=== PATIENT | male | born 1935 | race Caucasian/White ===

== ENCOUNTER → 2016-12-23 | Outpatient (CLI) | payer MEDICARE ==
[2016-12-23 16:07] LABS: Basophils % (A) 0 %; CH 31.7; CHCM 32.6; Eosinophils # (A) 0.1 k/uL (0-0.7); Eosinophils % (A) 2 %; HCT 44.3 % (39.0-53.0); HDW 2.35; HGB 14.1 gm/dL (13.0-17.5); Luc # (Auto) 0.12; Luc % (Auto) 2; Lymphocytes # (A) 1.2 k/uL (1.0-4.8); Lymphocytes % (A) 21 %; MCH 31.1 pg (25.0-35.0); MCHC 31.8 g/dL (31.0-37.0); MCV 97.6 fL (80.0-100.0); Monocytes # (A) 0.4 k/uL (0-1.0); Monocytes % (A) 6 %; Neutrophils # (A) 3.9 k/uL (1.3-7.7); Neutrophils % (A) 69 %; RBC 4.54 m/uL (4.30-5.90); RDW 12.5 % (11.5-15.5); WBC 5.6 k/uL (3.8-10.6); WBC (Perox) 5.45
[2016-12-23 16:17] LABS: INR 1.1 (<1.1); Partial Thromboplastin Time 22.4 sec (22.0-30.0); Prothrombin Time 10.7 sec (9.0-12.0)
[2016-12-23 16:22] LABS: ALT 41 U/L (21-72); AST 26 U/L (17-59); Alkaline Phosphatase 65 U/L (38-126); Anion Gap 9 mmol/L; Blood Urea Nitrogen 21 mg/dL (9-20); Calcium 8.9 mg/dL (8.4-10.2); Carbon Dioxide 27 mmol/L (22-30); Chloride 106 mmol/L (98-107); Glucose 86 mg/dL (74-99); Non-African American GFR(MDRD) >60 (>60 ml/min/1.73 sqM); Potassium 4.9 mmol/L (3.5-5.1); Sodium 142 mmol/L (137-145); Total Bilirubin 0.5 mg/dL (0.2-1.3); Total Protein 6.8 g/dL (6.3-8.2)
[2016-12-23 17:20] LABS: Hemoglobin A1C 5.7 % (4.2-6.1)
[2016-12-23 18:16] LABS: Erythrocyte Sedimentation Rate 2 mm/hr (0-15)
[2016-12-23 18:22] LABS: Vitamin B12 991 pg/mL
[2016-12-23 20:23] LABS: Treponemal Ab Non-Reactive (Non-Reactive)
[2016-12-23 20:39] LABS: ANA w/Reflex to Titer NEGATIVE (NEGATIVE)
[2016-12-24 05:44] LABS: Cardiolipin Ab IgG <9.0 GPL (<15); Cardiolipin Ab IgM 13.8 MPL (<12.5)
== END | disposition home or self-care (01) ==
LOC: LABWHC1 15:15
PROVIDERS: ATTEND Psychiatry & Neurology Neurology
DX: G20 Parkinson's disease (principal); R41.3 Other amnesia; G31.84 Mild cognitive impairment of uncertain or unknown etiology; R25.1 Tremor, unspecified; R90.82 White matter disease, unspecified
CPT/HCPCS: 36415; 80053; 82306; 82607; 82747; 83036; 83090; 84439; 84443; 85025; 85610; 85652; 85730; 86038; 86147; 86618; 86780

== ENCOUNTER 2019-06-22 22:35 | Inpatient (IN) | payer MEDICARE ==
--- NOTE | 2019-06-22 23:26 | ED ---
Altered Mental Status HPI - General Chief Complaint: Altered Mental Status Stated Complaint: sudden immobility Time Seen by Provider: 06/22/19 22:52 Source: patient, EMS Mode of arrival: EMS Limitations: altered mental status, physical limitation - History of Present Illness Initial Comments: This patient is an 83-year-old man with history of Parkinson's disease who comes by ambulance to be evaluated for a change in his mental status. The patient has been less active today and somewhat resistant to getting up and moving. He did have recent change in his Parkinson's disease regimen, which was made by Dr. Shea last week. She had been doing relatively well through Friday, being at a family gathering and interacting with people. Over the course of proximally past 24-30 hours, he has been less active around the home. Family states that when they try to get him up and help him walk he is resisting them. Patient is denying any pain or dyspnea. He denies complaints. MD Complaint: altered mental status Onset/Timin -: days(s) Severity: moderate Consistency of Symptoms: getting worse Context: change in medication Associated Symptoms: difficulty walking - Related Data Allergies Allergy/AdvReac Type Severity Reaction Status Date / Time No Known Allergies Allergy Verified 06/23/19 01:25 Review of Systems ROS Statement: Those systems with pertinent positive or pertinent negative responses have been documented in the HPI. ROS Other: All systems not noted in ROS Statement are negative. Constitutional: Reports: weakness. Denies: fever, chills Respiratory: Denies: cough, dyspnea Cardiovascular: Denies: chest pain, edema, syncope Gastrointestinal: Reports: diarrhea. Denies: abdominal pain, vomiting Genitourinary: Denies: dysuria, hematuria Musculoskeletal: Denies: back pain Neurological: Reports: weakness. Denies: headache, numbness General Exam Limitations: altered mental status, physical limitation General appearance: alert, in no apparent distress Head exam: Present: atraumatic, normocephalic Eye exam: Present: normal appearance. Absent: scleral icterus, conjunctival injection ENT exam: Present: normal oropharynx Neck exam: Present: normal inspection, full ROM Respiratory exam: Present: normal lung sounds bilaterally. Absent: respiratory distress, wheezes, rales, rhonchi, stridor Cardiovascular Exam: Present: regular rate, normal rhythm, normal heart sounds GI/Abdominal exam: Present: soft. Absent: distended, tenderness, guarding, rebound Extremities exam: Present: normal inspection, normal capillary refill. Absent: calf tenderness Neurological exam: Present: alert. Absent: oriented X3 (Patient is oriented to person and place but could not state the date.), motor sensory deficit Skin exam: Present: warm, dry, intact, normal color. Absent: rash Course Vital Signs 06/22/19 06/23/19 22:41 01:05 Temperature 98.6 F Pulse Rate 64 70 Respiratory 18 14 Rate Blood Pressure 136/94 146/96 O2 Sat by Pulse 96 98 Oximetry Medical Decision Making - Lab Data Result diagrams: 06/22/19 23:59 06/22/19 23:59 Lab Results 06/22/19 06/22/19 06/22/19 Range/Units 23:59 23:59 23:59 WBC 7.1 (3.8-10.6) k/uL RBC 4.43 (4.30-5.90) m/uL Hgb 14.0 (13.0-17.5) gm/dL Hct 42.1 (39.0-53.0) % MCV 95.2 (80.0-100.0) fL MCH 31.7 (25.0-35.0) pg MCHC 33.3 (31.0-37.0) g/dL RDW 14.0 (11.5-15.5) % Plt Count 179 (150-450) k/uL Neutrophils % 69 % Lymphocytes % 17 % Monocytes % 7 % Eosinophils % 4 % Basophils % 1 % Neutrophils # 4.9 (1.3-7.7) k/uL Lymphocytes # 1.2 (1.0-4.8) k/uL Monocytes # 0.5 (0-1.0) k/uL Eosinophils # 0.3 (0-0.7) k/uL Basophils # 0.0 (0-0.2) k/uL Sodium 140 (137-145) mmol/L Potassium 3.9 (3.5-5.1) mmol/L Chloride 105 (98-107) mmol/L Carbon Dioxide 26 (22-30) mmol/L Anion Gap 9 mmol/L BUN 24 H (9-20) mg/dL Creatinine 1.21 (0.66-1.25) mg/dL Est GFR (CKD-EPI)AfAm 64 (>60 ml/min/1.73 sqM) Est GFR (CKD-EPI)NonAf 55 (>60 ml/min/1.73 sqM) Glucose 98 (74-99) mg/dL POC Glucose (mg/dL) (75-99) mg/dL POC Glu Piccoloist ID Calcium 9.2 (8.4-10.2) mg/dL Total Bilirubin 0.3 (0.2-1.3) mg/dL AST 24 (17-59) U/L ALT 8 L (21-72) U/L Alkaline Phosphatase 79 (38-126) U/L Troponin I <0.012 (0.000-0.034) ng/mL Total Protein 7.2 (6.3-8.2) g/dL Albumin 4.2 (3.5-5.0) g/dL Urine Color Urine Appearance (Clear) Urine pH (5.0-8.0) Ur Specific Diller (1.001-1.035) Urine Protein (Negative) Urine Glucose (UA) (Negative) Urine Ketones (Negative) Urine Blood (Negative) Urine Nitrite (Negative) Urine Bilirubin (Negative) Urine Urobilinogen (<2.0) mg/dL Ur Leukocyte Esterase (Negative) Urine RBC (0-5) /hpf Urine WBC (0-5) /hpf Urine WBC Clumps (None) /hpf Ur Squamous Epith Cells (0-4) /hpf Urine Bacteria (None) /hpf Hyaline Casts (0-2) /lpf Urine Mucus (None) /hpf Urine Yeast (Budding) (None) /hpf 06/23/19 06/23/19 Range/Units 00:39 01:25 WBC (3.8-10.6) k/uL RBC (4.30-5.90) m/uL Hgb (13.0-17.5) gm/dL Hct (39.0-53.0) % MCV (80.0-100.0) fL MCH (25.0-35.0) pg MCHC (31.0-37.0) g/dL RDW (11.5-15.5) % Plt Count (150-450) k/uL Neutrophils % % Lymphocytes % % Monocytes % % Eosinophils % % Basophils % % Neutrophils # (1.3-7.7) k/uL Lymphocytes # (1.0-4.8) k/uL Monocytes # (0-1.0) k/uL Eosinophils # (0-0.7) k/uL Basophils # (0-0.2) k/uL Sodium (137-145) mmol/L Potassium (3.5-5.1) mmol/L Chloride (98-107) mmol/L Carbon Dioxide (22-30) mmol/L Anion Gap mmol/L BUN (9-20) mg/dL Creatinine (0.66-1.25) mg/dL Est GFR (CKD-EPI)AfAm (>60 ml/min/1.73 sqM) Est GFR (CKD-EPI)NonAf (>60 ml/min/1.73 sqM) Glucose (74-99) mg/dL POC Glucose (mg/dL) 91 (75-99) mg/dL POC Glu Piccoloist ID Marta Jorge Calcium (8.4-10.2) mg/dL Total Bilirubin (0.2-1.3) mg/dL AST (17-59) U/L ALT (21-72) U/L Alkaline Phosphatase (38-126) U/L Troponin I (0.000-0.034) ng/mL Total Protein (6.3-8.2) g/dL Albumin (3.5-5.0) g/dL Urine Color Yellow Urine Appearance Clear (Clear) Urine pH 5.5 (5.0-8.0) Ur Specific Diller 1.019 (1.001-1.035) Urine Protein Trace H (Negative) Urine Glucose (UA) Negative (Negative) Urine Ketones Negative (Negative) Urine Blood Negative (Negative) Urine Nitrite Negative (Negative) Urine Bilirubin Negative (Negative) Urine Urobilinogen <2.0 (<2.0) mg/dL Ur Leukocyte Esterase Moderate H (Negative) Urine RBC 2 (0-5) /hpf Urine WBC 32 H (0-5) /hpf Urine WBC Clumps Rare H (None) /hpf Ur Squamous Epith Cells <1 (0-4) /hpf Urine Bacteria Rare H (None) /hpf Hyaline Casts 9 H (0-2) /lpf Urine Mucus Occasional H (None) /hpf Urine Yeast (Budding) Occasional H (None) /hpf - EKG Data -: EKG Interpreted by Ne EKG shows normal: sinus rhythm, axis (Normal), intervals (Normal), QRS complexes (Normal), ST-T waves (Normal) Rate: normal (Rate 66 bpm) Interpretation: normal EKG Disposition Clinical Impression: Altered mental status, Dehydration, Urinary tract infection, Parkinsons disease Disposition: ADMITTED IP TO THIS HOSP Condition: Fair Is patient prescribed a controlled substance at d/c from ED?: No Referrals: Sohail Chavez DO [Primary Care Provider] - 1-2 days
[2019-06-23 00:42] LABS: Basophils % (A) 1 %; Eosinophils # (A) 0.3 k/uL (0-0.7); Eosinophils % (A) 4 %; HCT 42.1 % (39.0-53.0); Lymphocytes # (A) 1.2 k/uL (1.0-4.8); Lymphocytes % (A) 17 %; MCH 31.7 pg (25.0-35.0); MCHC 33.3 g/dL (31.0-37.0); MCV 95.2 fL (80.0-100.0); Mean Platelet Volume 7.6; Monocytes # (A) 0.5 k/uL (0-1.0); Monocytes % (A) 7 %; Neutrophils # (A) 4.9 k/uL (1.3-7.7); Neutrophils % (A) 69 %; Platelet Count 179 k/uL (150-450); RBC 4.43 m/uL (4.30-5.90); WBC 7.1 k/uL (3.8-10.6)
[2019-06-23 00:42] LABS: Glucose,Whole Blood 91 mg/dL (75-99)
[2019-06-23 00:56] LABS: Albumin 4.2 g/dL (3.5-5.0); Calcium 9.2 mg/dL (8.4-10.2); Total Bilirubin 0.3 mg/dL (0.2-1.3); Total Protein 7.2 g/dL (6.3-8.2)
--- NOTE | 2019-06-23 00:59 | XR ---
EXAM: XR Chest, 1 View CLINICAL HISTORY: ITS.REASON XR Reason: altered mental status TECHNIQUE: Frontal view of the chest. COMPARISON: No relevant prior studies available. FINDINGS: Lungs: Mild subsegmental atelectasis and/or scarring at the right base. Pleural space: Unremarkable. No pneumothorax. Heart: Unremarkable. No cardiomegaly. Mediastinum: Unremarkable. Bones/joints: Unremarkable. IMPRESSION: No acute cardiopulmonary disease.
[2019-06-23 01:10] LABS: Potassium 3.9 mmol/L (3.5-5.1)
[2019-06-23] MEDS ORDERED: SODIUM CHLORIDE 0.9% 1,000 ML IV ONE (01:39)
[2019-06-23 01:46] LABS: Appearance,Urine Clear (Clear); Bacteria,Urine Rare /hpf; Bilirubin,Urine Negative (Negative); Blood,Urine Negative (Negative); Budding Yeast,Urine Occasional /hpf; Color,Urine Yellow; Glucose,Urine (UA) Negative (Negative); Hyaline Casts,Urine 9 /lpf (0-2); Ketones,Urine Negative (Negative); Leukocyte Esterase,Urine Moderate (Negative); Mucus,Urine Occasional /hpf; Nitrite,Urine Negative (Negative); PH, Urine 5.5 (5.0-8.0); Protein,Urine Trace (Negative); RBC,Urine 2 /hpf (0-5); Specific Gravity,Urine 1.019 (1.001-1.035); Squamous Epithelial Cell,Urine <1 /hpf (0-4); Urobilinogen,Urine <2.0 mg/dL (<2.0)
[2019-06-23] MEDS ORDERED: LEVOFLOXACIN 750 MG TAB PO STA (02:12)
[2019-06-23] MEDS ORDERED: NALOXONE 0.4 MG/ML 1 ML VIAL IV PRN (02:57)
[2019-06-23] MEDS ORDERED: ACETAMINOPHEN TAB 325 MG TAB PO PRN (02:57)
[2019-06-23] MEDS ORDERED: ONDANSETRON 4 MG/2 ML VIAL IVP PRN (02:57)
[2019-06-23] MEDS ORDERED: SODIUM CHLORIDE 0.9% 1,000 ML IV SCH (03:00)
[2019-06-23] MEDS ORDERED: LORazepam 2 MG/ML INJ IM STA (11:21)
[2019-06-23] MEDS ORDERED: IPRATROPIUM-ALBUTEROL 3 ML NEB INHALATION PRN (11:23)
[2019-06-23] MEDS ORDERED: NITROGLYCERIN SL TABS 0.4 MG TAB SUBLINGUAL PRN (11:29)
[2019-06-23] MEDS ORDERED: AMMONIUM LACTATE 12% CREAM 140 GM TUBE TOPICAL PRN (11:29)
[2019-06-23] MEDS ORDERED: PRAMIPEXOLE 0.125 MG TAB PO SCH (11:30)
[2019-06-23] MEDS: IPRATROPIUM-ALBUTEROL 3 ML NEB INHALATION SCH ×3 (11:48→20:31)
[2019-06-23] MEDS ORDERED: IPRATROPIUM-ALBUTEROL 3 ML NEB INHALATION SCH (13:00)
--- NOTE | 2019-06-23 13:02 | P.CNNES ---
History of Present Illness Consult date: 06/23/19 Requesting physician: Ellie Mckeon Reason for Consult: Parkinson's disease Chief complaint: Confused and shaky History of Present Illness: This is an 83 yo male h/o Parkinson's disease who sees Dr. Shea in oupt. His PD med was just recently adjusted on 06/14/19. Since 06/21/19, he has been going downhill physically, moving less well and getting more confused. He is now floridly confused and agitated and pulled out his IV. No report of head trauma or seizure activity. While in the ER, he was found to be dehydrated and have a UTI. Nursing is working on getting access so IV treatment may resume. Patient cannot provide any meaningful history. My historical information was obtained by discussing the case with the family and reviewing available medical records in EMR. Review of Systems Unable to obtain due to AMS Medications and Allergies Home Medications Medication Instructions Recorded Confirmed Type Ammonium Lactate Cream [Lac-Hydrin 1 applic TOPICAL BID PRN 06/23/19 06/23/19 History 12% Cream] Aspirin 81 mg PO DAILY 06/23/19 06/23/19 History Carbidopa-Levodopa 25-100 mg 1 tab PO HS 06/23/19 06/23/19 History [Sinemet 25-100 mg] Carbidopa-Levodopa ER 50-200Mg 1 tab PO DAILY 06/23/19 06/23/19 History [Sinemet CR 50-200 mg] Furosemide [Lasix] 40 mg PO DAILY 06/23/19 06/23/19 History Garlic 1 tab PO DAILY 06/23/19 06/23/19 History Lansoprazole 30 mg PO DAILY 06/23/19 06/23/19 History Levothyroxine Sodium [Synthroid] 50 mcg PO DAILY 06/23/19 06/23/19 History Metoprolol Tartrate 12.5 mg PO DAILY 06/23/19 06/23/19 History Mometasone Furoate [Elocon 0.1% 1 applic TOPICAL DAILY 06/23/19 06/23/19 History Soln] Multivitamins, Thera [Multivitamin 1 tab PO DAILY 06/23/19 06/23/19 History (formulary)] Nitroglycerin 0.4 mg SL Q5M PRN 06/23/19 06/23/19 History Pramipexole [Mirapex] 0.125 mg PO BID 06/23/19 06/23/19 History Primidone [Mysoline] 50 mg PO DAILY 06/23/19 06/23/19 History Simvastatin 40 mg PO HS 06/23/19 06/23/19 History Spironolactone 12.5 mg PO DAILY 06/23/19 06/23/19 History Vitamin E (Dl,Tocopheryl Acet) 400 unit PO DAILY 06/23/19 06/23/19 History [Vitamin E] Allergies Allergy/AdvReac Type Severity Reaction Status Date / Time No Known Allergies Allergy Verified 06/23/19 09:32 Physical Examination - Vital Signs Vital Signs: Vital Signs Temp Pulse Pulse Resp BP BP Pulse Ox 06/23/19 12:02 120 H 06/23/19 11:48 116 H 06/23/19 06:48 97.5 F L 69 15 121/74 95 06/23/19 04:26 98.0 F 70 16 164/85 100 06/23/19 01:05 70 14 146/96 98 06/22/19 22:41 98.6 F 64 18 136/94 96 Intake and Output 06/22/19 06/23/19 06/23/19 22:59 06:59 14:59 Other: Weight 88.451 kg Gen Diffusely tremulous and confused HEENT NCAT Sclera without icterus O/P clear Neck Supple No carotid bruit Cor RRR no m/r/g Lungs CTAB Abd Soft NTND +BS Ext Warm to touch No edema Neuro MS Awake mumbles unintelligibly does not follow commands does not appear to communicate via other non-verbal means further detailed language function cannot be assessed CN PERRL blinks to threat bilaterally symmetric grimace +hypophonia +cough Motor Normal bulk Bilateral [place] Diffusely tremulous no asterixis, myoclonus or other adventitious movements DOWNS x4 but unable to cooperate for individual muscle group strength testing Sens Localizes to nailbed stim x4 Coord Cannot test due to AMS DTRs 2+/4 sym throughout Toes downgoing bilaterally No clonus at achilles Gait Deferred Results - Laboratory Findings CBC and BMP: 06/22/19 23:59 06/22/19 23:59 Abnormal Lab Findings: Abnormal Labs 06/22/19 06/23/19 23:59 01:25 BUN 24 H ALT 8 L Urine Protein Trace H Ur Leukocyte Esterase Moderate H Urine WBC 32 H Urine WBC Clumps Rare H Urine Bacteria Rare H Hyaline Casts 9 H Urine Mucus Occasional H Urine Yeast (Budding) Occasional H Assessment and Plan Assessment: Metabolic encephalopathy from dehydration and UTI Probable Parkinson's disease Plan: -We generally do not aggressively titrate levodopa in-house because it can easily worsen delirium, which he already has -Levodopa is best adjusted when patient is not acutely ill; family agree. I also do not believe his recent PD med titration led to his current neurological picture -IV access then IVF and antibiotics -Medical management per primary team -PT/OT when able -EEG if he does not improve mental status-noguera with medical treatment. Right now, it would be difficult to obtain a good recording due to his constant movements -Try to avoid benzodiazepine if possible as it can worsen his delirium when the effects of the sedative wear off -Will follow up -d/w patient/family at bedside in detail. All questions answered. Thank you for this consultation. Please call with ?. Time with Patient: Greater than 30 (Time spent in direct patient care, greater than 50% of which was spent in [id number] counseling and coordination of care: 70 minutes)
[2019-06-23] MEDS: PRIMIDONE 50 MG TAB PO SCH ×2 (13:20→21:01)
[2019-06-23] MEDS: METOPROLOL TARTRATE 12.5 MG TAB PO SCH ×3 (13:20→21:06)
[2019-06-23] MEDS: CARBIDOPA-LEVODOPA ER 50-200MG 1 EACH TABLET.ER PO SCH ×2 (13:20→17:28)
--- NOTE | 2019-06-23 13:49 | P.HPIM ---
History of Present Illness H&P Date: 06/23/19 Chief Complaint: Metabolic encephalopathy This is an 83-year-old male one of Dr. Chavez with a previous medical history significant for Parkinson disease as an outpatient follows with Dr. Shea, history of CAD post-PCI and stent placement under the care of card iology and regular basis, hypertension and hypertensive cardiovascular disease, hypothyroidism, patient was recently seen by Dr. Shea as an outpatient his Parkinson medications were adjusted and these adjustment were done on 06/14/2019 and by 06/21/2019 patient developed to have a significant confusion and he became more physically disabled not able to move extremities trying to fall backward and the patient has been having more confusion and mental status changes so he was brought to the ER at [facility] yesterday for evaluation he was found to have a mild UTI without evidence of sepsis, patient was started on IV antibiotic in the form of Levaquin and subsequently was switched to IV Rocephin however the patient did pull his IV because of his confusion and delirium he was seen in consultation by neurology was thought that the patient has metabolic encephalopathy due to UTI with possible sepsis and probable Parkinson disease without any evidence of any seizure activity at this time, he was recommended for the patient to be treated medically and hold off any benzodiazepine at this point in time since it may increased risk of confusion and delirium. Review of Systems ROS unobtainable: due to mental status (Could not be obtained as the patient has significant mental status changes.) Past Medical History Past Medical History: Coronary Artery Disease (CAD) (Parkinson disease.), COPD, Hyperlipidemia, Hypertension, Neurologic Disorder, Osteoarthritis (OA), Thyroid Disorder Smoking Status: Former smoker (Patient smoked about half pack currently is full for about 15 years and quit about 30 years ago.) - Past Family History Mother Family Medical History: Congestive Heart Failure (CHF) (Mother at age of 89 from congestive heart failure.) Father Family Medical History: Cancer (Father at age of 86 from urethral cancer.) Brother(s) Family Medical History: No Reported History (Patient has one brother no major medical problems.) Sister(s) Family Medical History: Cancer (Patient has 3 sisters one of them with lupus one with breast cancer and the third one with cancer of unknown origin) Son(s) Family Medical History: No Reported History (Patient has 2 sons no major medical problems.) Daughter(s) Family Medical History: Cancer (2 daughters one of them with papillary carcinoma of the thyroid with hyperlipidemia the other one with breast cancer status post bilateral mastectomy.) Medications and Allergies Home Medications Medication Instructions Recorded Confirmed Type Ammonium Lactate Cream [Lac-Hydrin 1 applic TOPICAL BID PRN 06/23/19 06/23/19 History 12% Cream] Aspirin 81 mg PO DAILY 06/23/19 06/23/19 History Carbidopa-Levodopa 25-100 mg 1 tab PO HS 06/23/19 06/23/19 History [Sinemet 25-100 mg] Carbidopa-Levodopa ER 50-200Mg 1 tab PO DAILY 06/23/19 06/23/19 History [Sinemet CR 50-200 mg] Furosemide [Lasix] 40 mg PO DAILY 06/23/19 06/23/19 History Garlic 1 tab PO DAILY 06/23/19 06/23/19 History Lansoprazole 30 mg PO DAILY 06/23/19 06/23/19 History Levothyroxine Sodium [Synthroid] 50 mcg PO DAILY 06/23/19 06/23/19 History Metoprolol Tartrate 12.5 mg PO DAILY 06/23/19 06/23/19 History Mometasone Furoate [Elocon 0.1% 1 applic TOPICAL DAILY 06/23/19 06/23/19 History Soln] Multivitamins, Thera [Multivitamin 1 tab PO DAILY 06/23/19 06/23/19 History (formulary)] Nitroglycerin 0.4 mg SL Q5M PRN 06/23/19 06/23/19 History Pramipexole [Mirapex] 0.125 mg PO BID 06/23/19 06/23/19 History Primidone [Mysoline] 50 mg PO DAILY 06/23/19 06/23/19 History Simvastatin 40 mg PO HS 06/23/19 06/23/19 History Spironolactone 12.5 mg PO DAILY 06/23/19 06/23/19 History Vitamin E (Dl,Tocopheryl Acet) 400 unit PO DAILY 06/23/19 06/23/19 History [Vitamin E] Allergies Allergy/AdvReac Type Severity Reaction Status Date / Time No Known Allergies Allergy Verified 06/23/19 09:32 Physical Exam Vitals: Vital Signs Temp Pulse Pulse Resp BP BP Pulse Ox 06/23/19 12:02 120 H 06/23/19 11:48 116 H 06/23/19 06:48 97.5 F L 69 15 121/74 95 06/23/19 04:26 98.0 F 70 16 164/85 100 06/23/19 01:05 70 14 146/96 98 06/22/19 22:41 98.6 F 64 18 136/94 96 Intake and Output 06/22/19 06/23/19 06/23/19 22:59 06:59 14:59 Other: Weight 88.451 kg - Constitutional General appearance: average body habitus, no acute distress - EENT Eyes: anicteric sclerae, EOMI, PERRLA, no scleral icterus, normal appearance ENT: hearing grossly normal, NA/AT, normal oropharynx, no thrush Ears: bilateral: normal - Neck Neck: no lymphadenopathy, normal ROM, rigidity, no stridor, no thyromegaly Carotids: bilateral: upstroke normal Thyroid: bilateral: normal size - Respiratory Respiratory: bilateral: diminished, wheezing, prolonged expiration, negative: dullness, rales, rhonchi - Cardiovascular Rhythm: regular Heart sounds: normal: S1, S2 Abnormal Heart Sounds: systolic murmur, no S3 Gallop, no S4 Gallop - Gastrointestinal General gastrointestinal: normal bowel sounds, soft, no splenomegaly, no tenderness, no umbilical hernia, ventral hernia - Integumentary Integumentary: normal, normal turgor - Neurologic Neurologic: CNII-XII intact - Musculoskeletal Musculoskeletal: strength equal bilaterally - Psychiatric Psychiatric: no A&O x's 3, no appropriate affect, no intact judgment & insight Results CBC & Chem 7: 06/22/19 23:59 06/22/19 23:59 Labs: Abnormal Lab Results - Last 24 Hours (Table) 06/22/19 06/23/19 Range/Units 23:59 01:25 BUN 24 H (9-20) mg/dL ALT 8 L (21-72) U/L Urine Protein Trace H (Negative) Ur Leukocyte Esterase Moderate H (Negative) Urine WBC 32 H (0-5) /hpf Urine WBC Clumps Rare H (None) /hpf Urine Bacteria Rare H (None) /hpf Hyaline Casts 9 H (0-2) /lpf Urine Mucus Occasional H (None) /hpf Urine Yeast (Budding) Occasional H (None) /hpf Microbiology - Last 24 Hours (Table) 06/23/19 01:25 Urine Culture - Preliminary Urine,Voided Thrombosis Risk Factor Assmnt - DVT/VTE Prophylaxis DVT/VTE Prophylaxis: Pharmacologic Prophylaxis ordered, Mechanical Prophylaxis ordered Assessment and Plan Assessment: Assessment and plan: 1. Metabolic encephalopathy due to possible UTI and sepsis along with Parkinson disease . Start the patient on IV fluid in the form of normal saline 75 mL an hour, start the patient on Rocephin 1 g IV piggyback every 24 hours, discontinue Levaquin for now, urine culture and blood culture, monitor the patient very closely, neurology consultation for further evaluation and recommendation. 2. Parkinson disease. Continue patient on Sinemet 25/100 milligrams at bedtime along with the Sinemet CR 50/200 one tablet in the morning, continue pramipexole 0.125 mg orally twice every day, neurology consultation for further recommendations. 3. CAD post-PCI. Continue metoprolol 12.5 mg once every day, aspirin 81 mg once every day, Lipitor 20 mg orally once every day, nitro glycerin as needed, continue with Lasix and spironolactone. 4. Hypertension and hypertensive cardiovascular disease. Continue metoprolol 12.5 mg orally once every day. 5. Hyperlipidemia. Continue Lipitor 20 mg orally once every day. 6. Hypothyroidism. Continue patient on Synthroid 50 g orally once every day. 7. DVT prophylaxis. Heparin 5000 units subcutaneously every 8 hours. 8. GI prophylaxis. Protonix 40 mg orally once every day. 9. UTI with sepsis. Continue patient on Rocephin 1 g piggyback every 24 hours. Check urine culture and blood cultures. 10. Patient is full code. 11. Admitted to inpatient. Estimate a length of stay 2 midnights.
[2019-06-23] MEDS ORDERED: ACETAMINOPHEN IV (For NPO) 1,000 MG in EMPTY BAG 1 BAG IVPB STA (14:57)
[2019-06-23] MEDS: PANTOPRAZOLE 40 MG TABLET PO SCH (17:28)
[2019-06-23] MEDS: SPIRONOLACTONE 25 MG TAB PO SCH (17:29)
[2019-06-23] MEDS: CARBIDOPA-LEVODOPA 25-100 MG 1 EACH TAB PO SCH ×2 (17:30→21:06)
[2019-06-23] MEDS: PRAMIPEXOLE 0.25 MG TAB PO SCH (17:30)
[2019-06-23] MEDS: SODIUM CHLORIDE 0.9% 1,000 ML IV SCH (19:20)
[2019-06-23] MEDS ORDERED: CARBIDOPA-LEVODOPA 25-100 MG 1 EACH TAB PO SCH (21:00)
[2019-06-23] MEDS: ATORVASTATIN 20 MG TAB PO SCH (21:07)
--- NOTE | 2019-06-23 23:54 | P.CONS ---
History of Present Illness - Reason for Consult Consult date: 06/23/19 Urinary tract infection Requesting physician: Charis Manuel - Chief Complaint Weakness and confusion x 1 day - History of Present Illness Patient is 83-year-old male with a past medical history significant for Parkinson disease for the patient follows with , patient did have a recent adjustment of his Parkinson medication, and apparently the patient seemed to have some symptoms of weakness that has been blamed on his adjustment in his medication, [place] and apparently was doing okay except being weak no clear history of any mosquito bites on the way back they did stayed at one of his daughter and per he did joke around with his grandkids however that evening the patient started getting more weak and un able to walk around and falling with the symptoms the patient was brought into [facility] ER the patient was afebrile initially chest x-ray was negative for any pneumonia patient UA was positive the patient was started on Levaquin and subsequently switched to Rocephin the patient did spike a fever of 102F this afternoon that prompted this infection this consultation apparently the patient was slightly agitated and worked out for the patient has received a dose of Ativan and the patient seemed to be more lethargic at the time of my evaluation making cc slightly limited and most information has been obtained from the and the nursing staff Review of Systems Positive points has been mentioned in HPI complete review could not be obtained because of the patient mental status Past Medical History Past Medical History: Coronary Artery Disease (CAD) (Parkinson disease.), COPD, Hyperlipidemia, Hypertension, Neurologic Disorder, Osteoarthritis (OA), Thyroid Disorder Smoking Status: Former smoker (Patient smoked about half pack currently is full for about 15 years and quit about 30 years ago.) - Past Family History Mother Family Medical History: Congestive Heart Failure (CHF) (Mother at age of 89 from congestive heart failure.) Father Family Medical History: Cancer (Father at age of 86 from urethral cancer.) Brother(s) Family Medical History: No Reported History (Patient has one brother no major medical problems.) Sister(s) Family Medical History: Cancer (Patient has 3 sisters one of them with lupus one with breast cancer and the third one with cancer of unknown origin) Son(s) Family Medical History: No Reported History (Patient has 2 sons no major medical problems.) Daughter(s) Family Medical History: Cancer (2 daughters one of them with papillary carcinoma of the thyroid with hyperlipidemia the other one with breast cancer status post bilateral mastectomy.) Medications and Allergies Home Medications Medication Instructions Recorded Confirmed Type Ammonium Lactate Cream [Lac-Hydrin 1 applic TOPICAL BID PRN 06/23/19 06/23/19 History 12% Cream] Aspirin 81 mg PO DAILY 06/23/19 06/23/19 History Carbidopa-Levodopa 25-100 mg 1 tab PO BID 06/23/19 06/23/19 History [Sinemet 25-100 mg] Carbidopa-Levodopa ER 50-200Mg 1 tab PO DAILY 06/23/19 06/23/19 History [Sinemet CR 50-200 mg] Furosemide [Lasix] 40 mg PO DAILY 06/23/19 06/23/19 History Garlic 1 tab PO DAILY 06/23/19 06/23/19 History Lansoprazole 30 mg PO DAILY 06/23/19 06/23/19 History Levothyroxine Sodium [Synthroid] 50 mcg PO DAILY 06/23/19 06/23/19 History Metoprolol Tartrate 12.5 mg PO DAILY 06/23/19 06/23/19 History Mometasone Furoate [Elocon 0.1% 1 applic TOPICAL DAILY 06/23/19 06/23/19 History Soln] Multivitamins, Thera [Multivitamin 1 tab PO DAILY 06/23/19 06/23/19 History (formulary)] Nitroglycerin 0.4 mg SL Q5M PRN 06/23/19 06/23/19 History Pramipexole [Mirapex] 0.25 mg PO TID 06/23/19 06/23/19 History Simvastatin 40 mg PO HS 06/23/19 06/23/19 History Spironolactone 12.5 mg PO DAILY 06/23/19 06/23/19 History Vitamin E (Dl,Tocopheryl Acet) 400 unit PO DAILY 06/23/19 06/23/19 History [Vitamin E] Allergies Allergy/AdvReac Type Severity Reaction Status Date / Time No Known Allergies Allergy Verified 06/23/19 09:32 Physical Exam Vitals: Vital Signs Temp Pulse Pulse Resp BP BP Pulse Ox 06/23/19 14:37 102.9 F H 114 H 15 126/73 92 L 06/23/19 12:02 120 H 06/23/19 11:48 116 H 06/23/19 06:48 97.5 F L 69 15 121/74 95 06/23/19 04:26 98.0 F 70 16 164/85 100 06/23/19 01:05 70 14 146/96 98 06/22/19 22:41 98.6 F 64 18 136/94 96 Intake and Output 06/23/19 06/23/19 06/23/19 06:59 14:59 22:59 Intake Total 180 Balance 180 Intake: Oral 180 GENERAL DESCRIPTION: Elderly male lying in bed, no distress. No tachypnea or accessory muscle of respiration use. HEENT: Shows Pallor , no scleral icterus. Oral mucous membrane is dry. No pharyngeal erythema or thrush NECK: Trachea central, no thyromegaly. LUNGS: Unlabored breathing. Decreased basilar the base No wheeze or crackle. HEART: S1, S2, regular rate and rhythm. No loud murmur ABDOMEN: Soft, no tenderness , guarding or rigidity, no organomegaly EXTREMITIES: No edema of feet. SKIN: No rash, no masses palpable. NEUROLOGICAL: The patient is sleepy and lethargic and orientation could not be determined slight neck rigidity Results CBC & Chem 7: 06/22/19 23:59 06/22/19 23:59 Labs: Abnormal Lab Results - Last 24 Hours (Table) 06/22/19 06/23/19 Range/Units 23:59 01:25 BUN 24 H (9-20) mg/dL ALT 8 L (21-72) U/L Urine Protein Trace H (Negative) Ur Leukocyte Esterase Moderate H (Negative) Urine WBC 32 H (0-5) /hpf Urine WBC Clumps Rare H (None) /hpf Urine Bacteria Rare H (None) /hpf Hyaline Casts 9 H (0-2) /lpf Urine Mucus Occasional H (None) /hpf Urine Yeast (Budding) Occasional H (None) /hpf Microbiology - Last 24 Hours (Table) 06/23/19 01:25 Urine Culture - Preliminary Urine,Voided Assessment and Plan Assessment: 1-patient with fever and mental status changes-- in this patient who to have a positive UA underlying urinary source not entirely excluded likely from enteric gram-negative pathogen, as the patient currently with no other obvious focus of infection chest x-ray was negative abdomen is soft on clinical examination and no evidence of any cellulitis or joint swelling, underlying TRAFFIC ENUMERATOR infection need to be ruled out as well, however RN mention his mentation seemed to have gone down after he did receive a dose of Ativan, hence we will hold on lumbar puncture at this point hoping for the Ativan effect to be gone by tomorrow morning, if no improvement LP should be considered (1) Urinary tract infection Current Visit: Yes Status: Acute Code(s): N39.0 - URINARY TRACT INFECTION, SITE NOT SPECIFIED SNOMED Code(s): 72496571 Plan: 1-Rocephin 1 g IV piggyback daily 2-gentle IV fluid 3-if no improvement in mentation by tomorrow to consider LP we will follow on clinical condition and culture to further adjust medication if needed Thank you for this consultation will follow this patient along with you Time with Patient: Greater than 30
[2019-06-24] MEDS: SODIUM CHLORIDE 0.9% 1,000 ML IV SCH ×2 (02:23→12:47)
[2019-06-24] MEDS: LEVOTHYROXINE 50 MCG TAB PO SCH (05:36)
[2019-06-24 07:04] LABS: HCT 35.3 % (39.0-53.0); MCH 32.5 pg (25.0-35.0); MCHC 33.9 g/dL (31.0-37.0); MCV 95.9 fL (80.0-100.0); Mean Platelet Volume 7.3; Platelet Count 159 k/uL (150-450); RBC 3.68 m/uL (4.30-5.90); RDW 12.7 % (11.5-15.5); WBC 9.6 k/uL (3.8-10.6)
[2019-06-24 07:11] LABS: Albumin 3.1 g/dL (3.5-5.0); Calcium 8.8 mg/dL (8.4-10.2); Potassium 3.7 mmol/L (3.5-5.1); Total Bilirubin 0.6 mg/dL (0.2-1.3); Total Protein 5.5 g/dL (6.3-8.2)
[2019-06-24] MEDS: IPRATROPIUM-ALBUTEROL 3 ML NEB INHALATION SCH ×4 (08:26→20:15)
[2019-06-24] MEDS: CARBIDOPA-LEVODOPA ER 50-200MG 1 EACH TABLET.ER PO SCH (09:45)
[2019-06-24] MEDS: PRAMIPEXOLE 0.25 MG TAB PO SCH ×3 (09:45→16:58)
[2019-06-24] MEDS: FUROSEMIDE 40 MG TAB PO SCH (09:46)
[2019-06-24] MEDS: VITAMIN E (DL,TOCOPHERYL ACET) 400 UNIT CAP PO SCH (09:46)
[2019-06-24] MEDS: SPIRONOLACTONE 25 MG TAB PO SCH (09:46)
[2019-06-24] MEDS: TRIAMCINOLONE 0.1% CREAM 80 GM TUBE TOPICAL SCH (09:46)
[2019-06-24] MEDS: PANTOPRAZOLE 40 MG TABLET PO SCH (09:46)
[2019-06-24] MEDS: METOPROLOL TARTRATE 12.5 MG TAB PO SCH (09:46)
[2019-06-24] MEDS: ASPIRIN 81 MG PO SCH (09:46)
[2019-06-24] MEDS: CARBIDOPA-LEVODOPA 25-100 MG 1 EACH TAB PO SCH ×2 (09:46→16:58)
--- NOTE | 2019-06-24 10:11 | P.PN ---
Subjective Progress Note Date: 06/24/19 Principal diagnosis: AMS/metabolic encephalopathy More awake and alert. Conversive. c/o thirst. No new neuro c/o. Objective - Vital Signs Vital signs: Vital Signs Temp 97.4 F L 06/24/19 07:00 Pulse 67 06/24/19 07:00 Resp 16 06/24/19 07:00 BP 126/74 06/24/19 07:00 Pulse Ox 97 06/24/19 07:00 Intake & Output 06/23/19 06/24/19 06/24/19 18:59 06:59 18:59 Intake Total 180 500 Balance 180 500 Intake: Intake, IV Titration 500 Amount Sodium Chloride 0.9% 1, 500 000 ml @ 100 mls/hr IV . Q10H [facility] Rx#:[id number] Oral 180 Other: Voiding Method Diaper # Voids 1 - Exam Gen NAD Pleasant and cooperative MS A+Ox3 Knows 06/2019 in [place], [place] and [place] President Tells me about his great-grandchildren being born in this hospital Able to follow all commands CN II-XII grossly intact no nystagmus +hypophonia Motor Normal bulk Bilateral cogwheeling at wrist Bilateral resting tremor with bradykinesia DOWNS x4 Sens Intact to LT x4 Coord No dysmetria as he holds onto my hand with each of his DTRs 2+/4 sym throughout Gait Deferred - Labs CBC & Chem 7: 06/24/19 06:40 06/24/19 06:40 Labs: Abnormal Lab Results - Last 24 Hours (Table) 06/24/19 06/24/19 Range/Units 06:40 06:40 RBC 3.68 L (4.30-5.90) m/uL Hgb 12.0 L (13.0-17.5) gm/dL Hct 35.3 L (39.0-53.0) % Chloride 113 H (98-107) mmol/L AST 87 H (17-59) U/L ALT 17 L (21-72) U/L Total Protein 5.5 L (6.3-8.2) g/dL Albumin 3.1 L (3.5-5.0) g/dL Microbiology - Last 24 Hours (Table) 06/22/19 23:59 Blood Culture - Preliminary Blood No Growth after 24 hours 06/23/19 01:25 Urine Culture - Preliminary Urine,Voided Assessment and Plan Assessment: Metabolic encephalopathy from dehydration and UTI- much improved with rehydration and antibiotic treatment Probable Parkinson's disease- stable Plan: -We generally do not aggressively titrate levodopa or dopamine agonist in-house as they can easily precipitate or worsen delirium in an acutely ill patient -Continue his current outpatient PD meds. Follow up with outpatient neurology for med adjustment -IVF and antibiotics -DAIRY NUTRITION SPECIALIST infection less likely given significant improvement of his mental status with above treatment; ID following as well, appreciate input -Medical management per primary team -PT/OT -No need for EEG given resolution of his metabolic encephalopathy with medical treatment -Avoid benzodiazepines if possible -d/w patient at bedside in detail. All questions answered -No further inpatient neuro recs at this time. Will revisit patient prn. Please call with new ?. Thank you again for this consultation. Time with Patient: Less than 30 (Time spent in direct patient care, greater than 50% of which was spent in [id number] counseling and coordination of care: 25 minutes)
--- NOTE | 2019-06-24 13:41 | P.PN ---
Subjective Progress Note Date: 06/24/19 This is an 83-year-old male one of Dr. Chavez with a previous medical history significant for Parkinson disease as an outpatient follows with Dr. Shea, history of CAD post-PCI and stent placement under the care of cardiology and regular basis, hypertension and hypertensive cardiovascular di sease, hypothyroidism, patient was recently seen by Dr. Shea as an outpatient his Parkinson medications were adjusted and these adjustment were done on 06/14/2019 and by 06/21/2019 patient developed to have a significant confusion and he became more physically disabled not able to move extremities trying to fall backward and the patient has been having more confusion and mental status changes so he was brought to the ER at [facility] yesterday for evaluation he was found to have a mild UTI without evidence of sepsis, patient was started on IV antibiotic in the form of Levaquin and subsequently was switched to IV Rocephin however the patient did pull his IV because of his confusion and delirium he was seen in consultation by neurology was thought that the patient has metabolic encephalopathy due to UTI with possible sepsis and probable Parkinson disease without any evidence of any seizure activity at this time, he was recommended for the patient to be treated medically and hold off any benzodiazepine at this point in time since it may increased risk of confusion and delirium. 06/24: Patient has been seen by Dr. Abdullahi with recommendations continue Rocephin. Urine culture and blood culture are in progress. He has been afebrile overnight. WBC count remains normal. If no improvement in mentation and an LP was recommended. Patient has had significant improvement overnight. He was able to eat almost all of his breakfast. Tremors have resolved slowly after 1 dose of IM Ativan 0.5 mg. The patient has been seen by Dr. Gavin for metabolic encephalopathy secondary to dehydration and UTI. He has recommended continuing patient same outpatient medications for his Parkinson's disease. No need for EEG and avoid benzodiazepines. Heart rate this morning is 108, blood pressure 126/74, pulse ox 97% on room air. Objective - Vital Signs Vital signs: Vital Signs Temp 97.4 F L 06/24/19 07:00 Pulse 108 H 06/24/19 10:48 Resp 16 06/24/19 07:00 BP 126/74 06/24/19 07:00 Pulse Ox 97 06/24/19 07:00 Intake & Output 06/23/19 06/24/19 06/24/19 18:59 06:59 18:59 Intake Total 180 500 Balance 180 500 Intake: Intake, IV Titration 500 Amount Sodium Chloride 0.9% 1, 500 000 ml @ 100 mls/hr IV . Q10H [facility] Rx#:[id number] Oral 180 Other: Voiding Method Diaper # Voids 1 - Exam Review of Systems ROS unobtainable: due to mental status (Could not be obtained as the patient has significant mental status changes.) - Constitutional General appearance: average body habitus, no acute distress - EENT Eyes: anicteric sclerae, EOMI, PERRLA, no scleral icterus, normal appearance ENT: hearing grossly normal, NA/AT, normal oropharynx, no thrush Ears: bilateral: normal - Neck Neck: no lymphadenopathy, normal ROM, rigidity, no stridor, no thyromegaly Carotids: bilateral: upstroke normal Thyroid: bilateral: normal size - Respiratory Respiratory: bilateral: diminished, wheezing, prolonged expiration, negative: dullness, rales, rhonchi - Cardiovascular Rhythm: regular Heart sounds: normal: S1, S2 Abnormal Heart Sounds: systolic murmur, no S3 Gallop, no S4 Gallop - Gastrointestinal General gastrointestinal: normal bowel sounds, soft, no splenomegaly, no tend erness, no umbilical hernia, ventral hernia - Integumentary Integumentary: normal, normal turgor - Neurologic Neurologic: CNII-XII intact - Musculoskeletal Musculoskeletal: strength equal bilaterally - Psychiatric Psychiatric: A&O x's 3, appropriate affect, intact judgment & insight. Patient is able to answer questions and follow commands. - Labs CBC & Chem 7: 06/24/19 06:40 06/24/19 06:40 Labs: Abnormal Lab Results - Last 24 Hours (Table) 06/24/19 06/24/19 Range/Units 06:40 06:40 RBC 3.68 L (4.30-5.90) m/uL Hgb 12.0 L (13.0-17.5) gm/dL Hct 35.3 L (39.0-53.0) % Chloride 113 H (98-107) mmol/L AST 87 H (17-59) U/L ALT 17 L (21-72) U/L Total Protein 5.5 L (6.3-8.2) g/dL Albumin 3.1 L (3.5-5.0) g/dL Microbiology - Last 24 Hours (Table) 06/22/19 23:59 Blood Culture - Preliminary Blood No Growth after 24 hours 06/23/19 01:25 Urine Culture - Preliminary Urine,Voided Assessment and Plan Plan: 1. Metabolic encephalopathy due to possible UTI and sepsis along with Parkinson disease. Continue IV fluid in the form of normal saline 75 mL an hour, Rocephin 1 g IV piggyback every 24 hours, urine culture and blood culture are pending, consult with neurology and infectious disease appreciated. 2. Parkinson disease. Continue patient on Sinemet 25/100 milligrams at bedtime along with the Sinemet CR 50/200 one tablet in the morning, continue pramipexole 0.125 mg orally twice every day, neurology consultation for further recommendations. 3. CAD post-PCI. Continue metoprolol 12.5 mg once every day, aspirin 81 mg onc e every day, Lipitor 20 mg orally once every day, nitro glycerin as needed, continue with Lasix and spironolactone. 4. Hypertension and hypertensive cardiovascular disease. Continue metoprolol 12.5 mg orally once every day. 5. Hyperlipidemia. Continue Lipitor 20 mg orally once every day. 6. Hypothyroidism. Continue patient on Synthroid 50 g orally once every day. 7. DVT prophylaxis. Heparin 5000 units subcutaneously every 8 hours. 8. GI prophylaxis. Protonix 40 mg orally once every day. 9. UTI with sepsis. Continue patient on Rocephin 1 g piggyback every 24 hours. Check urine culture and blood cultures. CODE STATUS: NO code. Discharge plan: To be determined. PT and OT on consult. Impression and plan of care have been directed as dictated by the signing physician. Ellie Mckeon nurse practitioner acting as scribe for signing physician.
[2019-06-24] MEDS: FLUCONAZOLE 100 MG TAB PO SCH (18:54)
[2019-06-24] MEDS: ATORVASTATIN 20 MG TAB PO SCH (20:56)
[2019-06-24] MEDS ORDERED: LEVOFLOXACIN 750 MG TAB PO SCH (21:00)
--- NOTE | 2019-06-24 22:04 | PN ---
PROGRESS NOTE DATE OF SERVICE: 06/24/2019 REASON FOR FOLLOWUP: Fever, possible UTI. INTERVAL HISTORY: The patient's fever is currently resolved. The patient seems to be a little bit more awake and alert. The patient denied any headache to me. No nausea, no vomiting. No abdominal pain or any diarrhea. PHYSICAL EXAMINATION: Blood pressure 104/62 with a pulse of 66, temperature 98.4. He is 96% on room air. General description is an elderly male lying in bed in no distress. RESPIRATORY SYSTEM: Unlabored breathing. Clear to auscultation anteriorly. HEART: S1, S2. Regular rate and rhythm. ABDOMEN: Soft. No tenderness. LABS: Hemoglobin is 12, WBC 9.6, BUN of 17, creatinine 1.09. Urine culture showing Barby albicans. Blood culture so far negative. DIAGNOSTIC IMPRESSION AND PLAN: Patient admitted to hospital with a fever and mental status changes with a concern for a urinary tract infection. Now urine is showing Barby albicans. We will add Diflucan and monitor his clinical course closely. Continue supportive care. MMODL / IJN: [id number] /
[2019-06-25] MEDS: SODIUM CHLORIDE 0.9% 1,000 ML IV SCH (01:02)
[2019-06-25] MEDS: LEVOTHYROXINE 50 MCG TAB PO SCH (05:52)
[2019-06-25] MEDS: IPRATROPIUM-ALBUTEROL 3 ML NEB INHALATION SCH ×4 (07:46→20:11)
[2019-06-25] MEDS: PANTOPRAZOLE 40 MG TABLET PO SCH (08:19)
[2019-06-25] MEDS: CARBIDOPA-LEVODOPA ER 50-200MG 1 EACH TABLET.ER PO SCH (08:19)
[2019-06-25] MEDS: ASPIRIN 81 MG PO SCH (08:19)
[2019-06-25] MEDS: SPIRONOLACTONE 25 MG TAB PO SCH (08:19)
[2019-06-25] MEDS: METOPROLOL TARTRATE 12.5 MG TAB PO SCH (08:19)
[2019-06-25] MEDS: FUROSEMIDE 40 MG TAB PO SCH (08:19)
[2019-06-25] MEDS: VITAMIN E (DL,TOCOPHERYL ACET) 400 UNIT CAP PO SCH (08:19)
[2019-06-25] MEDS: FLUCONAZOLE 100 MG TAB PO SCH (08:19)
[2019-06-25] MEDS: PRAMIPEXOLE 0.25 MG TAB PO SCH ×3 (08:19→16:40)
[2019-06-25] MEDS: CARBIDOPA-LEVODOPA 25-100 MG 1 EACH TAB PO SCH ×2 (08:20→16:40)
[2019-06-25 09:43] LABS: Calcium 8.2 mg/dL (8.4-10.2); Potassium 3.9 mmol/L (3.5-5.1); Total Bilirubin 0.5 mg/dL (0.2-1.3); Total Protein 5.4 g/dL (6.3-8.2)
--- NOTE | 2019-06-25 14:03 | P.PN ---
Subjective Progress Note Date: 06/25/19 This is an 83-year-old male one of Dr. Chavez with a previous medical history significant for Parkinson disease as an outpatient follows with Dr. Shea, history of CAD post-PCI and stent placement under the care of cardiology and regular basis, hypertension and hypertensive cardiovascular di sease, hypothyroidism, patient was recently seen by Dr. Shea as an outpatient his Parkinson medications were adjusted and these adjustment were done on 06/14/2019 and by 06/21/2019 patient developed to have a significant confusion and he became more physically disabled not able to move extremities trying to fall backward and the patient has been having more confusion and mental status changes so he was brought to the ER at [facility] yesterday for evaluation he was found to have a mild UTI without evidence of sepsis, patient was started on IV antibiotic in the form of Levaquin and subsequently was switched to IV Rocephin however the patient did pull his IV because of his confusion and delirium he was seen in consultation by neurology was thought that the patient has metabolic encephalopathy due to UTI with possible sepsis and probable Parkinson disease without any evidence of any seizure activity at this time, he was recommended for the patient to be treated medically and hold off any benzodiazepine at this point in time since it may increased risk of confusion and delirium. 06/24: Patient has been seen by Dr. Abdullahi with recommendations continue Rocephin. Urine culture and blood culture are in progress. He has been afebrile overnight. WBC count remains normal. If no improvement in mentation and an LP was recommended. Patient has had significant improvement overnight. He was able to eat almost all of his breakfast. Tremors have resolved slowly after 1 dose of IM Ativan 0.5 mg. The patient has been seen by Dr. Gavin for metabolic encephalopathy secondary to dehydration and UTI. He has recommended continuing patient same outpatient medications for his Parkinson's disease. No need for EEG and avoid benzodiazepines. Heart rate this morning is 108, blood pressure 126/74, pulse ox 97% on room air. 06/25: Patient has been afebrile since the afternoon of June 23. Heart rate 67, blood pressure 136/82, pulse ox 96% on 2 L nasal cannula. Urine culture has been finalized with Barby. Dr. Abdullahi has added in Diflucan. Patient is continued on ceftriaxone. Initial blood culture no growth at 48 hours. Repeat blood cultures obtained on June 23 are showing no growth after 24 hours. Patient is awake and alert. He states he is feeling fine. He denies any new complaints. He is eating well. PT and OT to see the patient today. Discussed discharge plan with patient and his . He is agreeable to go to subacute rehab at [facility] as he does have a granddaughter that works there. Case management has been updated. Patient will require insurance authorization authorization for subacute rehab and we will plan for discharge on Friday. Objective - Vital Signs Vital signs: Vital Signs Temp 98.1 F 06/25/19 07:00 Pulse 67 06/25/19 07:00 Resp 16 06/25/19 07:00 BP 136/82 06/25/19 07:00 Pulse Ox 96 06/25/19 07:00 Intake & Output 06/24/19 06/25/19 06/25/19 18:59 06:59 18:59 Intake Total 780 Output Total 200 600 Balance 580 -600 Intake: Oral 780 Output: Urine 200 600 Other: Voiding Method Diaper Urinal Diaper # Voids 1 - Exam Review of Systems Constitutional: No fever, no chills, no night sweats. No weight change. Reports weakness EENT: No headache. No nasal drainage or congestion. No epistaxis. No sore throat. Lungs: No shortness of breath, cough, no sputum production. No wheezing. Cardiovascular: No chest pain, no lower extremity edema. No palpitations. No paroxysmal nocturnal dyspnea. No orthopnea. No lightheadedness or dizziness. No syncopal episodes. Abdominal: No abdominal pain. No nausea, vomiting. No diarrhea. No constipation. No bloody or tarry stools. No loss of appetite. Genitourinary: No dysuria, increased frequency, urgency. No urinary retention. Musculoskeletal: No myalgias. Reports muscle weakness, no gait dysfunction, reports frequent falls. No back pain. No neck pain. Integumentary: No wounds, no lesions. No rash or pruritus. No unusual bruising. No change in hair or nails. Neurologic: No aphasia. No facial droop. No change in mentation. No head injury. No headache. No paralysis. No paresthesia. Psychiatric: No depression. No anxiety. No mood swings. Endocrine: No abnormal blood sugars. No weight change. No excessive sweating or thirst. No cold intolerance. - Constitutional General appearance: average body habitus, no acute distress, patient resting comfortably in bed. - EENT Eyes: anicteric sclerae, EOMI, PERRLA, no scleral icterus, normal appearance ENT: hearing grossly normal, NA/AT, normal oropharynx, no thrush Ears: bilateral: normal - Neck Neck: no lymphadenopathy, normal ROM, rigidity, no stridor, no thyromegaly Carotids: bilateral: upstroke normal Thyroid: bilateral: normal size - Respiratory Respiratory: bilateral: diminished, wheezing, prolonged expiration, negative: dullness, rales, rhonchi - Cardiovascular Rhythm: regular Heart sounds: normal: S1, S2 Abnormal Heart Sounds: systolic murmur, no S3 Gallop, no S4 Gallop - Gastrointestinal General gastrointestinal: normal bowel sounds, soft, no splenomegaly, no tenderness, no umbilical hernia, ventral hernia - Integumentary Integumentary: normal, normal turgor - Neurologic Neurologic: CNII-XII intact - Musculoskeletal Musculoskeletal: strength equal bilaterally - Psychiatric Psychiatric: A&O x's 3, appropriate affect, intact judgment & insight. Patient is able to answer questions and follow commands. - Labs CBC & Chem 7: 06/24/19 06:40 06/25/19 08:33 Labs: Microbiology - Last 24 Hours (Table) 06/22/19 23:59 Blood Culture - Preliminary Blood No Growth after 48 hours 06/23/19 15:29 Blood Culture - Preliminary Blood No Growth after 24 hours 06/23/19 15:26 Blood Culture - Preliminary Blood No Growth after 24 hours 06/23/19 01:25 Urine Culture - Final Urine,Voided Barby albicans Assessment and Plan Plan: 1. Metabolic encephalopathy due to Barby UTI and sepsis along with Parkinson disease. Discontinue IV fluid in the form of normal saline 75 mL an hour, Rocephin 1 g IV piggyback every 24 hours, Diflucan and admitted by Dr. Abdullahi. Consult with neurology and infectious disease appreciated. 2. Parkinson disease. Continue patient on Sinemet 25/100 milligrams at bedtime along with the Sinemet CR 50/200 one tablet in the morning, continue pramipexole 0.125 mg orally twice every day, neurology consultation appreciated. Home medications to remain unchanged. 3. CAD post-PCI. Continue metoprolol 12.5 mg once every day, aspirin 81 mg once every day, Lipitor 20 mg orally once every day, nitro glycerin as needed, continue with Lasix and spironolactone. 4. Hypertension and hypertensive cardiovascular disease. Continue metoprolol 12.5 mg orally once every day. 5. Hyperlipidemia. Continue Lipitor 20 mg orally once every day. 6. Hypothyroidism. Continue patient on Synthroid 50 g orally once every day. 7. DVT prophylaxis. Heparin 5000 units subcutaneously every 8 hours. 8. GI prophylaxis. Protonix 40 mg orally once every day. 9. Barby UTI with sepsis. Continue patient on Rocephin 1 g piggyback every 24 hours and Diflucan. CODE STATUS: NO code. Discharge plan: [facility] on Friday once insurance authorization is obtained. Impression and plan of care have been directed as dictated by the signing physician. Ellie Mckeon nurse practitioner acting as scribe for signing physician.
[2019-06-25] MEDS: HEPARIN SODIUM,PORCINE 5,000 UNIT/ML 1 ML VIAL SQ SCH ×2 (16:40→23:30)
--- NOTE | 2019-06-25 17:09 | PN ---
PROGRESS NOTE DATE OF SERVICE: 06/25/2019 REASON FOR FOLLOWUP: Urinary tract infection. INTERVAL HISTORY: The patient is currently afebrile. The patient is more awake and alert. The patient is breathing comfortably. Denies having any chest pain or any cough. No nausea, no vomiting. No abdominal pain or any diarrhea. PHYSICAL EXAMINATION: Blood pressure 142/87 with a pulse of 87, temperature 98.1. He is 94% on room air. General description is an elderly male up in the bed in no distress. RESPIRATORY SYSTEM: Unlabored breathing. Clear to auscultation anteriorly. HEART: S1, S2. Regular rate and rhythm. ABDOMEN: Soft. No tenderness. LABS: BUN of 14, creatinine 1.06. Urine with Barby albicans. Blood culture has been negative. DIAGNOSTIC IMPRESSION AND PLAN: Patient with a fever and mental status changes, likely secondary to urinary tract infection. Urine has been predominantly Barby albicans. Patient is currently covered with oral Diflucan and IV Rocephin. The Rocephin can be discontinued on discharge. To continue with oral Diflucan for about a week to finish his course of therapy. at the bedside. Questions were answered. MMODL / IJN: [id number] /
[2019-06-25] MEDS: ATORVASTATIN 20 MG TAB PO SCH (21:24)
[2019-06-25] MEDS: TRIAMCINOLONE 0.1% CREAM 80 GM TUBE TOPICAL SCH (21:24)
[2019-06-26] MEDS: LEVOTHYROXINE 50 MCG TAB PO SCH (05:17)
[2019-06-26] MEDS: IPRATROPIUM-ALBUTEROL 3 ML NEB INHALATION SCH ×4 (08:49→20:10)
[2019-06-26] MEDS: PRAMIPEXOLE 0.25 MG TAB PO SCH ×3 (09:28→16:49)
[2019-06-26] MEDS: FLUCONAZOLE 100 MG TAB PO SCH (09:28)
[2019-06-26] MEDS: SPIRONOLACTONE 25 MG TAB PO SCH (09:28)
[2019-06-26] MEDS: METOPROLOL TARTRATE 12.5 MG TAB PO SCH (09:28)
[2019-06-26] MEDS: CARBIDOPA-LEVODOPA ER 50-200MG 1 EACH TABLET.ER PO SCH (09:28)
[2019-06-26] MEDS: VITAMIN E (DL,TOCOPHERYL ACET) 400 UNIT CAP PO SCH (09:29)
[2019-06-26] MEDS: ASPIRIN 81 MG PO SCH (09:29)
[2019-06-26] MEDS: CARBIDOPA-LEVODOPA 25-100 MG 1 EACH TAB PO SCH ×2 (09:29→16:49)
[2019-06-26] MEDS: HEPARIN SODIUM,PORCINE 5,000 UNIT/ML 1 ML VIAL SQ SCH ×4 (09:29→23:51)
[2019-06-26] MEDS: FUROSEMIDE 40 MG TAB PO SCH (09:29)
[2019-06-26] MEDS: PANTOPRAZOLE 40 MG TABLET PO SCH (09:29)
[2019-06-26] MEDS: TRIAMCINOLONE 0.1% CREAM 80 GM TUBE TOPICAL SCH (09:31)
[2019-06-26] MEDS: MELATONIN 3 MG TABLET PO SCH (21:21)
[2019-06-26] MEDS: ATORVASTATIN 20 MG TAB PO SCH (21:21)
--- NOTE | 2019-06-26 21:46 | P.PN ---
Subjective Progress Note Date: 06/26/19 This is an 83-year-old male one of Dr. Chavez with a previous medical history significant for Parkinson disease as an outpatient follows with Dr. Shea, history of CAD post-PCI and stent placement under the care of cardiology and regular basis, hypertension and hypertensive cardiovascular di sease, hypothyroidism, patient was recently seen by Dr. Shea as an outpatient his Parkinson medications were adjusted and these adjustment were done on 06/14/2019 and by 06/21/2019 patient developed to have a significant confusion and he became more physically disabled not able to move extremities trying to fall backward and the patient has been having more confusion and mental status changes so he was brought to the ER at [facility] yesterday for evaluation he was found to have a mild UTI without evidence of sepsis, patient was started on IV antibiotic in the form of Levaquin and subsequently was switched to IV Rocephin however the patient did pull his IV because of his confusion and delirium he was seen in consultation by neurology was thought that the patient has metabolic encephalopathy due to UTI with possible sepsis and probable Parkinson disease without any evidence of any seizure activity at this time, he was recommended for the patient to be treated medically and hold off any benzodiazepine at this point in time since it may increased risk of confusion and delirium. 06/24: Patient has been seen by Dr. Abdullahi with recommendations continue Rocephin. Urine culture and blood culture are in progress. He has been afebrile overnight. WBC count remains normal. If no improvement in mentation and an LP was recommended. Patient has had significant improvement overnight. He was able to eat almost all of his breakfast. Tremors have resolved slowly after 1 dose of IM Ativan 0.5 mg. The patient has been seen by Dr. Gavin for metabolic encephalopathy secondary to dehydration and UTI. He has recommended continuing patient same outpatient medications for his Parkinson's disease. No need for EEG and avoid benzodiazepines. Heart rate this morning is 108, blood pressure 126/74, pulse ox 97% on room air. 06/25: Patient has been afebrile since the afternoon of June 23. Heart rate 67, blood pressure 136/82, pulse ox 96% on 2 L nasal cannula. Urine culture has been finalized with Barby. Dr. Abdullahi has added in Diflucan. Patient is continued on ceftriaxone. Initial blood culture no growth at 48 hours. Repeat blood cultures obtained on June 23 are showing no growth after 24 hours. Patient is awake and alert. He states he is feeling fine. He denies any new complaints. He is eating well. PT and OT to see the patient today. Discussed discharge plan with patient and his . He is agreeable to go to subacute rehab at [facility] as he does have a granddaughter that works there. Case management has been updated. Patient will require insurance authorization authorization for subacute rehab and we will plan for discharge on Friday. 06/26: Patient has some daytime sleepiness, patient is not sleeping well at night, ID is following, recommendation is for Diflucan post discharge, and would discontinue IV antibiotics prior to discharge patient has no shortness of breath, no aspirate the events new today at 100.0 no diarrhea blood pressure 121/73 Objective - Vital Signs Vital signs: Vital Signs Temp 99.3 F 06/26/19 07:00 Pulse 90 06/26/19 12:14 Resp 17 06/26/19 07:00 BP 127/80 06/26/19 07:00 Pulse Ox 91 L 06/26/19 07:00 Intake & Output 06/25/19 06/26/19 06/26/19 18:59 06:59 18:59 Intake Total 230 240 Output Total 1050 150 Balance -820 90 Intake: Oral 230 240 Output: Urine 1050 150 Other: Voiding Method Urinal Diaper # Voids 3 3 - Constitutional General appearance: Present: cooperative, no acute distress - EENT Eyes: Present: anicteric sclerae, EOMI, PERRLA, dentition normal ENT: Present: hearing grossly normal, NA/AT, normal oropharynx - Neck Neck: Present: normal ROM - Respiratory Respiratory: bilateral: CTA, negative: diminished - Gastrointestinal General gastrointestinal: Present: decreased bowel sounds, normal bowel sounds - Integumentary Integumentary: Present: normal, normal turgor - Neurologic Neurologic: Present: CNII-XII intact - Musculoskeletal Musculoskeletal: Present: generalized weakness, strength equal bilaterally - Psychiatric Psychiatric: Present: A&O x's 3, appropriate affect - Labs CBC & Chem 7: 06/24/19 06:40 06/25/19 08:33 Labs: Microbiology - Last 24 Hours (Table) 06/22/19 23:59 Blood Culture - Preliminary Blood No Growth after 72 hours 06/23/19 15:29 Blood Culture - Preliminary Blood No Growth after 48 hours 06/23/19 15:26 Blood Culture - Preliminary Blood No Growth after 48 hours Assessment and Plan Plan: 1. Metabolic encephalopathy due to Barby UTI and sepsis along with Parkinson disease. Discontinue IV fluid in the form of normal saline 75 mL an hour, Rocephin 1 g IV piggyback every 24 hours, Diflucan and admitted by Dr. Abdullahi. Consult with neurology and infectious disease appreciated. Monitor for fevers, 2. Parkinson disease. Continue patient on Sinemet 25/100 milligrams at bedtime along with the Sinemet CR 50/200 one tablet in the morning, continue pramipexole 0.125 mg orally twice every day, neurology consultation appreciated. Home medications to remain unchanged. 3. CAD post-PCI. Continue metoprolol 12.5 mg once every day, aspirin 81 mg once every day, Lipitor 20 mg orally once every day, nitro glycerin as needed, continue with Lasix and spironolactone. 4. Hypertension and hypertensive cardiovascular disease. Continue metoprolol 12.5 mg orally once every day. 5. Hyperlipidemia. Continue Lipitor 20 mg orally once every day. 6. Hypothyroidism. Continue patient on Synthroid 50 g orally once every day. 7. DVT prophylaxis. Heparin 5000 units subcutaneously every 8 hours. 8. GI prophylaxis. Protonix 40 mg orally once every day. 9. Barby UTI with sepsis. Continue patient on Rocephin 1 g piggyback every 24 hours and Diflucan. 10. Insomnia, on trazodone 100 mg at bedtime, add melatonin 6 mg CODE STATUS: NO code. Discharge plan: [facility] on Friday once insurance authorization is obtained.
[2019-06-27] MEDS: LEVOTHYROXINE 50 MCG TAB PO SCH (05:12)
[2019-06-27 07:50] LABS: Basophils % (A) 0 %; Eosinophils # (A) 0.2 k/uL (0-0.7); Eosinophils % (A) 3 %; HCT 37.3 % (39.0-53.0); HGB 12.6 gm/dL (13.0-17.5); Lymphocytes # (A) 0.9 k/uL (1.0-4.8); Lymphocytes % (A) 13 %; MCH 31.9 pg (25.0-35.0); MCHC 33.6 g/dL (31.0-37.0); MCV 94.9 fL (80.0-100.0); Mean Platelet Volume 7.1; Monocytes # (A) 0.4 k/uL (0-1.0); Monocytes % (A) 6 %; Neutrophils # (A) 4.9 k/uL (1.3-7.7); Neutrophils % (A) 75 %; Platelet Count 178 k/uL (150-450); RBC 3.94 m/uL (4.30-5.90); RDW 12.6 % (11.5-15.5); WBC 6.6 k/uL (3.8-10.6)
[2019-06-27 08:20] LABS: Albumin 3.2 g/dL (3.5-5.0); Calcium 8.7 mg/dL (8.4-10.2); Potassium 3.8 mmol/L (3.5-5.1); Total Bilirubin 0.5 mg/dL (0.2-1.3); Total Protein 5.6 g/dL (6.3-8.2)
[2019-06-27] MEDS: IPRATROPIUM-ALBUTEROL 3 ML NEB INHALATION SCH ×4 (09:14→20:22)
[2019-06-27 10:06] LABS: T4, Free (Free Thyroxine) 1.04 ng/dL (0.78-2.19)
[2019-06-27] MEDS: SPIRONOLACTONE 25 MG TAB PO SCH (10:23)
[2019-06-27] MEDS: PRAMIPEXOLE 0.25 MG TAB PO SCH ×3 (10:24→17:18)
[2019-06-27] MEDS: FUROSEMIDE 40 MG TAB PO SCH (10:24)
[2019-06-27] MEDS: HEPARIN SODIUM,PORCINE 5,000 UNIT/ML 1 ML VIAL SQ SCH ×3 (10:24→23:10)
[2019-06-27] MEDS: CARBIDOPA-LEVODOPA ER 50-200MG 1 EACH TABLET.ER PO SCH (10:24)
[2019-06-27] MEDS: ASPIRIN 81 MG PO SCH (10:24)
[2019-06-27] MEDS: VITAMIN E (DL,TOCOPHERYL ACET) 400 UNIT CAP PO SCH (10:24)
[2019-06-27] MEDS: METOPROLOL TARTRATE 12.5 MG TAB PO SCH (10:24)
[2019-06-27] MEDS: CARBIDOPA-LEVODOPA 25-100 MG 1 EACH TAB PO SCH ×2 (10:24→17:18)
[2019-06-27] MEDS: FLUCONAZOLE 100 MG TAB PO SCH (10:24)
[2019-06-27] MEDS: PANTOPRAZOLE 40 MG TABLET PO SCH (10:24)
[2019-06-27 13:58] VITALS: BMI 29.6
[2019-06-27 14:13] LABS: Appearance,Urine Cloudy (Clear); Bacteria,Urine Rare /hpf; Bilirubin,Urine Negative (Negative); Blood,Urine Trace (Negative); Color,Urine Light Yellow; Glucose,Urine (UA) Negative (Negative); Ketones,Urine Negative (Negative); Leukocyte Esterase,Urine Large (Negative); Mucus,Urine Rare /hpf; Nitrite,Urine Negative (Negative); Protein,Urine Negative (Negative); RBC,Urine 9 /hpf (0-5); Urobilinogen,Urine <2.0 mg/dL (<2.0)
[2019-06-27] MEDS: TRIAMCINOLONE 0.1% CREAM 80 GM TUBE TOPICAL SCH (17:19)
[2019-06-27] MEDS: MELATONIN 3 MG TABLET PO SCH (21:00)
[2019-06-27] MEDS: ATORVASTATIN 20 MG TAB PO SCH (21:00)
--- NOTE | 2019-06-27 23:39 | P.PN ---
Subjective Progress Note Date: 06/27/19 This is an 83-year-old male one of Dr. Chavez with a previous medical history significant for Parkinson disease as an outpatient follows with Dr. Shea, history of CAD post-PCI and stent placement under the care of cardiology and regular basis, hypertension and hypertensive cardiovascular di sease, hypothyroidism, patient was recently seen by Dr. Shea as an outpatient his Parkinson medications were adjusted and these adjustment were done on 06/14/2019 and by 06/21/2019 patient developed to have a significant confusion and he became more physically disabled not able to move extremities trying to fall backward and the patient has been having more confusion and mental status changes so he was brought to the ER at [facility] yesterday for evaluation he was found to have a mild UTI without evidence of sepsis, patient was started on IV antibiotic in the form of Levaquin and subsequently was switched to IV Rocephin however the patient did pull his IV because of his confusion and delirium he was seen in consultation by neurology was thought that the patient has metabolic encephalopathy due to UTI with possible sepsis and probable Parkinson disease without any evidence of any seizure activity at this time, he was recommended for the patient to be treated medically and hold off any benzodiazepine at this point in time since it may increased risk of confusion and delirium. 06/24: Patient has been seen by Dr. Abdullahi with recommendations continue Rocephin. Urine culture and blood culture are in progress. He has been afebrile overnight. WBC count remains normal. If no improvement in mentation and an LP was recommended. Patient has had significant improvement overnight. He was able to eat almost all of his breakfast. Tremors have resolved slowly after 1 dose of IM Ativan 0.5 mg. The patient has been seen by Dr. Gavin for metabolic encephalopathy secondary to dehydration and UTI. He has recommended continuing patient same outpatient medications for his Parkinson's disease. No need for EEG and avoid benzodiazepines. Heart rate this morning is 108, blood pressure 126/74, pulse ox 97% on room air. 06/25: Patient has been afebrile since the afternoon of June 23. Heart rate 67, blood pressure 136/82, pulse ox 96% on 2 L nasal cannula. Urine culture has been finalized with Barby. Dr. Abdullahi has added in Diflucan. Patient is continued on ceftriaxone. Initial blood culture no growth at 48 hours. Repeat blood cultures obtained on June 23 are showing no growth after 24 hours. Patient is awake and alert. He states he is feeling fine. He denies any new complaints. He is eating well. PT and OT to see the patient today. Discussed discharge plan with patient and his . He is agreeable to go to subacute rehab at [facility] as he does have a granddaughter that works there. Case management has been updated. Patient will require insurance authorization authorization for subacute rehab and we will plan for discharge on Friday. 06/26: Patient has some daytime sleepiness, patient is not sleeping well at night, ID is following, recommendation is for Diflucan post discharge, and would discontinue IV antibiotics prior to discharge patient has no shortness of breath, no aspirate the events new today at 100.0 no diarrhea blood pressure 121/73 06/27: patient seemed to be more hypersomnolent today by family, unknown whether patient is sleeping well at night time, melatonin given last night at 8 pm, patient is not on any benzos or narcotics, he has urinary frequency more so today, has no appeteite for lunch today, urianlysis requested, pt on rocephine still and fluo=conazole for barby uti. no new cough, no fever. later in the evening today bp noted to be lower in 90's, lasix decreased to 20 mg daily Review of Systems Constitutional: No fever, no chills, no night sweats. No weight change. Repor ts weakness EENT: No headache. No nasal drainage or congestion. No epistaxis. No sore throat. Lungs: No shortness of breath, cough, no sputum production. No wheezing. Cardiovascular: No chest pain, no lower extremity edema. No palpitations. No paroxysmal nocturnal dyspnea. No orthopnea. No lightheadedness or dizziness. No syncopal episodes. Abdominal: No abdominal pain. No nausea, vomiting. No diarrhea. No constipation. No bloody or tarry stools. No loss of appetite. Genitourinary: No dysuria, increased frequency, urgency. No urinary retention. Musculoskeletal: No myalgias. Reports muscle weakness, no gait dysfunction, reports frequent falls. No back pain. No neck pain. Integumentary: No wounds, no lesions. No rash or pruritus. No unusual bruising. No change in hair or nails. Neurologic: No aphasia. No facial droop. No change in mentation. No head injury. No headache. No paralysis. No paresthesia. Psychiatric: No depression. No anxiety. No mood swings. Endocrine: No abnormal blood sugars. No weight change. No excessive sweating or thirst. No cold intolerance. Objective - Vital Signs Vital signs: Vital Signs Temp 97.5 F L 06/27/19 15:00 Pulse 71 06/27/19 15:00 Resp 15 06/27/19 15:00 BP 90/60 06/27/19 15:00 Pulse Ox 91 L 06/27/19 15:00 Intake & Output 06/26/19 06/27/19 06/27/19 18:59 06:59 18:59 Intake Total 440 236 Output Total 600 Balance -600 440 236 Weight 88.451 kg Intake: Oral 440 236 Output: Urine 600 Other: # Voids 2 3 - Constitutional General appearance: Present: cooperative, no acute distress - EENT Eyes: Present: anicteric sclerae, EOMI, PERRLA, dentition normal, normal appearance ENT: Present: NA/AT, normal oropharynx - Neck Neck: Present: normal ROM - Respiratory Respiratory: bilateral: CTA, negative: diminished, dullness, rales - Cardiovascular Rhythm: regular Heart sounds: normal: S1, S2 Abnormal Heart Sounds: Absent: systolic murmur, diastolic murmur, rub, S3 Gallop, S4 Gallop, click, other - Gastrointestinal General gastrointestinal: Present: normal bowel sounds, soft - Integumentary Integumentary: Present: decreased turgor, normal - Neurologic Neurologic: Present: CNII-XII intact - Musculoskeletal Musculoskeletal: Present: gait normal, strength equal bilaterally - Psychiatric Psychiatric: Present: A&O x's 3, appropriate affect, intact judgment & insight - Labs CBC & Chem 7: 06/27/19 07:19 06/27/19 07:19 Labs: Abnormal Lab Results - Last 24 Hours (Table) 06/27/19 06/27/19 06/27/19 Range/Units 07: 07:19 Unknown RBC 3.94 L (4.30-5.90) m/uL Hgb 12.6 L (13.0-17.5) gm/dL Hct 37.3 L (39.0-53.0) % Lymphocytes # 0.9 L (1.0-4.8) k/uL Glucose 111 H (74-99) mg/dL Total Protein 5.6 L (6.3-8.2) g/dL Albumin 3.2 L (3.5-5.0) g/dL TSH 5.980 H (0.465-4.680) mIU/L Urine Blood Trace H (Negative) Ur Leukocyte Esterase Large H (Negative) Urine RBC 9 H (0-5) /hpf Urine WBC >182 H (0-5) /hpf Urine WBC Clumps Occasional H (None) /hpf Urine Bacteria Rare H (None) /hpf Urine Mucus Rare H (None) /hpf Microbiology - Last 24 Hours (Table) 06/22/19 23:59 Blood Culture - Preliminary Blood No Growth after 96 hours 06/23/19 15:29 Blood Culture - Preliminary Blood No Growth after 72 hours 06/23/19 15:26 Blood Culture - Preliminary Blood No Growth after 72 hours Assessment and Plan Plan: 1. Metabolic encephalopathy due to Barby UTI and sepsis along with Parkinson disease. Discontinue IV fluid in the form of normal saline 75 mL an hour, Rocephin 1 g IV piggyback every 24 hours, Diflucan and admitted by Dr. Abdullahi. Consult with neurology and infectious disease appreciated. Monitor for fevers,, has increase in u frequency on 06/27, will check for pvr, rpt ua c/s 2. Parkinson disease. Continue patient on Sinemet 25/100 milligrams at bedtime along with the Sinemet CR 50/200 one tablet in the morning, continue pramipexole 0.125 mg orally twice every day, neurology consultation appreciated. Home medications to remain unchanged. 3. CAD post-PCI. Continue metoprolol 12.5 mg once every day, aspirin 81 mg once every day, Lipitor 20 mg orally once every day, nitro glycerin as needed, continue with Lasix and spironolactone. 4. Hypertension and hypertensive cardiovascular disease. Continue metoprolol 12.5 mg orally once every day. 5. Hyperlipidemia. Continue Lipitor 20 mg orally once every day. 6. Hypothyroidism. Continue patient on Synthroid 50 g orally once every day. 7. DVT prophylaxis. Heparin 5000 units subcutaneously every 8 hours. 8. GI prophylaxis. Protonix 40 mg orally once every day. 9. Barby UTI with sepsis. Continue patient on Rocephin 1 g piggyback every 24 hours and Diflucan. 10. Insomnia, off trazodone 100 mg at bedtime, add melatonin 6 mg CODE STATUS: NO code. Discharge plan: [facility] on Friday once insurance authorization is obtained.
[2019-06-28] MEDS: LEVOTHYROXINE 50 MCG TAB PO SCH (05:25)
[2019-06-28] MEDS: SPIRONOLACTONE 25 MG TAB PO SCH (08:29)
[2019-06-28] MEDS: METOPROLOL TARTRATE 12.5 MG TAB PO SCH (08:29)
[2019-06-28] MEDS: VITAMIN E (DL,TOCOPHERYL ACET) 400 UNIT CAP PO SCH (08:29)
[2019-06-28] MEDS: CARBIDOPA-LEVODOPA ER 50-200MG 1 EACH TABLET.ER PO SCH (08:29)
[2019-06-28] MEDS: CARBIDOPA-LEVODOPA 25-100 MG 1 EACH TAB PO SCH ×2 (08:29→17:43)
[2019-06-28] MEDS: PRAMIPEXOLE 0.25 MG TAB PO SCH ×3 (08:30→17:43)
[2019-06-28] MEDS: FUROSEMIDE 20 MG TAB PO SCH (08:30)
[2019-06-28] MEDS: ASPIRIN 81 MG PO SCH (08:30)
[2019-06-28] MEDS: HEPARIN SODIUM,PORCINE 5,000 UNIT/ML 1 ML VIAL SQ SCH ×3 (08:30→23:36)
[2019-06-28] MEDS: FLUCONAZOLE 100 MG TAB PO SCH (08:30)
[2019-06-28] MEDS: PANTOPRAZOLE 40 MG TABLET PO SCH (08:30)
[2019-06-28 08:31] LABS: Basophils % (A) 0 %; Eosinophils # (A) 0.2 k/uL (0-0.7); Eosinophils % (A) 3 %; HCT 37.5 % (39.0-53.0); HGB 12.5 gm/dL (13.0-17.5); Lymphocytes # (A) 0.9 k/uL (1.0-4.8); Lymphocytes % (A) 14 %; MCHC 33.5 g/dL (31.0-37.0); MCV 95.6 fL (80.0-100.0); Mean Platelet Volume 7.6; Monocytes # (A) 0.5 k/uL (0-1.0); Monocytes % (A) 7 %; Neutrophils # (A) 5.1 k/uL (1.3-7.7); Neutrophils % (A) 74 %; Platelet Count 196 k/uL (150-450); RBC 3.92 m/uL (4.30-5.90); RDW 12.8 % (11.5-15.5); WBC 6.9 k/uL (3.8-10.6)
[2019-06-28 08:48] LABS: Albumin 3.4 g/dL (3.5-5.0); Calcium 8.9 mg/dL (8.4-10.2); Total Bilirubin 0.5 mg/dL (0.2-1.3)
[2019-06-28] MEDS: IPRATROPIUM-ALBUTEROL 3 ML NEB INHALATION SCH ×4 (09:13→19:51)
--- NOTE | 2019-06-28 11:06 | P.DS ---
Providers Date of admission: 06/23/19 15:30 Expected date of discharge: 06/29/19 Attending physician: Charis Manuel Consults: 06/23/19 11:25 Consult Physician Routine Consulting Provider: Haily Gavin Consult Reason/Comments: parkinson Do you want consulting provider notified?: Yes 06/23/19 15:31 Consult Physician Routine Consulting Provider: Jennie Abdullahi Consult Reason/Comments: sepsis, possible UTI Do you want consulting provider notified?: Yes Primary care physician: Sohail HoganScott [facility] Course: This is an 83-year-old male one of Dr. Chavez with a previous medical history significant for Parkinson disease as an outpatient follows with Dr. Shea, history of CAD post-PCI and stent placement under the care of cardiology and regular basis, hypertension and hypertensive cardiovascular disease, hypothyroidism, patient was recently seen by Dr. Shea as an outpatient his Parkinson medications were adjusted and these adjustment were done on 06/14/2019 and by 06/21/2019 patient developed to have a significant confusion and he became more physically disabled not able to move extremities trying to fall backward and the patient has been having more confusion and mental status changes so he was brought to the ER at [facility] yesterday for evaluation he was found to have a mild UTI without evidence of sepsis, patient was started on IV antibiotic in the form of Levaquin and subsequently was switched to IV Rocephin however the patient did pull his IV because of his confusion and delirium he was seen in consultation by neurology was thought that the patient has metabolic encephalopathy due to UTI with possible sepsis and probable Parkinson disease without any evidence of any seizure activity at this time, he was recommended for the patient to be treated medically and hold off any benzodiazepine at this point in time since it may increased risk of confusion and delirium. 06/24: Patient has been seen by Dr. Abdullahi with recommendations continue Rocephin. Urine culture and blood culture are in progress. He has been afebrile overnight. WBC count remains normal. If no improvement in mentation and an LP was recommended. Patient has had significant improvement overnight. He was able to eat almost all of his breakfast. Tremors have resolved slowly after 1 dose of IM Ativan 0.5 mg. The patient has been seen by Dr. Gavin for metabolic encephalopathy secondary to dehydration and UTI. He has recommended continuing patient same outpatient medications for his Parkinson's disease. No need for EEG and avoid benzodiazepines. Heart rate this morning is 108, blood pressure 126/74, pulse ox 97% on room air. 06/25: Patient has been afebrile since the afternoon of June 23. Heart rate 67, blood pressure 136/82, pulse ox 96% on 2 L nasal cannula. Urine culture has been finalized with Papa. Dr. Abdullahi has added in Diflucan. Patient is continued on ceftriaxone. Initial blood culture no growth at 48 hours. Repeat blood cultures obtained on June 23 are showing no growth after 24 hours. Patient is awake and alert. He states he is feeling fine. He denies any new complaints. He is eating well. PT and OT to see the patient today. Discussed discharge plan with patient and his . He is agreeable to go to subacute rehab at [facility] as he does have a granddaughter that works there. Case management has been updated. Patient will require insurance authorization authorization for subacute rehab and we will plan for discharge on Friday. 06/26: Patient has some daytime sleepiness, patient is not sleeping well at night, ID is following, recommendation is for Diflucan post discharge, and would discontinue IV antibiotics prior to discharge patient has no shortness of breath, no aspirate the events new today at 100.0 no diarrhea blood pressure 121/73 06/27: patient seemed to be more hypersomnolent today by family, unknown whether patient is sleeping well at night time, melatonin given last night at 8 pm, patient is not on any benzos or narcotics, he has urinary frequency more so today, has no appeteite for lunch today, urianlysis requested, pt on rocephine still and fluo=conazole for papa uti. no new cough, no fever. later in the evening today bp noted to be lower in 90's, lasix decreased to 20 mg daily 06/28: Patient is improving and it improved over the weekend. He has not had any diarrhea. He is complaining of his buttocks hurting most likely from sitting in a chair. Bladder scan revealed only minimal urine. Physical therapy has moved patient to chair. Patient's is upset that he wasn't ambulated but patient is a 2 person assist. He is scheduled for discharge to [facility]. A repeat urinalysis appears to be positive for UTI and we are waiting for culture report. Patient is on ceftriaxone and Diflucan. Anticipate discharge to [facility] tomorrow. 06/29: Repeat urine culture was finalized with skin fabi. Dr. Abdullahi is recommended short course of Ceftin and Diflucan. Patient has been afebrile, heart rate 78, blood pressure 148/79, pulse ox 95% on 2 L nasal cannula. Repeat CBC will with white count of 6.6, hemoglobin 12.9. Patient will be discharged to [facility] once all arrangements have been completed. Discharge diagnoses: 1. Metabolic encephalopathy due to Papa UTI and sepsis along with Parkinson disease. 2. Parkinson disease. 3. CAD post-PCI. 4. Hypertension and hypertensive cardiovascular disease. 5. Hyperlipidemia. 6. Hypothyroidism. 7. Insomnia, off trazodone 100 mg at bedtime, add melatonin 6 mg Discharge plan: [facility] on Friday once insurance authorization has been obtained. Impression and plan of care have been directed as dictated by the signing physician. Ellie Mckeon nurse practitioner acting as scribe for signing physician. Patient Condition at Discharge: Good Plan - Discharge Summary Discharge Rx Participant: No New Discharge Prescriptions: New Cefuroxime Axetil [Ceftin] 500 mg PO BID #10 tab Fluconazole [Diflucan] 100 mg PO DAILY #5 tab Ipratropium-Albuterol Nebulize [Duoneb 0.5 mg-3 mg/3 ml Soln] 3 ml INHALATION RT-QID PRN ampul.neb PRN Reason: Shortness Of Breath Or Wheezing Acetaminophen Tab [Tylenol] 650 mg PO Q6HR PRN tab PRN Reason: Mild Pain Or Fever > 100.5 Furosemide [Lasix] 20 mg PO DAILY tab Continue Vitamin E (Dl,Tocopheryl Acet) [Vitamin E] 400 unit PO DAILY Levothyroxine Sodium [Synthroid] 50 mcg PO DAILY Spironolactone 12.5 mg PO DAILY Nitroglycerin 0.4 mg SL Q5M PRN PRN Reason: Chest Pain Multivitamins, Thera [Multivitamin (formulary)] 1 tab PO DAILY Metoprolol Tartrate 12.5 mg PO DAILY Garlic 1 tab PO DAILY Aspirin 81 mg PO DAILY Ammonium Lactate Cream [Lac-Hydrin 12% Cream] 1 applic TOPICAL BID PRN PRN Reason: Rash Mometasone Furoate [Elocon 0.1% Soln] 1 applic TOPICAL DAILY Carbidopa-Levodopa 25-100 mg [Sinemet 25-100 mg] 1 tab PO BID #0 Changed Pramipexole [Mirapex] 0.25 mg PO BID #0 Discontinued Lansoprazole 30 mg PO DAILY Simvastatin 40 mg PO HS Furosemide [Lasix] 40 mg PO DAILY Carbidopa-Levodopa ER 50-200Mg [Sinemet CR 50-200 mg] 1 tab PO DAILY Discharge Medication List Ammonium Lactate Cream [Lac-Hydrin 12% Cream] 1 applic TOPICAL BID PRN 06/23/19 [History] Aspirin 81 mg PO DAILY 06/23/19 [History] Garlic 1 tab PO DAILY 06/23/19 [History] Levothyroxine Sodium [Synthroid] 50 mcg PO DAILY 06/23/19 [History] Metoprolol Tartrate 12.5 mg PO DAILY 06/23/19 [History] Mometasone Furoate [Elocon 0.1% Soln] 1 applic TOPICAL DAILY 06/23/19 [History] Multivitamins, Thera [Multivitamin (formulary)] 1 tab PO DAILY 06/23/19 [History] Nitroglycerin 0.4 mg SL Q5M PRN 06/23/19 [History] Spironolactone 12.5 mg PO DAILY 06/23/19 [History] Vitamin E (Dl,Tocopheryl Acet) [Vitamin E] 400 unit PO DAILY 06/23/19 [History] Acetaminophen Tab [Tylenol] 650 mg PO Q6HR PRN tab 06/29/19 [Rx] Carbidopa-Levodopa 25-100 mg [Sinemet 25-100 mg] 1 tab PO BID #0 06/29/19 [Rx] Cefuroxime Axetil [Ceftin] 500 mg PO BID #10 tab 06/29/19 [Rx] Fluconazole [Diflucan] 100 mg PO DAILY #5 tab 06/29/19 [Rx] Furosemide [Lasix] 20 mg PO DAILY tab 06/29/19 [Rx] Ipratropium-Albuterol Nebulize [Duoneb 0.5 mg-3 mg/3 ml Soln] 3 ml INHALATION RT-QID PRN ampul.neb 06/29/19 [Rx] Pramipexole [Mirapex] 0.25 mg PO BID #0 06/29/19 [Rx] Follow up Appointment(s)/Referral(s): Sohail Chavez DO [Primary Care Provider] - 1 Week (After discharge from [facility]) Zuhair Shea DO [STAFF PHYSICIAN] - 1 Week Discharge Disposition: TRANSFER TO SNF/ECF
[2019-06-28] MEDS: TRIAMCINOLONE 0.1% CREAM 80 GM TUBE TOPICAL SCH (12:29)
--- NOTE | 2019-06-28 16:26 | P.PN ---
Subjective Progress Note Date: 06/28/19 This is an 83-year-old male one of Dr. Chavez with a previous medical history significant for Parkinson disease as an outpatient follows with Dr. Shea, history of CAD post-PCI and stent placement under the care of cardiology and regular basis, hypertension and hypertensive cardiovascular di sease, hypothyroidism, patient was recently seen by Dr. Shea as an outpatient his Parkinson medications were adjusted and these adjustment were done on 06/14/2019 and by 06/21/2019 patient developed to have a significant confusion and he became more physically disabled not able to move extremities trying to fall backward and the patient has been having more confusion and mental status changes so he was brought to the ER at [facility] yesterday for evaluation he was found to have a mild UTI without evidence of sepsis, patient was started on IV antibiotic in the form of Levaquin and subsequently was switched to IV Rocephin however the patient did pull his IV because of his confusion and delirium he was seen in consultation by neurology was thought that the patient has metabolic encephalopathy due to UTI with possible sepsis and probable Parkinson disease without any evidence of any seizure activity at this time, he was recommended for the patient to be treated medically and hold off any benzodiazepine at this point in time since it may increased risk of confusion and delirium. 06/24: Patient has been seen by Dr. Abdullahi with recommendations continue Rocephin. Urine culture and blood culture are in progress. He has been afebrile overnight. WBC count remains normal. If no improvement in mentation and an LP was recommended. Patient has had significant improvement overnight. He was able to eat almost all of his breakfast. Tremors have resolved slowly after 1 dose of IM Ativan 0.5 mg. The patient has been seen by Dr. Gavin for metabolic encephalopathy secondary to dehydration and UTI. He has recommended continuing patient same outpatient medications for his Parkinson's disease. No need for EEG and avoid benzodiazepines. Heart rate this morning is 108, blood pressure 126/74, pulse ox 97% on room air. 06/25: Patient has been afebrile since the afternoon of June 23. Heart rate 67, blood pressure 136/82, pulse ox 96% on 2 L nasal cannula. Urine culture has been finalized with Barby. Dr. Abdullahi has added in Diflucan. Patient is continued on ceftriaxone. Initial blood culture no growth at 48 hours. Repeat blood cultures obtained on June 23 are showing no growth after 24 hours. Patient is awake and alert. He states he is feeling fine. He denies any new complaints. He is eating well. PT and OT to see the patient today. Discussed discharge plan with patient and his . He is agreeable to go to subacute rehab at [facility] as he does have a granddaughter that works there. Case management has been updated. Patient will require insurance authorization authorization for subacute rehab and we will plan for discharge on Friday. 06/26: Patient has some daytime sleepiness, patient is not sleeping well at night, ID is following, recommendation is for Diflucan post discharge, and would discontinue IV antibiotics prior to discharge patient has no shortness of breath, no aspirate the events new today at 100.0 no diarrhea blood pressure 121/73 06/27: patient seemed to be more hypersomnolent today by family, unknown whether patient is sleeping well at night time, melatonin given last night at 8 pm, patient is not on any benzos or narcotics, he has urinary frequency more so today, has no appeteite for lunch today, urianlysis requested, pt on rocephine still and fluo=conazole for barby uti. no new cough, no fever. later in the evening today bp noted to be lower in 90's, lasix decreased to 20 mg daily 06/28: Patient is improving and it improved over the weekend. He has not had any diarrhea. He is complaining of his buttocks hurting most likely from sitting in a chair. Bladder scan revealed only minimal urine. Physical therapy has moved patient to chair. Patient's is upset that he wasn't ambulated but patient is a 2 person assist. He is scheduled for discharge to [facility]. A repeat urinalysis appears to be positive for UTI and we are waiting for culture report. Patient is on ceftriaxone and Diflucan. Anticipate discharge to [facility] tomorrow. Objective - Vital Signs Vital signs: Vital Signs Temp 97.4 F L 06/28/19 07:00 Pulse 78 06/28/19 12:03 Resp 16 06/28/19 07:00 BP 127/82 06/28/19 07:00 Pulse Ox 96 06/28/19 07:00 Intake & Output 08/25/19 08/26/19 08/26/19 18:59 06:59 18:59 Intake Total 236 350 100 Balance 236 350 100 Weight 88.451 kg Intake: Oral 236 350 100 Other: # Voids 3 2 - Exam Review of Systems Constitutional: No fever, no chills, no night sweats. No weight change. Reports generalized weakness EENT: No headache. No nasal drainage or congestion. No epistaxis. No sore throat. Lungs: No shortness of breath, cough, no sputum production. No wheezing. Cardiovascular: No chest pain, no lower extremity edema. No palpitations. No paroxysmal nocturnal dyspnea. No orthopnea. No lightheadedness or dizziness. No syncopal episodes. Abdominal: No abdominal pain. No nausea, vomiting. No diarrhea. No constipation. No bloody or tarry stools. No loss of appetite. Genitourinary: No dysuria, increased frequency, urgency. No urinary retention. Musculoskeletal: No myalgias. Reports muscle weakness, no gait dysfunction, reports frequent falls. No back pain. No neck pain. Integumentary: No wounds, no lesions. No rash or pruritus. No unusual bruising. No change in hair or nails. Neurologic: No aphasia. No facial droop. No change in mentation. No head injury. No headache. No paralysis. No paresthesia. Psychiatric: No depression. No anxiety. No mood swings. Endocrine: No abnormal blood sugars. No weight change. No excessive sweating or thirst. No cold intolerance. - Constitutional General appearance: Present: cooperative, no acute distress while sitting in chair - EENT Eyes: Present: anicteric sclerae, EOMI, PERRLA, dentition normal, normal appearance ENT: Present: NA/AT, normal oropharynx - Neck Neck: Present: normal ROM - Respiratory Respiratory: bilateral: CTA, negative: diminished, dullness, rales - Cardiovascular Rhythm: regular Heart sounds: normal: S1, S2 Abnormal Heart Sounds: Absent: systolic murmur, diastolic murmur, rub, S3 Gallop, S4 Gallop, click, other - Gastrointestinal General gastrointestinal: Present: normal bowel sounds, soft - Integumentary Integumentary: Present: decreased turgor, normal - Neurologic Neurologic: Present: CNII-XII intact - Musculoskeletal Musculoskeletal: Present: gait normal, strength equal bilaterally - Psychiatric Psychiatric: Present: A&O x's 3, appropriate affect, intact judgment & insight - Labs CBC & Chem 7: 06/28/19 08:04 06/28/19 08:04 Labs: Abnormal Lab Results - Last 24 Hours (Table) 06/27/19 06/28/19 06/28/19 Range/Units Unknown 08:04 08:04 RBC 3.92 L (4.30-5.90) m/uL Hgb 12.5 L (13.0-17.5) gm/dL Hct 37.5 L (39.0-53.0) % Lymphocytes # 0.9 L (1.0-4.8) k/uL Carbon Dioxide 33 H (22-30) mmol/L BUN 24 H (9-20) mg/dL Glucose 108 H (74-99) mg/dL Total Protein 6.0 L (6.3-8.2) g/dL Albumin 3.4 L (3.5-5.0) g/dL Urine Blood Trace H (Negative) Ur Leukocyte Esterase Large H (Negative) Urine RBC 9 H (0-5) /hpf Urine WBC >182 H (0-5) /hpf Urine WBC Clumps Occasional H (None) /hpf Urine Bacteria Rare H (None) /hpf Urine Mucus Rare H (None) /hpf Microbiology - Last 24 Hours (Table) 06/22/19 23:59 Blood Culture - Preliminary Blood No Growth after 120 hours 06/27/19 Unknown Urine Culture - Preliminary Urine,Voided 06/23/19 15:29 Blood Culture - Preliminary Blood No Growth after 96 hours 06/23/19 15:26 Blood Culture - Preliminary Blood No Growth after 96 hours Assessment and Plan Plan: 1. Metabolic encephalopathy due to Barby UTI and sepsis along with Parkinson disease. Discontinue IV fluid in the form of normal saline 75 mL an hour, Roce phin 1 g IV piggyback every 24 hours, Diflucan and admitted by Dr. Abdullahi. Consult with neurology and infectious disease appreciated. Monitor for fevers,, has increase in u frequency on 06/27, will check for pvr, rpt ua c/s. Awaiting repeat urine culture report. 2. Parkinson disease. Continue patient on Sinemet 25/100 milligrams at bedtime along with the Sinemet CR 50/200 one tablet in the morning, continue pramipexole 0.125 mg orally twice every day, neurology consultation appreciated. Home medications to remain unchanged. 3. CAD post-PCI. Continue metoprolol 12.5 mg once every day, aspirin 81 mg once every day, Lipitor 20 mg orally once every day, nitro glycerin as needed, continue with Lasix and spironolactone. 4. Hypertension and hypertensive cardiovascular disease. Continue metoprolol 12.5 mg orally once every day. 5. Hyperlipidemia. Continue Lipitor 20 mg orally once every day. 6. Hypothyroidism. Continue patient on Synthroid 50 g orally once every day. 7. DVT prophylaxis. Heparin 5000 units subcutaneously every 8 hours. 8. GI prophylaxis. Protonix 40 mg orally once every day. 9. Barby UTI with sepsis. Continue patient on Rocephin 1 g piggyback every 24 hours and Diflucan. 10. Insomnia, off trazodone 100 mg at bedtime, add melatonin 6 mg CODE STATUS: NO code. Discharge plan: [facility] on Friday once insurance authorization is obtained. Impression and plan of care have been directed as dictated by the signing physician. Ellie Mckeon nurse practitioner acting as scribe for signing physician.
[2019-06-28] MEDS: MELATONIN 3 MG TABLET PO SCH (20:46)
[2019-06-28] MEDS: ATORVASTATIN 20 MG TAB PO SCH (20:46)
--- NOTE | 2019-06-28 22:59 | PN ---
PROGRESS NOTE DATE OF SERVICE: 06/28/2019 REASON FOR FOLLOWUP: Urinary tract infection. INTERVAL HISTORY: The patient is currently afebrile. The patient is more awake and alert today. He is breathing comfortably. No chest pain or palpitations. No cough. No nausea, vomiting, abdominal pain and no diarrhea. PHYSICAL EXAMINATION: Blood pressure is 105/55 with a pulse of 81, temperature of 98. He is 91% on room air. General description is an elderly male up in the chair in no distress. Respiratory system: Unlabored breathing. Clear to auscultation anteriorly. Heart S1, S2. Regular rate and rhythm. Abdomen soft. No tenderness. EXTREMITIES: No edema of the feet. LABS: Hemoglobin is 10.5, white count 6.9 with a BUN of 24, creatinine is 0.10. Repeat urine is so far negative. DIAGNOSTIC IMPRESSION AND PLAN: Patient admitted to the hospital with fever with mental status changes, concern for urinary tract infection with positive urinalysis. Initial cultures with Barby albicans. Still has a repeat UA that was positive. Currently on Rocephin and Diflucan. Plan to finish therapy with short course of oral Diflucan and Ceftin. Family at the bedside, questions answered. MMODL / IJN: [id number] /
[2019-06-29] MEDS: LEVOTHYROXINE 50 MCG TAB PO SCH (05:15)
[2019-06-29] MEDS: IPRATROPIUM-ALBUTEROL 3 ML NEB INHALATION SCH ×4 (07:47→20:41)
[2019-06-29 08:10] LABS: Basophils % (A) 1 %; Eosinophils # (A) 0.2 k/uL (0-0.7); Eosinophils % (A) 3 %; HCT 39.9 % (39.0-53.0); HGB 12.9 gm/dL (13.0-17.5); Lymphocytes # (A) 0.8 k/uL (1.0-4.8); Lymphocytes % (A) 12 %; MCH 30.9 pg (25.0-35.0); MCHC 32.3 g/dL (31.0-37.0); MCV 95.8 fL (80.0-100.0); Mean Platelet Volume 7.2; Monocytes # (A) 0.4 k/uL (0-1.0); Monocytes % (A) 7 %; Neutrophils # (A) 4.9 k/uL (1.3-7.7); Neutrophils % (A) 75 %; Platelet Count 205 k/uL (150-450); RBC 4.17 m/uL (4.30-5.90); RDW 12.8 % (11.5-15.5); WBC 6.6 k/uL (3.8-10.6)
[2019-06-29] MEDS: CARBIDOPA-LEVODOPA 25-100 MG 1 EACH TAB PO SCH ×2 (08:26→17:02)
[2019-06-29] MEDS: METOPROLOL TARTRATE 12.5 MG TAB PO SCH (08:26)
[2019-06-29] MEDS: PANTOPRAZOLE 40 MG TABLET PO SCH (08:26)
[2019-06-29] MEDS: FUROSEMIDE 20 MG TAB PO SCH (08:26)
[2019-06-29] MEDS: PRAMIPEXOLE 0.25 MG TAB PO SCH ×3 (08:26→17:02)
[2019-06-29] MEDS: SPIRONOLACTONE 25 MG TAB PO SCH (08:26)
[2019-06-29] MEDS: ASPIRIN 81 MG PO SCH (08:26)
[2019-06-29] MEDS: FLUCONAZOLE 100 MG TAB PO SCH (08:26)
[2019-06-29] MEDS: HEPARIN SODIUM,PORCINE 5,000 UNIT/ML 1 ML VIAL SQ SCH ×3 (08:26→23:58)
[2019-06-29] MEDS: TRIAMCINOLONE 0.1% CREAM 80 GM TUBE TOPICAL SCH (08:27)
[2019-06-29] MEDS: VITAMIN E (DL,TOCOPHERYL ACET) 400 UNIT CAP PO SCH (08:27)
[2019-06-29] MEDS: CARBIDOPA-LEVODOPA ER 50-200MG 1 EACH TABLET.ER PO SCH (08:27)
--- NOTE | 2019-06-29 16:29 | PN ---
PROGRESS NOTE DATE OF SERVICE: 06/29/2019. REASON FOR FOLLOWUP: Urinary tract infection. INTERVAL HISTORY: The patient is currently afebrile. The patient has been breathing comfortably. Denies having any chest pain or any cough. No abdominal or any diarrhea. PHYSICAL EXAMINATION: Blood pressure is 148/79 with a pulse of 71, temperature 98.4. He is 95% on 2 L nasal cannula. General description is an elderly male lying in bed in no distress. Respiratory system: Unlabored breathing. Clear to auscultation anteriorly. Heart S1, S2. Regular rate and rhythm. ABDOMEN: Soft, no tenderness. LABS: Hemoglobin is 12.8, white count 6.6, BUN of 24, creatinine is 1.10. DIAGNOSTIC IMPRESSION AND PLAN: Patient admitted to the hospital with a fever with mental status changes likely concern for urinary tract infection. Cultures have been negative. Repeat cultures have been negative so far. Currently on Rocephin and Diflucan, plan to finish course of oral Ceftin and Diflucan and monitor clinical course closely. Family at the bedside. Questions were answered. MMODL / IJN: [id number] /
[2019-06-29 19:22] LABS: Glucose,Whole Blood 167 mg/dL (75-99)
[2019-06-29] MEDS ORDERED: LORazepam 2 MG/ML INJ IV PRN (19:32)
[2019-06-29 21:12] LABS: Basophils % (A) 0 %; Eosinophils # (A) 0.1 k/uL (0-0.7); Eosinophils % (A) 2 %; HGB 12.6 gm/dL (13.0-17.5); Lymphocytes # (A) 0.8 k/uL (1.0-4.8); Lymphocytes % (A) 12 %; MCH 31.1 pg (25.0-35.0); MCHC 32.4 g/dL (31.0-37.0); Monocytes # (A) 0.4 k/uL (0-1.0); Monocytes % (A) 7 %; Neutrophils % (A) 77 %; Platelet Count 199 k/uL (150-450); RBC 4.06 m/uL (4.30-5.90); RDW 14.2 % (11.5-15.5); WBC 6.5 k/uL (3.8-10.6)
[2019-06-29 21:20] LABS: Calcium 8.8 mg/dL (8.4-10.2); Potassium 4.2 mmol/L (3.5-5.1)
[2019-06-29] MEDS: ATORVASTATIN 20 MG TAB PO SCH (21:47)
[2019-06-30] MEDS: MELATONIN 3 MG TABLET PO SCH ×2 (00:47→21:31)
[2019-06-30] MEDS: CARBIDOPA-LEVODOPA 25-100 MG 1 EACH TAB PO SCH ×2 (07:41→18:23)
[2019-06-30] MEDS: PRAMIPEXOLE 0.25 MG TAB PO SCH ×3 (07:41→18:23)
[2019-06-30] MEDS: HEPARIN SODIUM,PORCINE 5,000 UNIT/ML 1 ML VIAL SQ SCH ×3 (07:41→23:19)
[2019-06-30] MEDS: PANTOPRAZOLE 40 MG TABLET PO SCH (07:41)
[2019-06-30] MEDS: CARBIDOPA-LEVODOPA ER 50-200MG 1 EACH TABLET.ER PO SCH (07:41)
[2019-06-30] MEDS: VITAMIN E (DL,TOCOPHERYL ACET) 400 UNIT CAP PO SCH (07:42)
[2019-06-30] MEDS: LEVOTHYROXINE 50 MCG TAB PO SCH (07:42)
[2019-06-30] MEDS: IPRATROPIUM-ALBUTEROL 3 ML NEB INHALATION SCH ×5 (08:42→20:46)
[2019-06-30] MEDS: SPIRONOLACTONE 25 MG TAB PO SCH (09:51)
[2019-06-30] MEDS: FLUCONAZOLE 100 MG TAB PO SCH (09:51)
[2019-06-30] MEDS: METOPROLOL TARTRATE 12.5 MG TAB PO SCH (09:51)
[2019-06-30] MEDS: ASPIRIN 81 MG PO SCH (09:52)
[2019-06-30] MEDS: TRIAMCINOLONE 0.1% CREAM 80 GM TUBE TOPICAL SCH (09:52)
[2019-06-30] MEDS: FUROSEMIDE 20 MG TAB PO SCH (09:52)
--- NOTE | 2019-06-30 10:14 | P.PN ---
Subjective Progress Note Date: 06/29/19 This is an 83-year-old male one of Dr. Chavez with a previous medical history significant for Parkinson disease as an outpatient follows with Dr. Shea, history of CAD post-PCI and stent placement under the care of cardiology and regular basis, hypertension and hypertensive cardiovascular di sease, hypothyroidism, patient was recently seen by Dr. Shea as an outpatient his Parkinson medications were adjusted and these adjustment were done on 06/14/2019 and by 06/21/2019 patient developed to have a significant confusion and he became more physically disabled not able to move extremities trying to fall backward and the patient has been having more confusion and mental status changes so he was brought to the ER at [facility] yesterday for evaluation he was found to have a mild UTI without evidence of sepsis, patient was started on IV antibiotic in the form of Levaquin and subsequently was switched to IV Rocephin however the patient did pull his IV because of his confusion and delirium he was seen in consultation by neurology was thought that the patient has metabolic encephalopathy due to UTI with possible sepsis and probable Parkinson disease without any evidence of any seizure activity at this time, he was recommended for the patient to be treated medically and hold off any benzodiazepine at this point in time since it may increased risk of confusion and delirium. 06/24: Patient has been seen by Dr. Abdullahi with recommendations continue Rocephin. Urine culture and blood culture are in progress. He has been afebrile overnight. WBC count remains normal. If no improvement in mentation and an LP was recommended. Patient has had significant improvement overnight. He was able to eat almost all of his breakfast. Tremors have resolved slowly after 1 dose of IM Ativan 0.5 mg. The patient has been seen by Dr. Gavin for metabolic encephalopathy secondary to dehydration and UTI. He has recommended continuing patient same outpatient medications for his Parkinson's disease. No need for EEG and avoid benzodiazepines. Heart rate this morning is 108, blood pressure 126/74, pulse ox 97% on room air. 06/25: Patient has been afebrile since the afternoon of June 23. Heart rate 67, blood pressure 136/82, pulse ox 96% on 2 L nasal cannula. Urine culture has been finalized with [facility]. Dr. Abdullahi has added in Diflucan. Patient is continued on ceftriaxone. Initial blood culture no growth at 48 hours. Repeat blood cultures obtained on June 23 are showing no growth after 24 hours. Patient is awake and alert. He states he is feeling fine. He denies any new complaints. He is eating well. PT and OT to see the patient today. Discussed discharge plan with patient and his . He is agreeable to go to subacute rehab at [facility] as he does have a granddaughter that works there. Case management has been updated. Patient will require insurance authorization authorization for subacute rehab and we will plan for discharge on Friday. 06/26: Patient has some daytime sleepiness, patient is not sleeping well at night, ID is following, recommendation is for Diflucan post discharge, and would discontinue IV antibiotics prior to discharge patient has no shortness of breath, no aspirate the events new today at 100.0 no diarrhea blood pressure 121/73 06/27: patient seemed to be more hypersomnolent today by family, unknown whether patient is sleeping well at night time, melatonin given last night at 8 pm, patient is not on any benzos or narcotics, he has urinary frequency more so today, has no appeteite for lunch today, urianlysis requested, pt on rocephine still and fluo=conazole for barby uti. no new cough, no fever. later in the evening today bp noted to be lower in 90's, lasix decreased to 20 mg daily 06/28: Patient is improving and it improved over the weekend. He has not had any diarrhea. He is complaining of his buttocks hurting most likely from sitting in a chair. Bladder scan revealed only minimal urine. Physical therapy has moved patient to chair. Patient's is upset that he wasn't ambulated but patient is a 2 person assist. He is scheduled for discharge to [facility]. A repeat urinalysis appears to be positive for UTI and we are waiting for culture report. Patient is on ceftriaxone and Diflucan. Anticipate discharge to [facility] tomorrow. 06/29: Repeat urine culture was finalized with skin fabi. Dr. Abdullahi is recommended short course of Ceftin and Diflucan. Patient has been afebrile, heart rate 78, blood pressure 148/79, pulse ox 95% on 2 L nasal cannula. Repeat CBC will with white count of 6.6, hemoglobin 12.9. Patient will be discharged to [facility] once all arrangements have been completed. We are waiting for insurance authorization. Objective - Vital Signs Vital signs: Vital Signs Temp 97.5 F L 06/30/19 07:00 Pulse 72 06/30/19 08:54 Resp 16 06/30/19 07:00 BP 121/82 06/30/19 07:00 Pulse Ox 95 06/30/19 07:00 Intake & Output 06/29/19 06/30/19 06/30/19 18:59 06:59 18:59 Intake Total 360 Output Total 725 Balance 360 -725 Intake: Oral 360 Output: Urine 725 Other: Voiding Method Urinal # Voids 2 - Exam Review of Systems Constitutional: No fever, no chills, no night sweats. No weight change. Reports generalized weakness EENT: No headache. No nasal drainage or congestion. No epistaxis. No sore throat. Lungs: No shortness of breath, cough, no sputum production. No wheezing. Cardiovascular: No chest pain, no lower extremity edema. No palpitations. No paroxysmal nocturnal dyspnea. No orthopnea. No lightheadedness or dizziness. No syncopal episodes. Abdominal: No abdominal pain. No nausea, vomiting. No diarrhea. No constipation. No bloody or tarry stools. No loss of appetite. Genitourinary: No dysuria, increased frequency, urgency. No urinary retention. Musculoskeletal: No myalgias. Reports muscle weakness, no gait dysfunction, reports frequent falls. No back pain. No neck pain. Integumentary: No wounds, no lesions. No rash or pruritus. No unusual bruising. No change in hair or nails. Neurologic: No aphasia. No facial droop. No change in mentation. No head injury. No headache. No paralysis. No paresthesia. Psychiatric: No depression. No anxiety. No mood swings. Endocrine: No abnormal blood sugars. No weight change. No excessive sweating or thirst. - Constitutional General appearance: Present: cooperative, no acute distress while sitting in chair, multiple family members at bedside - EENT Eyes: Present: anicteric sclerae, EOMI, PERRLA, dentition normal, normal appearance ENT: Present: NA/AT, normal oropharynx - Neck Neck: Present: normal ROM - Respiratory Respiratory: bilateral: CTA, negative: diminished, dullness, rales - Cardiovascular Rhythm: regular Heart sounds: normal: S1, S2 Abnormal Heart Sounds: Absent: systolic murmur, diastolic murmur, rub, S3 Gallop, S4 Gallop, click, other - Gastrointestinal General gastrointestinal: Present: normal bowel sounds, soft - Integumentary Integumentary: Present: decreased turgor, normal - Neurologic Neurologic: Present: CNII-XII intact - Musculoskeletal Musculoskeletal: Present: gait normal, strength equal bilaterally - Psychiatric Psychiatric: Present: A&O x's 3, appropriate affect, intact judgment & insight - Labs CBC & Chem 7: 06/29/19 20:18 06/29/19 20:18 Labs: Abnormal Lab Results - Last 24 Hours (Table) 06/28/19 06/29/19 06/29/19 Range/Units 08:04 19:18 20:18 RBC (4.30-5.90) m/uL Hgb (13.0-17.5) gm/dL Lymphocytes # (1.0-4.8) k/uL BUN (9-20) mg/dL Glucose (74-99) mg/dL POC Glucose (mg/dL) 167 H (75-99) mg/dL Total PSA 4.8 H (<=4.0) ng/mL Prolactin 1.5 L (2.1-17.7) ng/mL 06/29/19 06/29/19 Range/Units 20:18 20:18 RBC 4.06 L (4.30-5.90) m/uL Hgb 12.6 L (13.0-17.5) gm/dL Lymphocytes # 0.8 L (1.0-4.8) k/uL BUN 27 H (9-20) mg/dL Glucose 160 H (74-99) mg/dL POC Glucose (mg/dL) (75-99) mg/dL Total PSA (<=4.0) ng/mL Prolactin (2.1-17.7) ng/mL Microbiology - Last 24 Hours (Table) 06/23/19 15:26 Blood Culture - Final Blood No Growth after 144 hours 06/23/19 15:29 Blood Culture - Final Blood No Growth after 144 hours Assessment and Plan Plan: 1. Metabolic encephalopathy due to Barby UTI and sepsis along with Parkinson disease. Discontinue IV fluid in the form of normal saline 75 mL an hour, Rocephin 1 g IV piggyback every 24 hours, Diflucan and admitted by Dr. Abdullahi. Consult with neurology and infectious disease appreciated. A repeat urine culture finalized with skin fabi. Dr. Abdullahi is recommended Ceftin and Diflucan.. 2. Parkinson disease. Continue patient on Sinemet 25/100 milligrams at bedtime along with the Sinemet CR 50/200 one tablet in the morning, continue pramipexole 0.125 mg orally twice every day, neurology consultation appreciated. Home medications to remain unchanged. 3. CAD post-PCI. Continue metoprolol 12.5 mg once every day, aspirin 81 mg once every day, Lipitor 20 mg orally once every day, nitro glycerin as needed, continue with Lasix and spironolactone. 4. Hypertension and hypertensive cardiovascular disease. Continue metoprolol 12.5 mg orally once every day. 5. Hyperlipidemia. Continue Lipitor 20 mg orally once every day. 6. Hypothyroidism. Continue patient on Synthroid 50 g orally once every day. 7. DVT prophylaxis. Heparin 5000 units subcutaneously every 8 hours. 8. GI prophylaxis. Protonix 40 mg orally once every day. 9. Barby UTI with sepsis. Continue patient on Rocephin 1 g piggyback every 24 hours and Diflucan. 10. Insomnia, off trazodone 100 mg at bedtime, add melatonin 6 mg CODE STATUS: NO code. Discharge plan: [facility] on Friday once insurance authorization is obtained. Impression and plan of care have been directed as dictated by the signing physician. Ellie Mckeon nurse practitioner acting as scribe for signing physician.
--- NOTE | 2019-06-30 12:44 | P.PN ---
Subjective Progress Note Date: 06/30/19 Principal diagnosis: AMS/metabolic encephalopathy Episode of tremor and staring x 15 seconds Last saw patient several days ago for metabolic encephalopathy that improved with medical management. Yesterday RN called around 945pm reporting that the family had stated to her patient had a "seizure." Family today describes a 15- second episode of lateral extension of both arms, shaking and staring into space for 15 seconds. RN immediately went into patient's room and found no evidence of post-ictal confusion, foaming in mouth, tongue/cheek biting or bowel/bladder incontinence. MRI Brain and EEG ordered by primary team. Objective - Vital Signs Vital signs: Vital Signs Temp 97.5 F L 06/30/19 07:00 Pulse 72 06/30/19 08:54 Resp 16 06/30/19 07:00 BP 121/82 06/30/19 07:00 Pulse Ox 95 06/30/19 07:00 Intake & Output 06/29/19 06/30/19 06/30/19 18:59 06:59 18:59 Intake Total 360 100 Output Total 725 Balance 360 -725 100 Intake: Oral 360 100 Output: Urine 725 Other: Voiding Method Urinal # Voids 2 - Exam Gen NAD Pleasant and cooperative MS A+Ox3 Conversive and able to follow all commands CN II-XII grossly intact no nystagmus +hypophonia Motor Normal bulk Bilateral cogwheeling at wrist Bilateral resting tremor with bradykinesia DOWNS x4 Sens Intact to LT x4 Coord No dysmetria as he holds onto my hand with each of his DTRs 2+/4 sym throughout Gait Deferred - Labs CBC & Chem 7: 06/29/19 20:18 06/29/19 20:18 Labs: Abnormal Lab Results - Last 24 Hours (Table) 06/28/19 06/29/19 06/29/19 Range/Units 08:04 19:18 20:18 RBC (4.30-5.90) m/uL Hgb (13.0-17.5) gm/dL Lymphocytes # (1.0-4.8) k/uL BUN (9-20) mg/dL Glucose (74-99) mg/dL POC Glucose (mg/dL) 167 H (75-99) mg/dL Total PSA 4.8 H (<=4.0) ng/mL Prolactin 1.5 L (2.1-17.7) ng/mL 06/29/19 06/29/19 Range/Units 20:18 20:18 RBC 4.06 L (4.30-5.90) m/uL Hgb 12.6 L (13.0-17.5) gm/dL Lymphocytes # 0.8 L (1.0-4.8) k/uL BUN 27 H (9-20) mg/dL Glucose 160 H (74-99) mg/dL POC Glucose (mg/dL) (75-99) mg/dL Total PSA (<=4.0) ng/mL Prolactin (2.1-17.7) ng/mL Microbiology - Last 24 Hours (Table) 06/23/19 15:26 Blood Culture - Final Blood No Growth after 144 hours 06/23/19 15:29 Blood Culture - Final Blood No Growth after 144 hours Assessment and Plan Assessment: Episode of possible seizure- the semiology from family's description is not consistent with epileptic seizure Metabolic encephalopathy-improved with medical management Probable Parkinson's disease- stable Plan: -Will do our due diligence and obtain MRI brain and EEG without sedation. Quality of studies may be suboptimal given his tremor, but family and I both agree he is not to be sedated for these studies -I would not start him on an AED unless he has a clear witnessed episode by a medical professional that is consistent with epileptic seizure -Continue same PD meds and medical management -d/w patient and family at bedside in detail. All questions answered. Thank you again for this consultation. Please call with ?. Time with Patient: Greater than 30 (Time spent in direct patient care, greater than 50% of which was spent in [id number] counseling and coordination of care: 35 minutes)
[2019-06-30] MEDS: SENNOSIDES-DOCUSATE SODIUM 1 EACH TAB PO SCH (13:57)
--- NOTE | 2019-06-30 14:40 | EEG ---
ELECTROENCEPHALOGRAM REPORT DATE OF SERVICE: 06/30/2019 CLINICAL PROBLEM: Parkinson disease with tremor. Episode of body shaking and staring. EEG was requested to rule out epileptic activity. TYPE OF RECORDING: Bedside tracing using the 10-20 international electrode placement system. No sedation was given prior to the beginning of this recording. FINDINGS: The background of this tracing is seen with a polymorphic theta and delta slowing. No definitive sleep architecture is seen. Provocative maneuvers such as photic stimulation and hyperventilation are not performed. There is no background asymmetry, ictal or interictal patterns appreciated. IMPRESSION: This is an abnormal electroencephalogram with excessive background slowing that can be seen in cerebral dysfunction of any cause such as metabolic encephalopathy. No epileptiform discharges are seen. Clinical correlation is advised. MMGILMAR / IJN: [id number] / MTDD
--- NOTE | 2019-06-30 15:21 | MR ---
EXAMINATION TYPE: MR brain wo/w con DATE OF EXAM: 06/30/2019 COMPARISON: Prior MRI brain 2014. HISTORY: Seizures TECHNIQUE: Multiplanar, multisequence images of the brain and brainstem is performed without and with IV contras t, utilizing 9 mL intravenous Gadavist . FINDINGS: Exam noted suboptimal due to patient motion being unable to hold still. Diffusion weighted images demonstrate no evidence of a recent infarct or other diffusion abnormality. There is no worri some extra-axial fluid collection. There is diffuse ventricular and sulcal prominence. There are foca l and confluent areas of T2 hyperintensity seen throughout the deep and periventricular white matter. T2 coronal weighted images are significantly degraded by patient motion. Midline structures demonstrate normal morphology. The craniocervical junction appears within normal limits. Post contrast images demonstrate no abnormal enhancement. The dural venous sinuses appear pa tent. The visualized sinuses are clear and the globes are intact. IMPRESSION: Moderate diffuse cerebral atrophy and chronic small vessel ischemic changes with progress ion from 2014 study felt present. No suspicious enhancement or enhancing intraparenchymal masses note d.
--- NOTE | 2019-06-30 15:32 | P.PN ---
Progress Note - Text Progress Note Date: 06/30/19 MRI Brain and EEG results reviewed with patient and family. MRI Brain shows continued aging in the sense of progressive small vessel disease and global atrophy. There is no acute stroke. No tumor or other mass lesion. No other acute intracranial structural abnormalities. His EEG shows polymorphic theta and delta slowing consistent with a metabolic encephalopathy. My opinion is that his episode yesterday was a combination of his PD tremor and metabolic encephalopathy due to acute medical illness. I would not start him on long-term anticonvulsant therapy unless he has a clear witnessed episode of epileptic seizure by a medical professional. His neurological work-up is complete. No other inpatient neuro recs at this time. Please call back with any new ?.
--- NOTE | 2019-06-30 15:47 | P.PN ---
Subjective Progress Note Date: 06/30/19 This is an 83-year-old male one of Dr. Chavez with a previous medical history significant for Parkinson disease as an outpatient follows with Dr. Shea, history of CAD post-PCI and stent placement under the care of cardiology and regular basis, hypertension and hypertensive cardiovascular di sease, hypothyroidism, patient was recently seen by Dr. Shea as an outpatient his Parkinson medications were adjusted and these adjustment were done on 06/14/2019 and by 06/21/2019 patient developed to have a significant confusion and he became more physically disabled not able to move extremities trying to fall backward and the patient has been having more confusion and mental status changes so he was brought to the ER at [facility] yesterday for evaluation he was found to have a mild UTI without evidence of sepsis, patient was started on IV antibiotic in the form of Levaquin and subsequently was switched to IV Rocephin however the patient did pull his IV because of his confusion and delirium he was seen in consultation by neurology was thought that the patient has metabolic encephalopathy due to UTI with possible sepsis and probable Parkinson disease without any evidence of any seizure activity at this time, he was recommended for the patient to be treated medically and hold off any benzodiazepine at this point in time since it may increased risk of confusion and delirium. 06/24: Patient has been seen by Dr. Abdullahi with recommendations continue Rocephin. Urine culture and blood culture are in progress. He has been afebrile overnight. WBC count remains normal. If no improvement in mentation and an LP was recommended. Patient has had significant improvement overnight. He was able to eat almost all of his breakfast. Tremors have resolved slowly after 1 dose of IM Ativan 0.5 mg. The patient has been seen by Dr. Gavin for metabolic encephalopathy secondary to dehydration and UTI. He has recommended continuing patient same outpatient medications for his Parkinson's disease. No need for EEG and avoid benzodiazepines. Heart rate this morning is 108, blood pressure 126/74, pulse ox 97% on room air. 06/25: Patient has been afebrile since the afternoon of June 23. Heart rate 67, blood pressure 136/82, pulse ox 96% on 2 L nasal cannula. Urine culture has been finalized with Barby. Dr. Abdullahi has added in Diflucan. Patient is continued on ceftriaxone. Initial blood culture no growth at 48 hours. Repeat blood cultures obtained on June 23 are showing no growth after 24 hours. Patient is awake and alert. He states he is feeling fine. He denies any new complaints. He is eating well. PT and OT to see the patient today. Discussed discharge plan with patient and his . He is agreeable to go to subacute rehab at [facility] as he does have a granddaughter that works there. Case management has been updated. Patient will require insurance authorization authorization for subacute rehab and we will plan for discharge on Friday. 06/26: Patient has some daytime sleepiness, patient is not sleeping well at night, ID is following, recommendation is for Diflucan post discharge, and would discontinue IV antibiotics prior to discharge patient has no shortness of breath, no aspirate the events new today at 100.0 no diarrhea blood pressure 121/73 06/27: patient seemed to be more hypersomnolent today by family, unknown whether patient is sleeping well at night time, melatonin given last night at 8 pm, patient is not on any benzos or narcotics, he has urinary frequency more so today, has no appeteite for lunch today, urianlysis requested, pt on rocephine still and fluo=conazole for barby uti. no new cough, no fever. later in the evening today bp noted to be lower in 90's, lasix decreased to 20 mg daily 06/28: Patient is improving and it improved over the weekend. He has not had any diarrhea. He is complaining of his buttocks hurting most likely from sitting in a chair. Bladder scan revealed only minimal urine. Physical therapy has moved patient to chair. Patient's is upset that he wasn't ambulated but patient is a 2 person assist. He is scheduled for discharge to [facility]. A repeat urinalysis appears to be positive for UTI and we are waiting for culture report. Patient is on ceftriaxone and Diflucan. Anticipate discharge to [facility] tomorrow. 06/29: Repeat urine culture was finalized with skin fabi. Dr. Abdullahi is recommended short course of Ceftin and Diflucan. Patient has been afebrile, heart rate 78, blood pressure 148/79, pulse ox 95% on 2 L nasal cannula. Repeat CBC will with white count of 6.6, hemoglobin 12.9. Patient will be discharged to [facility] once all arrangements have been completed. We are waiting for insurance authorization. 06/29: According to patient's family, he had an episode where he started shaking which was a full body but different than his normal tremors. He was not awake but his eyes were open. The nurse was called in but did not see any seizure activity. Patient was resting in bed at the time. He did not just 8 and did not have any choking spells when he ate today. There was no tongue injury. He was not more drowsy than his baseline after the episode. He did not have any loss of bladder control. Patient's states that his cognition has been very good until this admission. We have asked Dr. Gavin to reevaluate. EEG was abnormal with excessive background slowing seen in cerebral dysfunction in case of metabolic encephalopathy. No epileptiform discharges. MRI of the brain also ordered. He does not recommend anti-seizure medications unless he has a clear witnessed episode by medical professional. He also recommends continuing same Parkinson's disease medications. Patient has been afebrile, heart rate 72, blood pressure 121/82, pulse ox 95% on 3 L. prolactin 1.5. Objective - Vital Signs Vital signs: Vital Signs Temp 97.5 F L 06/30/19 07:00 Pulse 72 06/30/19 08:54 Resp 16 06/30/19 07:00 BP 121/82 06/30/19 07:00 Pulse Ox 95 06/30/19 07:00 Intake & Output 06/29/19 06/30/19 06/30/19 18:59 06:59 18:59 Intake Total 360 100 Output Total 725 Balance 360 -725 100 Intake: Oral 360 100 Output: Urine 725 Other: Voiding Method Urinal # Voids 2 1 - Exam Review of Systems Constitutional: No fever, no chills, no night sweats. No weight change. Reports generalized weakness EENT: No headache. No nasal drainage or congestion. No epistaxis. No sore throat. Lungs: No shortness of breath, cough, no sputum production. No wheezing. Cardiovascular: No chest pain, no lower extremity edema. No palpitations. No paroxysmal nocturnal dyspnea. No orthopnea. No lightheadedness or dizziness. No syncopal episodes. Abdominal: No abdominal pain. No nausea, vomiting. No diarrhea. No constipation. No bloody or tarry stools. No loss of appetite. Genitourinary: No dysuria, increased frequency, urgency. No urinary retention. Musculoskeletal: No myalgias. Reports muscle weakness, no gait dysfunction, reports frequent falls. No back pain. No neck pain. Integumentary: No wounds, no lesions. No rash or pruritus. No unusual brui sing. No change in hair or nails. Neurologic: No aphasia. No facial droop. No change in mentation. No head injury. No headache. No paralysis. No paresthesia. Reports tremors Psychiatric: No depression. No anxiety. No mood swings. Endocrine: No abnormal blood sugars. No weight change. No excessive sweating or thirst. - Constitutional General appearance: Present: cooperative, no acute distress while sitting in bed, multiple family members at bedside - EENT Eyes: Present: anicteric sclerae, EOMI, PERRLA, dentition normal, normal appearance ENT: Present: NA/AT, normal oropharynx - Neck Neck: Present: normal ROM - Respiratory Respiratory: bilateral: CTA, negative: diminished, dullness, rales - Cardiovascular Rhythm: regular Heart sounds: normal: S1, S2 Abnormal Heart Sounds: Absent: systolic murmur, diastolic murmur, rub, S3 Gallop, S4 Gallop, click, other - Gastrointestinal General gastrointestinal: Present: normal bowel sounds, soft - Integumentary Integumentary: Present: decreased turgor, normal - Neurologic Neurologic: Present: CNII-XII intact - Musculoskeletal Musculoskeletal: Present: gait normal, strength equal bilaterally - Psychiatric Psychiatric: Present: A&O x's 3, appropriate affect, intact judgment & insight - Labs CBC & Chem 7: 06/29/19 20:18 06/29/19 20:18 Labs: Abnormal Lab Results - Last 24 Hours (Table) 06/29/19 06/29/19 06/29/19 Range/Units 19:18 20:18 20:18 RBC (4.30-5.90) m/uL Hgb (13.0-17.5) gm/dL Lymphocytes # (1.0-4.8) k/uL BUN 27 H (9-20) mg/dL Glucose 160 H (74-99) mg/dL POC Glucose (mg/dL) 167 H (75-99) mg/dL Prolactin 1.5 L (2.1-17.7) ng/mL 06/29/19 Range/Units 20:18 RBC 4.06 L (4.30-5.90) m/uL Hgb 12.6 L (13.0-17.5) gm/dL Lymphocytes # 0.8 L (1.0-4.8) k/uL BUN (9-20) mg/dL Glucose (74-99) mg/dL POC Glucose (mg/dL) (75-99) mg/dL Prolactin (2.1-17.7) ng/mL Microbiology - Last 24 Hours (Table) 06/23/19 15:26 Blood Culture - Final Blood No Growth after 144 hours 06/23/19 15:29 Blood Culture - Final Blood No Growth after 144 hours Assessment and Plan Plan: 1. Metabolic encephalopathy due to Barby UTI and sepsis along with Parkinson disease. Discontinue IV fluid in the form of normal saline 75 mL an hour, Rocephin 1 g IV piggyback every 24 hours, Diflucan and admitted by Dr. Abdullahi. Consult with neurology and infectious disease appreciated. A repeat urine culture finalized with skin fabi. Dr. Abdullahi is recommended Ceftin and Diflucan.. 2. Parkinson disease. Continue patient on Sinemet 25/100 milligrams at bedtime along with the Sinemet CR 50/200 one tablet in the morning, continue pramipexole 0.125 mg orally twice every day, neurology consultation appreciated. Home medications to remain unchanged. 3. CAD post-PCI. Continue metoprolol 12.5 mg once every day, aspirin 81 mg once every day, Lipitor 20 mg orally once every day, nitro glycerin as needed, continue with Lasix and spironolactone. 4. Hypertension and hypertensive cardiovascular disease. Continue metoprolol 12.5 mg orally once every day. 5. Hyperlipidemia. Continue Lipitor 20 mg orally once every day. 6. Hypothyroidism. Continue patient on Synthroid 50 g orally once every day. 7. DVT prophylaxis. Heparin 5000 units subcutaneously every 8 hours. 8. GI prophylaxis. Protonix 40 mg orally once every day. 9. Barby UTI with sepsis. Continue patient on Rocephin 1 g piggyback every 24 hours and Diflucan. 10. Insomnia, off trazodone 100 mg at bedtime, add melatonin 6 mg 11. Episode of possible seizure, rule out tremors. EEG consistent with metabolic encephalopathy. MRI ordered. No plan for sedation. Conscious consult with Dr. Gavin appreciated. No plan for anti-seizure medications. CODE STATUS: NO code. Discharge plan: [facility] on Friday once insurance authorization is obtained. Impression and plan of care have been directed as dictated by the signing physician. Ellie Mckeon nurse practitioner acting as scribe for signing physician.
[2019-06-30] MEDS: ATORVASTATIN 20 MG TAB PO SCH (21:31)
[2019-07-01] MEDS: PRAMIPEXOLE 0.25 MG TAB PO SCH ×3 (07:12→16:48)
[2019-07-01] MEDS: CARBIDOPA-LEVODOPA 25-100 MG 1 EACH TAB PO SCH ×2 (07:12→16:48)
[2019-07-01] MEDS: LEVOTHYROXINE 50 MCG TAB PO SCH (07:12)
[2019-07-01] MEDS: FLUCONAZOLE 100 MG TAB PO SCH (07:13)
[2019-07-01] MEDS: SPIRONOLACTONE 25 MG TAB PO SCH (07:13)
[2019-07-01] MEDS: ASPIRIN 81 MG PO SCH (07:13)
[2019-07-01] MEDS: SENNOSIDES-DOCUSATE SODIUM 1 EACH TAB PO SCH (07:14)
[2019-07-01] MEDS: FUROSEMIDE 20 MG TAB PO SCH (07:14)
[2019-07-01] MEDS: PANTOPRAZOLE 40 MG TABLET PO SCH (07:14)
[2019-07-01] MEDS: METOPROLOL TARTRATE 12.5 MG TAB PO SCH (07:14)
[2019-07-01] MEDS: CARBIDOPA-LEVODOPA ER 50-200MG 1 EACH TABLET.ER PO SCH (07:15)
[2019-07-01] MEDS: TRIAMCINOLONE 0.1% CREAM 80 GM TUBE TOPICAL SCH (07:15)
[2019-07-01] MEDS: VITAMIN E (DL,TOCOPHERYL ACET) 400 UNIT CAP PO SCH (07:15)
[2019-07-01] MEDS: HEPARIN SODIUM,PORCINE 5,000 UNIT/ML 1 ML VIAL SQ SCH ×2 (07:15→16:47)
--- NOTE | 2019-07-01 07:20 | PN ---
PROGRESS NOTE DATE OF SERVICE: 06/30/2019. REASON FOR FOLLOWUP: Urinary tract infection. INTERVAL HISTORY: The patient is currently afebrile. The patient has been breathing comfortably. Slightly weak and lethargic. No headache. No chest pain. No abdominal pain or any diarrhea. PHYSICAL EXAMINATION: On examination, blood pressure 101/66, pulse of 78, temperature 98.3. He is 96% on 3 L nasal cannula. General description is an elderly male lying in bed in no distress. RESPIRATORY SYSTEM: Unlabored breathing, clear to auscultation anteriorly. HEART: S1, S2. Regular rate and rhythm. ABDOMEN: Soft. No tenderness. EXTREMITIES: No edema of feet. LABS: Hemoglobin is 12.6, white count of 6.5, BUN of 27, creatinine 1.09. Repeat urine culture has been negative. DIAGNOSTIC IMPRESSION AND PLAN: Patient admitted to the hospital with mental status changes and concern for a urinary tract infection. Urine has Barby albicans. Recent of antibiotics should be more than enough. If he remains to be afebrile and white count normal and the culture remains to be negative, followup, to discontinue antibiotic on discharge. Family at the bedside. Their questions were answered. MMODL / IJN: [id number] /
[2019-07-01] MEDS: IPRATROPIUM-ALBUTEROL 3 ML NEB INHALATION SCH ×3 (08:03→15:36)
[2019-07-01 08:30] VITALS: RESP 16
--- NOTE | 2019-07-01 14:23 | PN ---
PROGRESS NOTE DATE OF SERVICE: 07/01/2019 REASON FOR FOLLOWUP: Urinary tract infection. INTERVAL HISTORY: The patient is currently afebrile. Patient is more awake, alert. He is breathing comfortably. No chest pain or any cough. No abdominal pain or any diarrhea reported. PHYSICAL EXAMINATION: Blood pressure is 123/85 with a pulse of 74m, temperature 98.6. He is 91% on 3 L nasal cannula. General description is an elderly male, lying in bed in no distress. RESPIRATORY SYSTEM: Unlabored breathing with decreased breath sounds in the bases, no wheeze. HEART: S1, S2. Regular rate and rhythm. ABDOMEN: Soft, no tenderness. LABS: Hemoglobin is 12.3, white count of 6.5. BUN of 27, creatinine is 1.09. Blood and urine cultures repeat have been negative so far. DIAGNOSTIC IMPRESSION AND PLAN: Patient with fever, source likely urinary in this patient did have urinary tract infection. Initial culture positive for Barby albicans underlying infection has been adequately treated as repeat urine culture has been negative. Currently, no need for further antibiotic therapy. Family was present at bedside. Their questions and concerns were answered. MMODL / IJN: [id number] /
[2019-07-01 14:45] VITALS: BP 110/73; TEMP 98.1
[2019-07-01 15:47] VITALS: PULSE 80
--- NOTE | 2019-07-01 16:22 | P.PN ---
Subjective Progress Note Date: 07/01/19 This is an 83-year-old male one of Dr. Chavez with a previous medical history significant for Parkinson disease as an outpatient follows with Dr. Shea, history of CAD post-PCI and stent placement under the care of cardiology and regular basis, hypertension and hypertensive cardiovascular di sease, hypothyroidism, patient was recently seen by Dr. Shea as an outpatient his Parkinson medications were adjusted and these adjustment were done on 06/14/2019 and by 06/21/2019 patient developed to have a significant confusion and he became more physically disabled not able to move extremities trying to fall backward and the patient has been having more confusion and mental status changes so he was brought to the ER at [facility] yesterday for evaluation he was found to have a mild UTI without evidence of sepsis, patient was started on IV antibiotic in the form of Levaquin and subsequently was switched to IV Rocephin however the patient did pull his IV because of his confusion and delirium he was seen in consultation by neurology was thought that the patient has metabolic encephalopathy due to UTI with possible sepsis and probable Parkinson disease without any evidence of any seizure activity at this time, he was recommended for the patient to be treated medically and hold off any benzodiazepine at this point in time since it may increased risk of confusion and delirium. 06/24: Patient has been seen by Dr. Abdullahi with recommendations continue Rocephin. Urine culture and blood culture are in progress. He has been afebrile overnight. WBC count remains normal. If no improvement in mentation and an LP was recommended. Patient has had significant improvement overnight. He was able to eat almost all of his breakfast. Tremors have resolved slowly after 1 dose of IM Ativan 0.5 mg. The patient has been seen by Dr. Gavin for metabolic encephalopathy secondary to dehydration and UTI. He has recommended continuing patient same outpatient medications for his Parkinson's disease. No need for EEG and avoid benzodiazepines. Heart rate this morning is 108, blood pressure 126/74, pulse ox 97% on room air. 06/25: Patient has been afebrile since the afternoon of June 23. Heart rate 67, blood pressure 136/82, pulse ox 96% on 2 L nasal cannula. Urine culture has been finalized with Barby. Dr. Abdullahi has added in Diflucan. Patient is continued on ceftriaxone. Initial blood culture no growth at 48 hours. Repeat blood cultures obtained on June 23 are showing no growth after 24 hours. Patient is awake and alert. He states he is feeling fine. He denies any new complaints. He is eating well. PT and OT to see the patient today. Discussed discharge plan with patient and his . He is agreeable to go to subacute rehab at [facility] as he does have a granddaughter that works there. Case management has been updated. Patient will require insurance authorization authorization for subacute rehab and we will plan for discharge on Friday. 06/26: Patient has some daytime sleepiness, patient is not sleeping well at night, ID is following, recommendation is for Diflucan post discharge, and would discontinue IV antibiotics prior to discharge patient has no shortness of breath, no aspirate the events new today at 100.0 no diarrhea blood pressure 121/73 06/27: patient seemed to be more hypersomnolent today by family, unknown whether patient is sleeping well at night time, melatonin given last night at 8 pm, patient is not on any benzos or narcotics, he has urinary frequency more so today, has no appeteite for lunch today, urianlysis requested, pt on rocephine still and fluo=conazole for barby uti. no new cough, no fever. later in the evening today bp noted to be lower in 90's, lasix decreased to 20 mg daily 06/28: Patient is improving and it improved over the weekend. He has not had any diarrhea. He is complaining of his buttocks hurting most likely from sitting in a chair. Bladder scan revealed only minimal urine. Physical therapy has moved patient to chair. Patient's is upset that he wasn't ambulated but patient is a 2 person assist. He is scheduled for discharge to [facility]. A repeat urinalysis appears to be positive for UTI and we are waiting for culture report. Patient is on ceftriaxone and Diflucan. Anticipate discharge to [facility] tomorrow. 06/29: Repeat urine culture was finalized with skin fabi. Dr. Abdullahi is recommended short course of Ceftin and Diflucan. Patient has been afebrile, heart rate 78, blood pressure 148/79, pulse ox 95% on 2 L nasal cannula. Repeat CBC will with white count of 6.6, hemoglobin 12.9. Patient will be discharged to [facility] once all arrangements have been completed. We are waiting for insurance authorization. 06/30: According to patient's family, he had an episode where he started shaking which was a full body but different than his normal tremors. He was not awake but his eyes were open. The nurse was called in but did not see any seizure activity. Patient was resting in bed at the time. He did not just 8 and did not have any choking spells when he ate today. There was no tongue injury. He was not more drowsy than his baseline after the episode. He did not have any loss of bladder control. Patient's states that his cognition has been very good until this admission. We have asked Dr. Gavin to reevaluate. EEG was abnormal with excessive background slowing seen in cerebral dysfunction in case of metabolic encephalopathy. No epileptiform discharges. MRI of the brain also ordered. He does not recommend anti-seizure medications unless he has a clear witnessed episode by medical professional. He also recommends continuing same Parkinson's disease medications. Patient has been afebrile, heart rate 72, blood pressure 121/82, pulse ox 95% on 3 L. prolactin 1.5. 07/01: EEG and MRI were reviewed with the patient by Dr. Gavin. No acute stroke. No tumor or mass lesion. No acute intracranial structural abnormalities. He feels that the shaking was a combination of his Parkinson's tremor and metabolic encephalopathy due to acute illness. No plan for anticonvulsant therapy. Patient remains afebrile, heart rate 76, blood pressure 101/66, pulse ox 96% on 3 L nasal cannula. Patient denies any new complaints. We are currently waiting for the insurance company authorization. Patient's daughter has contacted the insurance company as well and was told that it takes up to 14 days to obtain an authorization. Social work has sent updated therapy notes. We are hoping to obtain authorization 24 hours. Objective - Vital Signs Vital signs: Vital Signs Temp 98.8 F 07/01/19 01:41 Pulse 72 07/01/19 08:03 Resp 18 07/01/19 01:41 BP 121/74 07/01/19 01:41 Pulse Ox 90 L 07/01/19 01:41 Intake & Output 06/30/19 07/01/19 07/01/19 18:59 06:59 18:59 Intake Total 100 250 Output Total 275 450 Balance -175 -200 Intake: Oral 100 250 Output: Urine 275 450 Other: # Voids 1 2 - Exam Review of Systems Constitutional: No fever, no chills, no night sweats. No weight change. Reports generalized weakness EENT: No headache. No nasal drainage or congestion. No epistaxis. No sore throat. Lungs: No shortness of breath, cough, no sputum production. No wheezing. Cardiovascular: No chest pain, no lower extremity edema. No palpitations. No paroxysmal nocturnal dyspnea. No orthopnea. No lightheadedness or dizziness. No syncopal episodes. Abdominal: No abdominal pain. No nausea, vomiting. No diarrhea. No constipation. No bloody or tarry stools. No loss of appetite. Genitourinary: No dysuria, increased frequency, urgency. No urinary retention. Musculoskeletal: No myalgias. Reports muscle weakness, reports gait dysfunction, reports frequent falls. No back pain. No neck pain. Integumentary: No wounds, no lesions. No rash or pruritus. No unusual bruising. No change in hair or nails. Neurologic: No aphasia. No facial droop. No change in mentation. No head injury. No headache. No paralysis. No paresthesia. Reports tremors Psychiatric: No depression. No anxiety. No mood swings. Endocrine: No abnormal blood sugars. No weight change. No excessive sweating or thirst. - Constitutional General appearance: Present: cooperative, no acute distress while sitting in bed, daughter is at bedside - EENT Eyes: Present: anicteric sclerae, EOMI, PERRLA, dentition normal, normal appearance ENT: Present: NA/AT, normal oropharynx - Neck Neck: Present: normal ROM - Respiratory Respiratory: bilateral: CTA, negative: diminished, dullness, rales - Cardiovascular Rhythm: regular Heart sounds: normal: S1, S2 Abnormal Heart Sounds: Absent: systolic murmur, diastolic murmur, rub, S3 Gallop, S4 Gallop, click, other - Gastrointestinal General gastrointestinal: Present: normal bowel sounds, soft - Integumentary Integumentary: Present: decreased turgor, normal - Neurologic Neurologic: Present: CNII-XII intact - Musculoskeletal Musculoskeletal: Present: gait abnormal strength equal bilaterally - Psychiatric Psychiatric: Present: A&O x's 3, appropriate affect, intact judgment & insight - Labs CBC & Chem 7: 06/29/19 20:18 06/29/19 20:18 Assessment and Plan Plan: 1. Metabolic encephalopathy due to Barby UTI and sepsis along with Parkinson disease. Discontinue IV fluid in the form of normal saline 75 mL an hour, Rocephin 1 g IV piggyback every 24 hours, Diflucan and admitted by Dr. Abdullahi. Consult with neurology and infectious disease appreciated. A repeat urine cu lture finalized with skin fabi. Dr. Abdullahi is recommended Ceftin and Diflucan.. 2. Parkinson disease. Continue patient on Sinemet 25/100 milligrams at bedtime along with the Sinemet CR 50/200 one tablet in the morning, continue pramipexole 0.125 mg orally twice every day, neurology consultation appreciated. We have eliminated long acting Sinemet and decrease Mirapex to twice daily for the [facility] home and patient to follow-up with Dr. Shea for further reduction in medication that was requested by family. 3. CAD post-PCI. Continue metoprolol 12.5 mg once every day, aspirin 81 mg once every day, Lipitor 20 mg orally once every day, nitro glycerin as needed, continue with Lasix and spironolactone. 4. Hypertension and hypertensive cardiovascular disease. Continue metoprolol 12.5 mg orally once every day. 5. Hyperlipidemia. Continue Lipitor 20 mg orally once every day. 6. Hypothyroidism. Continue patient on Synthroid 50 g orally once every day. 7. DVT prophylaxis. Heparin 5000 units subcutaneously every 8 hours. 8. GI prophylaxis. Protonix 40 mg orally once every day. 9. Barby UTI with sepsis. Rocephin discontinued by Dr. Abdullahi. Continue Diflucan. 10. Insomnia, off trazodone 100 mg at bedtime, add melatonin 6 mg 11. Episode of severe shaking secondary to his underlying Parkinson's tremor and metabolic encephalopathy secondary to his acute illness. EEG and MRI as above. Consult with Dr. Gavin appreciated. No plan for anti-seizure medications. CODE STATUS: NO code. Discharge plan: [facility] once insurance authorization is obtained. Impression and plan of care have been directed as dictated by the signing physician. Ellie Mckeon nurse practitioner acting as scribe for signing physician.
--- NOTE | 2019-07-04 16:49 | P.PN ---
Progress Note - Text Progress Note Date: 06/27/19 REASON FOR FOLLOWUP: Urinary tract infection. INTERVAL HISTORY: The patient did have low-grade fever 100F last night however the patient remains to be afebrile Since then. The patient is awake and alert. The patient is breathing comfortably. The patient denies having any chest pain or any cough. No nausea, no vomiting. No abdominal pain or any diarrhea. PHYSICAL EXAMINATION: Blood pressure 92/55 with a pulse of 75, temperature 97.7. He is 94% on room air. General description is an elderly male up in the bed in no distress. RESPIRATORY SYSTEM: Unlabored breathing. Clear to auscultation anteriorly. HEART: S1, S2. Regular rate and rhythm. ABDOMEN: Soft. No tenderness. LABS: Reviewed . DIAGNOSTIC IMPRESSION AND PLAN: Patient with a fever and mental status changes, likely secondary to urinary tract infection. Urine has been predominantly Barby albicans. Patient is currently covered with oral Diflucan and IV Rocephin. In view of her new fever and repeat a UA and culture has been ordered to dose will be followed. Family at the bedside questions were answered
== END 2019-07-01 18:20 | DRG 871 ==
LOC: EC 22:35 → 4SSUR 06-23 02:58 → OBSVTOIN 06-23 15:30
PROVIDERS: ADMIT Internal Medicine; ATTEND Internal Medicine
DX: B37.7 Candidal sepsis (principal); G93.41 Metabolic encephalopathy; B37.49 Other urogenital candidiasis; E03.9 Hypothyroidism, unspecified; E78.5 Hyperlipidemia, unspecified; E86.0 Dehydration; G20 Parkinson's disease; G47.00 Insomnia, unspecified; G47.10 Hypersomnia, unspecified; I11.9 Hypertensive heart disease without heart failure; I25.10 Atherosclerotic heart disease of native coronary artery without angina pectoris; I73.9 Peripheral vascular disease, unspecified; J44.9 Chronic obstructive pulmonary disease, unspecified; Z79.82 Long term (current) use of aspirin; Z79.890 Hormone replacement therapy; Z79.899 Other long term (current) drug therapy; Z80.3 Family history of malignant neoplasm of breast; Z80.59 Family history of malignant neoplasm of other urinary tract organ; Z82.49 Family history of ischemic heart disease and other diseases of the circulatory system; Z87.891 Personal history of nicotine dependence; Z95.5 Presence of coronary angioplasty implant and graft
CPT/HCPCS: 36415; 70553; 71045; 80048; 80053; 81001; 82550; 82553; 82607; 83605; 84146; 84153; 84154; 84439; 84443; 84484; 85025; 85027; 87040; 87086; 93005; 94640; 94760; 95816; 96360; 96361; 99285

== ENCOUNTER 2019-08-13 15:19 | Inpatient (IN) | payer MEDICARE ==
[2019-08-13] MEDS ORDERED: ACETAMINOPHEN TAB 500 MG TAB PO STA (15:52)
[2019-08-13] MEDS ORDERED: IPRATROPIUM-ALBUTEROL 3 ML NEB INHALATION STA (15:53)
--- NOTE | 2019-08-13 15:56 | ED ---
General Adult HPI - General Chief complaint: Shortness of Breath Stated complaint: SOB Time Seen by Provider: 08/13/19 15:30 Source: patient, family, RN notes reviewed Mode of arrival: ambulatory Limitations: no limitations - History of Present Illness Initial comments: Patient is a pleasant 83-year-old male presenting to emergency Department with family with concerns for dyspnea. Symptoms started a few hours ago. Patient does have cough and dyspnea. Family reports the patient has no previous history of breathing problems however later stated the patient does occasionally take nebulizer treatments. Patient feels warm. Patient has been shaky. Patient feels somewhat fatigued in general. Patient does have history of Parkinson's and family states patient appears more stiff than normal. - Related Data Home Medications Medication Instructions Recorded Confirmed Ammonium Lactate Cream [Lac-Hydrin 1 applic TOPICAL BID PRN 06/23/19 08/13/19 12% Cream] Aspirin 81 mg PO DAILY 06/23/19 08/13/19 Garlic 1 tab PO DAILY 06/23/19 08/13/19 Levothyroxine Sodium [Synthroid] 50 mcg PO DAILY 06/23/19 08/13/19 Metoprolol Tartrate 12.5 mg PO DAILY 06/23/19 08/13/19 Multivitamins, Thera [Multivitamin 1 tab PO DAILY 06/23/19 08/13/19 (formulary)] Nitroglycerin 0.4 mg SL Q5M PRN 06/23/19 08/13/19 Spironolactone 12.5 mg PO DAILY 06/23/19 08/13/19 Vitamin E (Dl,Tocopheryl Acet) 400 unit PO DAILY 06/23/19 08/13/19 [Vitamin E] Docusate [Colace] 200 mg PO BID 08/13/19 08/13/19 Lansoprazole 30 mg PO DAILY 08/13/19 08/13/19 Previous Rx's Medication Instructions Recorded Acetaminophen Tab [Tylenol] 650 mg PO Q6HR PRN tab 06/29/19 Carbidopa-Levodopa 25-100 mg 1 tab PO BID #0 06/29/19 [Sinemet 25-100 mg] Furosemide [Lasix] 20 mg PO DAILY tab 06/29/19 Ipratropium-Albuterol Nebulize 3 ml INHALATION RT-QID PRN 06/29/19 [Duoneb 0.5 mg-3 mg/3 ml Soln] ampul.neb Allergies Allergy/AdvReac Type Severity Reaction Status Date / Time No Known Allergies Allergy Verified 08/13/19 16:01 Review of Systems ROS Statement: Those systems with pertinent positive or pertinent negative responses have been documented in the HPI. ROS Other: All systems not noted in ROS Statement are negative. Constitutional: Reports: fever, chills Eyes: Denies: eye pain ENT: Denies: ear pain Respiratory: Reports: cough, dyspnea Cardiovascular: Denies: chest pain Endocrine: Reports: fatigue Gastrointestinal: Denies: abdominal pain Genitourinary: Denies: dysuria Musculoskeletal: Denies: back pain Skin: Denies: rash Neurological: Reports: as per HPI Past Medical History Past Medical History: Coronary Artery Disease (CAD), COPD, Hyperlipidemia, Hypertension, Neurologic Disorder, Osteoarthritis (OA), Thyroid Disorder Additional Past Medical History / Comment(s): Parkinsons History of Any Multi-Drug Resistant Organisms: None Reported Past Surgical History: Hernia Repair Additional Past Surgical History / Comment(s): heart cath with stent 2002 Past Psychological History: No Psychological Hx Reported Smoking Status: Former smoker Past Alcohol Use History: None Reported Past Drug Use History: None Reported - Past Family History Mother Family Medical History: Congestive Heart Failure (CHF) (Mother at age of 89 from congestive heart failure.) Father Family Medical History: Cancer (Father at age of 86 from urethral cancer.) Brother(s) Family Medical History: No Reported History (Patient has one brother no major medical problems.) Sister(s) Family Medical History: Cancer (Patient has 3 sisters one of them with lupus one with breast cancer and the third one with cancer of unknown origin) Son(s) Family Medical History: No Reported History (Patient has 2 sons no major medical problems.) Daughter(s) Family Medical History: Cancer (2 daughters one of them with papillary carcinoma of the thyroid with hyperlipidemia the other one with breast cancer status post bilateral mastectomy.) General Exam Limitations: no limitations General appearance: alert, in no apparent distress Head exam: Present: atraumatic Eye exam: Present: normal appearance, PERRL ENT exam: Present: normal oropharynx Neck exam: Present: normal inspection Respiratory exam: Present: rales Cardiovascular Exam: Present: regular rate, normal rhythm GI/Abdominal exam: Present: soft. Absent: tenderness Extremities exam: Present: pedal edema (Family states this is normal). Absent: calf tenderness Neurological exam: Present: alert Psychiatric exam: Present: normal affect, normal mood Skin exam: Present: normal color Course Vital Signs 08/13/19 08/13/19 08/13/19 15:22 15:52 16:20 Temperature 99.5 F 102.5 F H Pulse Rate 99 95 95 Respiratory 32 H 30 H Rate Blood Pressure 139/81 151/83 O2 Sat by Pulse 91 L 96 Oximetry 08/13/19 08/13/19 16:30 17:00 Temperature Pulse Rate 97 115 H Respiratory 30 H Rate Blood Pressure 107/81 O2 Sat by Pulse 90 L Oximetry - Reevaluation(s) Reevaluation #1: 08/13/19 17:41 There is concern for sepsis diagnosed at 1740. Blood culture and lactic acid have been ordered. IV fluid bolus has been ordered. IV antibiotics will be ordered. EKG Findings - EKG Comments: EKG Findings:: Normal sinus rhythm 100. VT 188. QRS 90. QT 320. QTc 412. Left axis. Normal QRS. No acute ST change. Medical Decision Making - Medical Decision Making Patient reevaluated with only mild improvement. Patient will be given fluid bolus and Motrin. Patient clinically has symptoms consistent with pneumonia. Case was discussed in detail with Dr. Mari who did come evaluate patient and will admit. Repeat chest x-ray will be ordered for tomorrow. - Lab Data Result diagrams: 08/13/19 15:50 08/13/19 15:50 Lab Results 08/13/19 08/13/19 08/13/19 Range/Units 15:50 15:50 15:50 WBC 11.5 H (3.8-10.6) k/uL RBC 4.07 L (4.30-5.90) m/uL Hgb 13.3 (13.0-17.5) gm/dL Hct 39.4 (39.0-53.0) % MCV 96.7 (80.0-100.0) fL MCH 32.6 (25.0-35.0) pg MCHC 33.7 (31.0-37.0) g/dL RDW 12.8 (11.5-15.5) % Plt Count 204 (150-450) k/uL Neutrophils % 82 % Lymphocytes % 10 % Monocytes % 5 % Eosinophils % 1 % Basophils % 1 % Neutrophils # 9.4 H (1.3-7.7) k/uL Lymphocytes # 1.1 (1.0-4.8) k/uL Monocytes # 0.6 (0-1.0) k/uL Eosinophils # 0.1 (0-0.7) k/uL Basophils # 0.1 (0-0.2) k/uL PT (9.0-12.0) sec INR (<1.2) APTT (22.0-30.0) sec Sodium 141 (137-145) mmol/L Potassium 4.4 (3.5-5.1) mmol/L Chloride 102 (98-107) mmol/L Carbon Dioxide 29 (22-30) mmol/L Anion Gap 10 mmol/L BUN 27 H (9-20) mg/dL Creatinine 1.26 H (0.66-1.25) mg/dL Est GFR (CKD-EPI)AfAm 61 (>60 ml/min/1.73 sqM) Est GFR (CKD-EPI)NonAf 52 (>60 ml/min/1.73 sqM) Glucose 126 H (74-99) mg/dL Plasma Lactic Acid Herbie 1.9 (0.7-2.0) mmol/L Calcium 8.9 (8.4-10.2) mg/dL Total Bilirubin 0.5 (0.2-1.3) mg/dL AST 28 (17-59) U/L ALT 25 (21-72) U/L Alkaline Phosphatase 82 (38-126) U/L Total Protein 6.8 (6.3-8.2) g/dL Albumin 3.9 (3.5-5.0) g/dL Urine Color Urine Appearance (Clear) Urine pH (5.0-8.0) Ur Specific [place] (1.001-1.035) Urine Protein (Negative) Urine Glucose (UA) (Negative) Urine Ketones (Negative) Urine Blood (Negative) Urine Nitrite (Negative) Urine Bilirubin (Negative) Urine Urobilinogen (<2.0) mg/dL Ur Leukocyte Esterase (Negative) Urine RBC (0-5) /hpf Urine WBC (0-5) /hpf Ur Squamous Epith Cells (0-4) /hpf Urine Mucus (None) /hpf Influenza Type A RNA (Not Detectd) Influenza Type B (PCR) (Not Detectd) 08/13/19 08/13/19 08/13/19 Range/Units 15:50 17:10 17:10 WBC (3.8-10.6) k/uL RBC (4.30-5.90) m/uL Hgb (13.0-17.5) gm/dL Hct (39.0-53.0) % MCV (80.0-100.0) fL MCH (25.0-35.0) pg MCHC (31.0-37.0) g/dL RDW (11.5-15.5) % Plt Count (150-450) k/uL Neutrophils % % Lymphocytes % % Monocytes % % Eosinophils % % Basophils % % Neutrophils # (1.3-7.7) k/uL Lymphocytes # (1.0-4.8) k/uL Monocytes # (0-1.0) k/uL Eosinophils # (0-0.7) k/uL Basophils # (0-0.2) k/uL PT 10.0 (9.0-12.0) sec INR 0.9 (<1.2) APTT 25.4 (22.0-30.0) sec Sodium (137-145) mmol/L Potassium (3.5-5.1) mmol/L Chloride (98-107) mmol/L Carbon Dioxide (22-30) mmol/L Anion Gap mmol/L BUN (9-20) mg/dL Creatinine (0.66-1.25) mg/dL Est GFR (CKD-EPI)AfAm (>60 ml/min/1.73 sqM) Est GFR (CKD-EPI)NonAf (>60 ml/min/1.73 sqM) Glucose (74-99) mg/dL Plasma Lactic Acid Herbie (0.7-2.0) mmol/L Calcium (8.4-10.2) mg/dL Total Bilirubin (0.2-1.3) mg/dL AST (17-59) U/L ALT (21-72) U/L Alkaline Phosphatase (38-126) U/L Total Protein (6.3-8.2) g/dL Albumin (3.5-5.0) g/dL Urine Color Yellow Urine Appearance Clear (Clear) Urine pH 5.5 (5.0-8.0) Ur Specific [place] 1.014 (1.001-1.035) Urine Protein Negative (Negative) Urine Glucose (UA) Negative (Negative) Urine Ketones Negative (Negative) Urine Blood Trace H (Negative) Urine Nitrite Negative (Negative) Urine Bilirubin Negative (Negative) Urine Urobilinogen <2.0 (<2.0) mg/dL Ur Leukocyte Esterase Large H (Negative) Urine RBC 1 (0-5) /hpf Urine WBC 33 H (0-5) /hpf Ur Squamous Epith Cells <1 (0-4) /hpf Urine Mucus Rare H (None) /hpf Influenza Type A RNA Not Detected (Not Detectd) Influenza Type B (PCR) Not Detected (Not Detectd) - Radiology Data Radiology results: image reviewed (Chest x-ray shows no acute process) Critical Care Time Critical Care Time: Yes Total Critical Care Time: 32 Disposition Clinical Impression: Sepsis, UTI (urinary tract infection) Disposition: ADMITTED IP TO THIS [facility] Condition: Serious Is patient prescribed a controlled substance at d/c from ED?: No Referrals: Sohail Chavez DO [Primary Care Provider] - 1-2 days Decision Time: 17:45
[2019-08-13 16:30] LABS: Basophils # (A) 0.1 k/uL (0-0.2); Basophils % (A) 1 %; Eosinophils # (A) 0.1 k/uL (0-0.7); Eosinophils % (A) 1 %; HCT 39.4 % (39.0-53.0); HGB 13.3 gm/dL (13.0-17.5); Lymphocytes # (A) 1.1 k/uL (1.0-4.8); Lymphocytes % (A) 10 %; MCH 32.6 pg (25.0-35.0); MCHC 33.7 g/dL (31.0-37.0); MCV 96.7 fL (80.0-100.0); Mean Platelet Volume 6.5; Monocytes # (A) 0.6 k/uL (0-1.0); Monocytes % (A) 5 %; Neutrophils # (A) 9.4 k/uL (1.3-7.7); Neutrophils % (A) 82 %; Platelet Count 204 k/uL (150-450); RBC 4.07 m/uL (4.30-5.90); RDW 12.8 % (11.5-15.5); WBC 11.5 k/uL (3.8-10.6)
[2019-08-13 16:31] LABS: Albumin 3.9 g/dL (3.5-5.0); Calcium 8.9 mg/dL (8.4-10.2); Potassium 4.4 mmol/L (3.5-5.1); Total Bilirubin 0.5 mg/dL (0.2-1.3); Total Protein 6.8 g/dL (6.3-8.2)
[2019-08-13 16:32] LABS: INR 0.9 (<1.2); Partial Thromboplastin Time 25.4 sec (22.0-30.0)
--- NOTE | 2019-08-13 17:04 | XR ---
EXAMINATION TYPE: XR chest 2V DATE OF EXAM: 08/13/2019 COMPARISON: 06/23/2019 HISTORY: Fever TECHNIQUE: Frontal and lateral views of the chest are obtained. FINDINGS: There is no heart failure nor confluent pneumonic infiltrate. There is coarsening of the i nterstitial markings. Heart size is normal. There are chest leads. IMPRESSION: Mild pulmonary fibrosis. No acute lung disease. No change.
[2019-08-13] MEDS: SODIUM CHLORIDE 0.9% 1,000 ML IV SCH ×2 (17:07→23:24)
[2019-08-13 17:21] LABS: Appearance,Urine Clear (Clear); Bilirubin,Urine Negative (Negative); Blood,Urine Trace (Negative); Color,Urine Yellow; Glucose,Urine (UA) Negative (Negative); Ketones,Urine Negative (Negative); Leukocyte Esterase,Urine Large (Negative); Mucus,Urine Rare /hpf; Nitrite,Urine Negative (Negative); PH, Urine 5.5 (5.0-8.0); Protein,Urine Negative (Negative); RBC,Urine 1 /hpf (0-5); Specific Gravity,Urine 1.014 (1.001-1.035); Squamous Epithelial Cell,Urine <1 /hpf (0-4); Urobilinogen,Urine <2.0 mg/dL (<2.0)
[2019-08-13] MEDS ORDERED: AMMONIUM LACTATE 12% CREAM 140 GM TUBE TOPICAL PRN (17:36)
[2019-08-13] MEDS ORDERED: IPRATROPIUM-ALBUTEROL 3 ML NEB INHALATION PRN (17:36)
[2019-08-13] MEDS ORDERED: IBUPROFEN 600 MG TAB PO STA (17:39)
[2019-08-13] MEDS ORDERED: SODIUM CHLORIDE 0.9% 500 ML 500 ML IV STA (17:39)
[2019-08-13] MEDS ORDERED: SODIUM CHLORIDE 0.9% 1,000 ML IV STA ×2 (17:39)
--- NOTE | 2019-08-13 17:48 | P.HPIM ---
History of Present Illness H&P Date: 08/13/19 Chief Complaint: Fever cough confusion This is an 83-year-old male one of Dr. Chavez with a previous medical history significant for Parkinson disease as an outpatient follows with Dr. Shea, history of CAD post-PCI and stent placement under the care of cardio logy and regular basis, hypertension and hypertensive cardiovascular disease, hypothyroidism, patient was recently seen by Dr. Shea as an outpatient his Parkinson medications were adjusted and these adjustment were done on 06/14/2019 and by 06/21/2019 patient developed to have a significant confusion and he became more physically disabled not able to move extremities trying to fall backward and the patient has been having more confusion and mental status changes so he was brought to the ER at [facility] yesterday for evaluation he was found to have a mild UTI and was sent to [facility] for short term subacute rehab and thereafter was sent home. Patient has now been on home for approximately one month, in the care of family members including the and the daughter, was well until today, was noted to have cough, increasing weakness and confusion, and fever. Family cannot correlate as per the events, however on occasion which is rare, he would cough with fluids of solid food. He was supposed to have his levothyroxine increased to 75 g per day since the last admission, however they haven't started this as the prescription hasn't come in yet from the mail. Patient cannot provide much history today, he is very confused information comes from family members. Baseline community walking and requires a walker, no O2 requirements at home, has occasional nebulizer use,. Patient denies any nausea vomiting, no diarrhea, no skin rashes, no sick contacts In the ER there is no heart failure nor confluently pneumonic infiltrate, there is coarsening of interstitial markings, heart size is normal, findings of mild pulmonary fibrosis, no acute lung disease, no change he has a temperature of 102.5, influenza test still be done, double basic count of 11.5, creatinine of 1.26 which is worse, lactic acid normal at 1.9 urinalyses of 33 WBC,. Patient will be empirically started on IV antibiotics Rocephin, consult with Dr. Coon pulmonary, CAT scan of the chest, high resolution for pulmonary fibrosis eval and infiltrates Review of Systems ROS unobtainable: due to mental status Constitutional: Reports fatigue, Reports fever, Denies as per HPI, Denies anorexia, Denies chills, Denies chronic headaches, Denies chronic pain, Denies daytime sleepiness, Denies lethargy, Denies malaise, Denies night sweats, Denies poor appetite, Denies sweats, Denies weakness, Denies weight gain, Denies weight loss Ears, nose, mouth and throat: Denies as per HPI, Denies ant. neck pain, Denies bleeding gums, Denies dental pain, Denies dysphagia, Denies epistaxis, Denies headache, Denies hoarseness, Denies mouth pain, Denies nasal congestion, Denies nasal discharge, Denies neck fullness/pressure, Denies neck lump, Denies nose pain, Denies odynophagia, Denies post-nasal drip, Denies sinus pain, Denies sinus pressure, Denies swelling in mouth, Denies swelling in throat, Denies sore throat, Denies vertigo, Denies voice changes Cardiovascular: Reports as per HPI Respiratory: Reports as per HPI, Reports congestion, Reports cough Genitourinary: Denies as per HPI, Denies decreased libido, Denies difficulties fathering child, Denies discharge, Denies dysuria, Denies erectile dysfunction, Denies flank pain, Denies genital pain, Denies genital sores, Denies hematuria, Denies impotence, Denies incontinence, Denies kidney stones, Denies nocturia, Denies polyuria, Denies testicular lump, Denies testicular pain, Denies urinary frequency, Denies urinary hesitancy, Denies urinary retention Musculoskeletal: Reports gait dysfunction, Denies as per HPI, Denies arm numbness/tingling, Denies atrophy, Denies fractures, Denies frequent falls, Denies hot joints, Denies leg numbness/tingling, Denies limitation of motion, Denies loss of height, Denies low back pain, Denies morning stiffness, Denies muscle cramps, Denies muscle weakness, Denies myalgias, Denies neck pain, Denies neck stiffness, Denies prior amputations, Denies redness of joints, Denies shooting arm pain, Denies shooting leg pain Integumentary: Reports as per HPI, Denies acne, Denies boils, Denies brittle nails, Denies change in hair/nails, Denies color changes, Denies darkening of skin, Denies depigmentation, Denies dryness, Denies foot/leg ulcers, Denies growths, Denies hirsutism, Denies lesions, Denies onychomycosis, Denies pruritus, Denies rash, Denies sores, Denies striae, Denies unusual bruising, Denies wounds Neurological: Reports as per HPI, Reports gait dysfunction, Reports tremors Psychiatric: Reports as per HPI Endocrine: Reports as per HPI Hematologic/Lymphatic: Reports as per HPI Allergic/Immunologic: Reports as per HPI, Reports persistent infections, Denies allergic rhinitis, Denies anaphylaxis, Denies angioedema, Denies gluten intolerance, Denies seasonal allergies, Denies urticaria, Denies wheezing Past Medical History Past Medical History: Coronary Artery Disease (CAD), COPD, Hyperlipidemia, Hy pertension, Neurologic Disorder, Osteoarthritis (OA), Thyroid Disorder Additional Past Medical History / Comment(s): Parkinsons History of Any Multi-Drug Resistant Organisms: None Reported Past Surgical History: Hernia Repair Additional Past Surgical History / Comment(s): heart cath with stent 2002 Past Psychological History: No Psychological Hx Reported Smoking Status: Former smoker Past Alcohol Use History: None Reported Past Drug Use History: None Reported - Past Family History Mother Family Medical History: Congestive Heart Failure (CHF) (Mother at age of 89 from congestive heart failure.) Father Family Medical History: Cancer (Father at age of 86 from urethral cancer.) Brother(s) Family Medical History: No Reported History (Patient has one brother no major medical problems.) Sister(s) Family Medical History: Cancer (Patient has 3 sisters one of them with lupus one with breast cancer and the third one with cancer of unknown origin) Son(s) Family Medical History: No Reported History (Patient has 2 sons no major medical problems.) Daughter(s) Family Medical History: Cancer (2 daughters one of them with papillary carcinoma of the thyroid with hyperlipidemia the other one with breast cancer status post bilateral mastectomy.) Medications and Allergies Home Medications Medication Instructions Recorded Confirmed Type Ammonium Lactate Cream [Lac-Hydrin 1 applic TOPICAL BID PRN 06/23/19 08/13/19 History 12% Cream] Aspirin 81 mg PO DAILY 06/23/19 08/13/19 History Garlic 1 tab PO DAILY 06/23/19 08/13/19 History Levothyroxine Sodium [Synthroid] 50 mcg PO DAILY 06/23/19 08/13/19 History Metoprolol Tartrate 12.5 mg PO DAILY 06/23/19 08/13/19 History Multivitamins, Thera [Multivitamin 1 tab PO DAILY 06/23/19 08/13/19 History (formulary)] Nitroglycerin 0.4 mg SL Q5M PRN 06/23/19 08/13/19 History Spironolactone 12.5 mg PO DAILY 06/23/19 08/13/19 History Vitamin E (Dl,Tocopheryl Acet) 400 unit PO DAILY 06/23/19 08/13/19 History [Vitamin E] Acetaminophen Tab [Tylenol] 650 mg PO Q6HR PRN tab 06/29/19 08/13/19 Rx Carbidopa-Levodopa 25-100 mg 1 tab PO BID #0 06/29/19 08/13/19 Rx [Sinemet 25-100 mg] Furosemide [Lasix] 20 mg PO DAILY tab 06/29/19 08/13/19 Rx Ipratropium-Albuterol Nebulize 3 ml INHALATION RT-QID PRN 06/29/19 08/13/19 Rx [Duoneb 0.5 mg-3 mg/3 ml Soln] ampul.neb Docusate [Colace] 200 mg PO BID 08/13/19 08/13/19 History Lansoprazole 30 mg PO DAILY 08/13/19 08/13/19 History Allergies Allergy/AdvReac Type Severity Reaction Status Date / Time No Known Allergies Allergy Verified 08/13/19 16:01 Physical Exam Vitals: Vital Signs Temp Pulse Resp BP Pulse Ox 08/13/19 17:00 115 H 30 H 107/81 90 L 08/13/19 16:30 97 08/13/19 16:20 95 08/13/19 15:52 102.5 F H 95 30 H 151/83 96 08/13/19 15:22 99.5 F 99 32 H 139/81 91 L Intake and Output 08/13/19 08/13/19 08/13/19 06:59 14:59 22:59 Other: Weight 83.915 kg - Constitutional General appearance: disheveled, mild distress - EENT Eyes: anicteric sclerae, EOMI, PERRLA, dentition normal ENT: hard of hearing - Neck Neck: no lymphadenopathy, normal ROM, no other, no rigidity, no stridor, no thyromegaly - Respiratory Respiratory: bilateral: diminished, rhonchi - Cardiovascular Rhythm: regular Heart sounds: normal: S1, S2 Abnormal Heart Sounds: no systolic murmur, no diastolic murmur, no rub, no S3 Gallop, no S4 Gallop, no click, no other - Gastrointestinal General gastrointestinal: normal bowel sounds, soft - Integumentary Integumentary: decreased turgor, normal - Neurologic Neurologic: CNII-XII intact - Musculoskeletal Musculoskeletal: generalized weakness - Psychiatric Confused, unable to answer to questions appropriately Results CBC & Chem 7: 08/13/19 15:50 08/13/19 15:50 Labs: Abnormal Lab Results - Last 24 Hours (Table) 08/13/19 08/13/19 08/13/19 Range/Units 15:50 15:50 17:10 WBC 11.5 H (3.8-10.6) k/uL RBC 4.07 L (4.30-5.90) m/uL Neutrophils # 9.4 H (1.3-7.7) k/uL BUN 27 H (9-20) mg/dL Creatinine 1.26 H (0.66-1.25) mg/dL Glucose 126 H (74-99) mg/dL Urine Blood Trace H (Negative) Ur Leukocyte Esterase Large H (Negative) Urine Mucus Rare H (None) /hpf Laboratory Results WBC 11.5 k/uL (3.8-10.6) H 08/13/19 15:50 RBC 4.07 m/uL (4.30-5.90) L 08/13/19 15:50 Hgb 13.3 gm/dL (13.0-17.5) 08/13/19 15:50 Hct 39.4 % (39.0-53.0) 08/13/19 15:50 MCV 96.7 fL (80.0-100.0) 08/13/19 15:50 MCH 32.6 pg (25.0-35.0) 08/13/19 15:50 MCHC 33.7 g/dL (31.0-37.0) 08/13/19 15:50 RDW 12.8 % (11.5-15.5) 08/13/19 15:50 Plt Count 204 k/uL (150-450) 08/13/19 15:50 Neutrophils % 82 % 08/13/19 15:50 Lymphocytes % 10 % 08/13/19 15:50 Monocytes % 5 % 08/13/19 15:50 Eosinophils % 1 % 08/13/19 15:50 Basophils % 1 % 08/13/19 15:50 Neutrophils # 9.4 k/uL (1.3-7.7) H 08/13/19 15:50 Lymphocytes # 1.1 k/uL (1.0-4.8) 08/13/19 15:50 Monocytes # 0.6 k/uL (0-1.0) 08/13/19 15:50 Eosinophils # 0.1 k/uL (0-0.7) 08/13/19 15:50 Basophils # 0.1 k/uL (0-0.2) 08/13/19 15:50 PT 10.0 sec (9.0-12.0) 08/13/19 15:50 INR 0.9 (<1.2) 08/13/19 15:50 APTT 25.4 sec (22.0-30.0) 08/13/19 15:50 Sodium 141 mmol/L (137-145) 08/13/19 15:50 Potassium 4.4 mmol/L (3.5-5.1) 08/13/19 15:50 Chloride 102 mmol/L (98-107) 08/13/19 15:50 Carbon Dioxide 29 mmol/L (22-30) 08/13/19 15:50 Anion Gap 10 mmol/L 08/13/19 15:50 BUN 27 mg/dL (9-20) H 08/13/19 15:50 Creatinine 1.26 mg/dL (0.66-1.25) H 08/13/19 15:50 Est GFR (CKD-EPI)AfAm 61 (>60 ml/min/1.73 sqM) 08/13/19 15:50 Est GFR (CKD-EPI)NonAf 52 (>60 ml/min/1.73 sqM) 08/13/19 15:50 Glucose 126 mg/dL (74-99) H 08/13/19 15:50 Plasma Lactic Acid Herbie 1.9 mmol/L (0.7-2.0) 08/13/19 15:50 Calcium 8.9 mg/dL (8.4-10.2) 08/13/19 15:50 Total Bilirubin 0.5 mg/dL (0.2-1.3) 08/13/19 15:50 AST 28 U/L (17-59) 08/13/19 15:50 ALT 25 U/L (21-72) 08/13/19 15:50 Alkaline Phosphatase 82 U/L (38-126) 08/13/19 15:50 Total Protein 6.8 g/dL (6.3-8.2) 08/13/19 15:50 Albumin 3.9 g/dL (3.5-5.0) 08/13/19 15:50 Urine Color Yellow 08/13/19 17:10 Urine Appearance Clear (Clear) 08/13/19 17:10 Urine pH 5.5 (5.0-8.0) 08/13/19 17:10 Ur Specific [place] 1.014 (1.001-1.035) 08/13/19 17:10 Urine Protein Negative (Negative) 08/13/19 17:10 Urine Glucose (UA) Negative (Negative) 08/13/19 17:10 Urine Ketones Negative (Negative) 08/13/19 17:10 Urine Blood Trace (Negative) H 08/13/19 17:10 Urine Nitrite Negative (Negative) 08/13/19 17:10 Urine Bilirubin Negative (Negative) 08/13/19 17:10 Urine Urobilinogen <2.0 mg/dL (<2.0) 08/13/19 17:10 Ur Leukocyte Esterase Large (Negative) H 08/13/19 17:10 Urine RBC 1 /hpf (0-5) 08/13/19 17:10 Urine WBC 33 /hpf (0-5) H 08/13/19 17:10 Ur Squamous Epith Cells <1 /hpf (0-4) 08/13/19 17:10 Urine Mucus Rare /hpf (None) H 08/13/19 17:10 Thrombosis Risk Factor Assmnt - DVT/VTE Prophylaxis DVT/VTE Prophylaxis: Pharmacologic Prophylaxis ordered - Choose All That Apply Each Factor Represents 1 point: Swollen legs (current) Each Risk Factor Represents 3 Points: Age 75 years or older Thrombosis Risk Factor Assessment Total Risk Factor Score: 4 Thrombosis Risk Factor Assessment Level: Moderate Risk Assessment and Plan Plan: 1. Fever, with SIRS, metabolic encephalopathy, has pyuria, and community- acquired pneumonia is suspected, cannot rule out aspiration pneumonia, however he was in subacute facility and hospital less than 3 months ago, the city facility acquired pneumonia is also a possibility, patient will be started on IV Zosyn, blood cultures, sputum cultures, urine cultures, consult with Dr. Ai [place], pulmonary, O2 for supplementation, nebulized treatments, check for d- dimer, CT high resolution, 2. Acute hypoxemic respiratory failure, O2 supplementation, sputum cultures, nebulized treatments, eval for aspiration, consult speech with modified barium swallow eval, treat underlying primary problem 3. Acute kidney injury, secondary to dehydration, IV fluids for hydration, gentle diuresing, patient has edema if not better with SCDs and compression socks 4 Bilateral leg swelling, venous Dopplers to be done if d-dimer is elevated, continue on low-dose Lasix we'll need to titrate, Eulalio wrap on the legs 5 Parkinson disease. Continue patient on Sinemet 25/100 milligrams twice a day per home doseNot on the prerenal at this time 6 CAD post-PCI. Continue metoprolol 12.5 mg once every day, aspirin 81 mg once every day, Lipitor 20 mg orally once every day, nitro glycerin as needed, continue with Lasix and spironolactone. 7. Hypertension and hypertensive cardiovascular disease. Continue metoprolol 12.5 mg orally once every day. 5. Hyperlipidemia. Continue Lipitor 20 mg orally once every day. 6. Hypothyroidism. Continue patient on Synthroid 50 g orally once every day. 7. DVT prophylaxis. Heparin 5000 units subcutaneously every 8 hours. 8. GI prophylaxis. Protonix 40 mg orally once every day. 9. UTI with sepsis. iv zosyn emperic . Check urine culture and blood cultures. 10. Patient is full code. 11. Admitted to inpatient. Estimate a length of stay 2 midnights.
[2019-08-13] MEDS ORDERED: LEVOFLOXACIN 750MG-D5W PMX 750 MG in DEXTROSE/WATER 1 150ML.BAG IVPB STA (17:49)
[2019-08-13] MEDS ORDERED: PNEUMONIA PROTOCOL UTILIZED 1 EACH MISC PO PRN (17:49)
[2019-08-13] MEDS ORDERED: PIPERACILLIN-TAZOBACTAM 3.375 GM in SODIUM CHLORIDE 0.9% 100 ML IVPB STA (17:49)
--- NOTE | 2019-08-13 19:14 | CT ---
EXAMINATION TYPE: CT chest wo con DATE OF EXAM: 08/13/2019 COMPARISON: None HISTORY: fever CT DLP: 519.5 mGycm. Automated Exposure Control for Dose Reduction was Utilized. TECHNIQUE: CT scan of the thorax is performed without IV contrast. FINDINGS: There is patchy airspace consolidation and atelectasis in both lower lobes. There is no pleural effus ion. Heart appears slightly enlarged. There is no pericardial effusion. There are no hilar masses. Th ere is no mediastinal adenopathy. Thoracic aorta is atheromatous. There is aneurysm of the ascending aorta that measures 4.2 cm. There is coronary artery calcification. Thoracic spine is intact. The rib s appear intact. IMPRESSION: Bilateral lower lobe pneumonia and atelectasis. Mild thoracic aortic aneurysm.
[2019-08-13 20:35] VITALS: BMI 28.1
[2019-08-13] MEDS: BUDESONIDE 0.5 MG/2 ML NEBU INHALATION SCH (21:05)
[2019-08-13] MEDS: IPRATROPIUM-ALBUTEROL 3 ML NEB INHALATION PRN (21:05)
[2019-08-13] MEDS: DOCUSATE 100 MG CAP PO SCH (21:42)
[2019-08-13] MEDS: HEPARIN SODIUM,PORCINE 5,000 UNIT/ML 1 ML VIAL SQ SCH (21:42)
[2019-08-13] MEDS: CARBIDOPA-LEVODOPA 25-100 MG 1 EACH TAB PO SCH (21:42)
[2019-08-14] MEDS ORDERED: PIPERACILLIN-TAZOBACTAM 3.375 GM in SODIUM CHLORIDE 0.9% 100 ML IVPB SCH ×2
[2019-08-14] MEDS: PIPERACILLIN-TAZOBACTAM 3.375 GM in SODIUM CHLORIDE 0.9% 100 ML IVPB SCH ×3 (04:46→20:34)
[2019-08-14] MEDS: LEVOTHYROXINE 75 MCG TAB PO SCH (06:01)
[2019-08-14 07:12] LABS: Basophils # (A) 0.1 k/uL (0-0.2); Basophils % (A) 1 %; Eosinophils # (A) 0.1 k/uL (0-0.7); Eosinophils % (A) 1 %; HCT 33.4 % (39.0-53.0); HGB 11.3 gm/dL (13.0-17.5); Lymphocytes # (A) 0.8 k/uL (1.0-4.8); Lymphocytes % (A) 10 %; MCH 32.8 pg (25.0-35.0); MCHC 33.7 g/dL (31.0-37.0); MCV 97.4 fL (80.0-100.0); Mean Platelet Volume 6.2; Monocytes # (A) 0.5 k/uL (0-1.0); Monocytes % (A) 6 %; Neutrophils # (A) 6.5 k/uL (1.3-7.7); Neutrophils % (A) 80 %; Platelet Count 163 k/uL (150-450); RBC 3.43 m/uL (4.30-5.90)
[2019-08-14 07:25] LABS: Albumin 2.8 g/dL (3.5-5.0); Calcium 8.1 mg/dL (8.4-10.2); Potassium 4.2 mmol/L (3.5-5.1); Total Bilirubin 0.6 mg/dL (0.2-1.3); Total Protein 5.2 g/dL (6.3-8.2)
[2019-08-14] MEDS: DOCUSATE 100 MG CAP PO SCH ×2 (08:26→20:30)
[2019-08-14] MEDS: METOPROLOL TARTRATE 12.5 MG TAB PO SCH (08:26)
[2019-08-14] MEDS: CARBIDOPA-LEVODOPA 25-100 MG 1 EACH TAB PO SCH ×4 (08:26→20:30)
[2019-08-14] MEDS: SODIUM CHLORIDE 0.9% 1,000 ML IV SCH ×3 (08:26→23:43)
[2019-08-14] MEDS: FUROSEMIDE 20 MG TAB PO SCH (08:27)
[2019-08-14] MEDS: ASPIRIN 81 MG PO SCH (08:27)
[2019-08-14] MEDS: HEPARIN SODIUM,PORCINE 5,000 UNIT/ML 1 ML VIAL SQ SCH ×2 (08:27→20:30)
[2019-08-14] MEDS: PANTOPRAZOLE 40 MG TABLET PO SCH (08:27)
[2019-08-14] MEDS: SPIRONOLACTONE 25 MG TAB PO SCH (08:27)
--- NOTE | 2019-08-14 08:28 | P.PN ---
Subjective Progress Note Date: 08/14/19 This is an 83-year-old male one of Dr. Chavez with a previous medical history significant for Parkinson disease as an outpatient follows with Dr. Shea, history of CAD post-PCI and stent placement under the care of cardiology and regular basis, hypertension and hypertensive cardiovascular dis ease, hypothyroidism, patient was recently seen by Dr. Shea as an outpatient his Parkinson medications were adjusted and these adjustment were done on 06/14/2019 and by 06/21/2019 patient developed to have a significant confusion and he became more physically disabled not able to move extremities trying to fall backward and the patient has been having more confusion and mental status changes so he was brought to the ER at [facility] yesterday for evaluation he was found to have a mild UTI and was sent to [facility] in [facility] for short term subacute rehab and thereafter was sent home. Patient has now been on home for approximately one month, in the care of family members including the and the daughter, was well until today, was noted to have cough, increasing weakness and confusion, and fever. Family cannot correlate as per the events, however on occasion which is rare, he would cough with fluids of solid food. He was supposed to have his levothyroxine increased to 75 g per day since the last admission, however they haven't started this as the prescription hasn't come in yet from the mail. Patient cannot provide much history today, he is very confused information comes from family members. Baseline community walking and requires a walker, no O2 requirements at home, has occasional nebulizer use,. Patient denies any nausea vomiting, no diarrhea, no skin rashes, no sick contacts In the ER there is no heart failure nor confluently pneumonic infiltrate, there is coarsening of interstitial markings, heart size is normal, findings of mild pulmonary fibrosis, no acute lung disease, no change he has a temperature of 102.5, influenza test still be done, double basic count of 11.5, creatinine of 1.26 which is worse, lactic acid normal at 1.9 urinalyses of 33 WBC,. Patient will be empirically started on IV antibiotics Rocephin, consult with Dr. Shaggy lieberman, CAT scan of the chest, high resolution for pulmonary fibrosis eval and infiltrates 08/14/19: The time of exam patient is with physical therapy assisting to transfer to wheelchair. Patient is to have difficulty utilizing walker unable to step forward with assistance from August. Patient was able to rise and wheelchair was placed behind him to sit. Patient was stiff with movements. Patient states that his breathing is better continuing to have weakness and wheezes. Patient is afebrile, hemodynamically stable. WC 8.0, hemoglobin 11.3, B UN 22, creatinine 1.19, influenza A and B were both negative. Review Of Systems: Constitutional: No fever, no chills, no night sweats. No weight change. Reports weakness, no fatigue or lethargy. No daytime sleepiness. EENT: No headache. No blurred vision or double vision, no loss of vision. No loss of Hearing, no ringing in the ears, no dizziness. No nasal drainage or congestion. No epistaxis. No sore throat. Lungs: No shortness of breath, cough, no sputum production. Reports wheezing. Cardiovascular: No chest pain, no lower extremity edema. No palpitations. No paroxysmal nocturnal dyspnea. No orthopnea. No lightheadedness or dizziness. No syncopal episodes. Abdominal: no abdominal discomfort. No nausea, vomiting. no diarrhea. No constipation. No bloody or tarry stools. no loss of appetite. Genitourinary: No dysuria, increased frequency, urgency. No urinary retention. Musculoskeletal: No myalgias. Reports muscle weakness, reports gait dysfunction, no frequent falls. No back pain. No neck pain. Integumentary: No wounds, no lesions. No rash or pruritus. No unusual bruising. No change in hair or nails. Neurologic: No aphasia. No facial droop. No change in mentation. No head injury. No headache. No paralysis. No paresthesia. Psychiatric: No depression. No anxiety. No mood swings. Endocrine: No abnormal blood sugars. No weight change. No excessive sweating or thirst. Objective - Vital Signs Vital signs: Vital Signs Temp 98.4 F 08/14/19 04:48 Pulse 76 08/14/19 04:48 Resp 16 08/14/19 04:48 BP 115/76 08/14/19 04:48 Pulse Ox 91 L 08/14/19 04:48 Intake & Output 08/13/19 08/14/19 08/14/19 18:59 06:59 18:59 Intake Total 890 Balance 890 Weight 83.915 kg Intake: Intake, IV Titration 650 Amount Levofloxacin 750Mg-D5w 150 Pmx 750 mg In Dextrose/ Water 1 150ml.bag @ 100 mls/hr IVPB Q48H PENDING SALE TO [facility] Rx#: [id number] Sodium Chloride 0.9% 500 500 ml 500 ml @ 999 mls/hr IV .Q31M STA Rx#:[id number] Oral 240 Other: Voiding Method Urinal Incontinent # Voids 1 - Exam General Appearance: Alert, cooperative, no distress, appears stated age. Neck HEENT: Supple, no lymphadenopathy, no thyroid enlargement, no carotid bruits. Lungs: Wheezes throughout especially in the bases, no crackles no rhonchi no deformity Chest Wall: Chest wall decrease expansion with deep inspiration no tenderness and no deformity was found on exam, no costochondral pain or discomfort. Heart: Regular rate and rhythm, S1, S2 normal, no murmur, rub or gallop. Back: Symmetric, no curvature, ROM normal, no CVA tenderness. Abdomen: Soft, non-tender, no rebound or rigidity, no hepatosplenomegaly. Extremities: Extremities normal, atraumatic, no cyanosis, edema 2+ bilaterally. Pulses: 2+ and symmetric. Skin: Skin color, texture, tugor normal, no rashes or lesions. Neurologic: Alert oriented x3 cranial nerves II through XII intact, no motor deficit, positive abnormal balance and gait - Labs CBC & Chem 7: 08/14/19 06:17 08/14/19 06:17 Labs: Abnormal Lab Results - Last 24 Hours (Table) 08/13/19 08/13/19 08/13/19 Range/Units 15:50 15:50 15:50 WBC 11.5 H (3.8-10.6) k/uL RBC 4.07 L (4.30-5.90) m/uL Hgb (13.0-17.5) gm/dL Hct (39.0-53.0) % Neutrophils # 9.4 H (1.3-7.7) k/uL Lymphocytes # (1.0-4.8) k/uL D-Dimer 0.69 H (<0.60) mg/L FEU Chloride (98-107) mmol/L BUN 27 H (9-20) mg/dL Creatinine 1.26 H (0.66-1.25) mg/dL Glucose 126 H (74-99) mg/dL Calcium (8.4-10.2) mg/dL ALT (21-72) U/L Total Protein (6.3-8.2) g/dL Albumin (3.5-5.0) g/dL Urine Blood (Negative) Ur Leukocyte Esterase (Negative) Urine WBC (0-5) /hpf Urine Mucus (None) /hpf 08/13/19 08/14/19 08/14/19 Range/Units 17:10 06:17 06:17 WBC (3.8-10.6) k/uL RBC 3.43 L (4.30-5.90) m/uL Hgb 11.3 L (13.0-17.5) gm/dL Hct 33.4 L (39.0-53.0) % Neutrophils # (1.3-7.7) k/uL Lymphocytes # 0.8 L (1.0-4.8) k/uL D-Dimer (<0.60) mg/L FEU Chloride 110 H (98-107) mmol/L BUN 22 H (9-20) mg/dL Creatinine (0.66-1.25) mg/dL Glucose (74-99) mg/dL Calcium 8.1 L (8.4-10.2) mg/dL ALT 16 L (21-72) U/L Total Protein 5.2 L (6.3-8.2) g/dL Albumin 2.8 L (3.5-5.0) g/dL Urine Blood Trace H (Negative) Ur Leukocyte Esterase Large H (Negative) Urine WBC 33 H (0-5) /hpf Urine Mucus Rare H (None) /hpf Microbiology - Last 24 Hours (Table) 08/13/19 17:10 Urine Culture - Preliminary Urine,Voided Assessment and Plan Plan: 1. Fever, with SIRS, metabolic encephalopathy, has pyuria, and community- acquired pneumonia is suspected, cannot rule out aspiration pneumonia, however he was in subacute facility and hospital less than 3 months ago, the city facility acquired pneumonia is also a possibility, patient will be started on IV Zosyn, blood cultures, sputum cultures, urine cultures, consult with Dr. Zaragoza, pulmonary, O2 for supplementation, nebulized treatments, check for d- dimer, CT high resolution, 2. Acute hypoxemic respiratory failure, Solu-Medrol 60 mg every 6 hours, O2 supplementation, sputum cultures, nebulized treatments, eval for aspiration, consult speech with modified barium swallow eval, treat underlying primary problem 3. Acute kidney injury, secondary to dehydration, IV fluids for hydration, gentle diuresing, patient has edema if not better with SCDs and compression socks 4 Bilateral leg swelling, venous Dopplers to be done if d-dimer is elevated, continue on low-dose Lasix we'll need to titrate, Eulalio wrap on the legs 5 Parkinson disease. Continue patient on Sinemet 25/100 milligrams twice a day per home 6 CAD post-PCI. Continue metoprolol 12.5 mg once every day, aspirin 81 mg once every day, Lipitor 20 mg orally once every day, nitro glycerin as needed, continue with Lasix and spironolactone. 7. Hypertension and hypertensive cardiovascular disease. Continue metoprolol 12.5 mg orally once every day. 5. Hyperlipidemia. Continue Lipitor 20 mg orally once every day. 6. Hypothyroidism. Continue patient on Synthroid 50 g orally once every day. 7. DVT prophylaxis. Heparin 5000 units subcutaneously every 8 hours. 8. GI prophylaxis. Protonix 40 mg orally once every day. 9. UTI with sepsis. iv zosyn emperic . Check urine culture and blood c ultures. CODE STATUS: Full code Admitted to inpatient. Estimate a length of stay 2 midnights. Impression and plan of care have been directed as dictated by the signing physician. Dodie Cotto nurse practitioner acting as scribe for signing physician.
[2019-08-14] MEDS ORDERED: methylPREDNISolone SOD SUCCI 125 MG/2 ML VIAL IV SCH (09:00)
[2019-08-14] MEDS ORDERED: LEVOTHYROXINE 50 MCG TAB PO SCH (09:00)
[2019-08-14] MEDS: IPRATROPIUM-ALBUTEROL 3 ML NEB INHALATION PRN (09:22)
[2019-08-14] MEDS: BUDESONIDE 0.5 MG/2 ML NEBU INHALATION SCH ×2 (09:22→20:44)
--- NOTE | 2019-08-14 09:23 | XR ---
EXAMINATION TYPE: XR chest 2V DATE OF EXAM: 08/14/2019 HISTORY: pneumonia. REFERENCE: Previous study dated 08/13/2019. FINDINGS: The lungs are overinflated. There is a worsening infiltrate in the left lung base. The hear t is not enlarged. I cannot exclude a small left effusion. IMPRESSION: 1. COPD. 2. WORSENING LEFT BASILAR PNEUMONIA. 3. I COULD NOT EXCLUDE A SMALL LEFT EFFUSION.
[2019-08-14] MEDS: methylPREDNISolone SOD SUCCI 125 MG/2 ML VIAL IV SCH ×3 (10:51→20:30)
--- NOTE | 2019-08-14 12:49 | CONS ---
CONSULTATION DATE OF SERVICE: August 14, 2019 HISTORY OF PRESENT ILLNESS: This is an 83-year-old gentleman who sees Dr. Sohail Chavez. He apparently was helping his daughter yesterday and all of a sudden developed temperature elevation. He apparently also complained of shortness of breath, became very stiff. He was coughing. He was taken to the emergency room where he was evaluated and found to have a bladder infection and possible pneumonia. He apparently does not have any issues with breathing in the past, although he does have chronic cough. The patient has never seen a social sciences lecturer in the past. Apparently, he had been feeling shaky yesterday and fatigued as well. Most of the history is obtained from the H and P, from the emergency room physician and also from the . 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 Currently, he is feeling much better. She states that his overall condition looks dramatically better than it was yesterday. He did have a chest x-ray which suggested the possibility of some bibasilar atelectasis or infiltrates. A CT scan was done and showed similar findings. He was also thought to have a bladder infection. Again, his primary doctor is Dr. Chavez. Apparently, the patient was admitted to Dr. Mari's service. CURRENT HOME MEDICATIONS: Include Lac-Hydrin cream, aspirin, garlic, levothyroxine, metoprolol, multivitamins, nitroglycerin, Aldactone, vitamin D, Colace, and a proton pump inhibitor. Also, he is currently on Tylenol, Sinemet for his Parkinson disease, Lasix and updraft treatments, although he apparently does not have any history of any lung disease. ALLERGIES: Denied. PAST MEDICAL HISTORY: Includes CAD. He may have some underlying COPD. He has never apparently been tested. He did smoke for about 40 years at a pack a day. He quit 29 years back. He does have a history of hyperlipidemia and hypertension and also Parkinson disease. The patient does likely has some underlying dementia as well. He does have a history of DJD and also hypothyroidism. SURGICAL HISTORY: Includes a heart stent back in 2002 and hernia repair. SOCIAL HISTORY: Positive for about 40 years or so. Tobacco use at about a pack a day. Quit many years back. No alcohol use and no illicit drug use. FAMILY HISTORY: Positive for mother with heart failure, father with bladder cancer, a brother with no major medical problems. A sister with lupus and breast cancer. Son with no major medical problems and a daughter with history of papillary carcinoma of the thyroid and hyperlipidemia. REVIEW OF SYSTEMS: CONSTITUTIONAL: Weakness, fatigue, fever. NEUROLOGICAL: Dementia. HEENT negative. CARDIOVASCULAR negative. PULMONARY: Cough and shortness of breath. GI negative. : Possible urinary tract infection. RHEUMATOLOGIC negative. IMMUNOLOGIC negative. DERMATOLOGIC negative. PHYSICAL EXAMINATION: VITAL SIGNS: Current vital signs are reviewed. T-max is 102.5. Current temperature is 98.4. Heart rate 86, respiratory rate 16, blood pressure 115/76. Mean 89, 2 L saturation 91%. GENERAL: Appears in no acute distress. HEENT examination is grossly unremarkable. Nasal O2 noted. NECK: Supple. Full range of motion. No adenopathy or thyromegaly. CARDIOVASCULAR: Examination reveals regular rhythm and rate. Heart rate about 80 beats per minute. S1, S2 normal. No S3, S4, or murmur. LUNGS: Some coarse rhonchi. Some bibasilar crackles. Breath sounds equal bilaterally. No wheezes are noted. ABDOMEN: Soft. Bowel sounds are heard. EXTREMITIES are intact. No cyanosis, clubbing, or edema. SKIN: Without rash. NEUROLOGIC: Examination is difficult to assess given his dementia and Parkinson's disease. He does move all 4 extremities well. LABS: Reviewed. White count 8, hemoglobin 11.3, hematocrit 33.4, platelet count 163,000. PT/INR normal. PTT normal. D-dimer 0.69. Sodium and potassium normal. Chloride 110. CO2 24. BUN and creatinine were 22 and 1.19 compared to 27 and 1.26 yesterday. Calcium 8.1, albumin 2.8. Urine shows trace blood, large leukocyte esterase, 33 WBCs. No bacteria. Influenza studies are negative. IMAGING: Chest x-rays are reviewed. His chest x-ray initially shows some mild basilar atelectasis. There may be some mild interstitial changes as well. A followup chest x- ray shows some interstitial changes and some infiltrate at the left lung base. CT scan is reviewed. It is a CT scan of the chest without contrast. It shows bilateral lower lobe atelectasis. There also may be some bilateral lower lobe pneumonia as well. Microbiologic studies are thus far negative. Medications are reviewed. Currently he is on Pulmicort, albuterol and Atrovent updrafts, Levaquin and Solu- Medrol. He is also on Zosyn. ASSESSMENT: 1. Febrile illness, which likely represents either pneumonia and/or urinary tract infection. 2. Rule out interstitial lung disease/pulmonary fibrosis. 3. History of Parkinson disease. 4. Previous history of heavy tobacco use, chronic obstructive pulmonary disease. Rule out chronic obstructive pulmonary disease. 5. History of coronary artery disease. 6. History of hyperlipidemia. 7. History of hypertension. 8. Coronary artery disease with previous stent placement. 9. Hypothyroidism. 10.Parkinson disease. 11.Degenerative joint disease. PLAN: The patient is on more than adequate antibiotics. I do not believe he needs steroids. He is on breathing treatments. Additional recommendations and suggestions are forthcoming. He has 100% better today than he was yesterday. Culture data is pending. We will continue to follow as needed. MMJUAN FL / IJN: [id number] /
[2019-08-15] MEDS: methylPREDNISolone SOD SUCCI 125 MG/2 ML VIAL IV SCH ×2 (02:39→07:58)
[2019-08-15] MEDS: PIPERACILLIN-TAZOBACTAM 3.375 GM in SODIUM CHLORIDE 0.9% 100 ML IVPB SCH ×3 (03:40→20:36)
[2019-08-15] MEDS: LEVOTHYROXINE 75 MCG TAB PO SCH (06:11)
[2019-08-15 07:11] LABS: Basophils % (A) 0 %; Eosinophils % (A) 0 %; HCT 36.1 % (39.0-53.0); HGB 12.1 gm/dL (13.0-17.5); Lymphocytes % (A) 9 %; MCH 32.3 pg (25.0-35.0); MCHC 33.5 g/dL (31.0-37.0); MCV 96.4 fL (80.0-100.0); Mean Platelet Volume 6.4; Monocytes # (A) 0.3 k/uL (0-1.0); Monocytes % (A) 2 %; Neutrophils # (A) 9.8 k/uL (1.3-7.7); Neutrophils % (A) 88 %; Platelet Count 184 k/uL (150-450); RBC 3.74 m/uL (4.30-5.90); RDW 12.7 % (11.5-15.5); WBC 11.2 k/uL (3.8-10.6)
[2019-08-15 07:21] LABS: Albumin 3.2 g/dL (3.5-5.0); Total Bilirubin 0.6 mg/dL (0.2-1.3)
[2019-08-15] MEDS: SPIRONOLACTONE 25 MG TAB PO SCH (07:56)
[2019-08-15] MEDS: ASPIRIN 81 MG PO SCH (07:56)
[2019-08-15] MEDS: METOPROLOL TARTRATE 12.5 MG TAB PO SCH (07:56)
[2019-08-15] MEDS: PANTOPRAZOLE 40 MG TABLET PO SCH (07:56)
[2019-08-15] MEDS: FUROSEMIDE 20 MG TAB PO SCH (07:57)
[2019-08-15] MEDS: DOCUSATE 100 MG CAP PO SCH ×2 (07:57→20:37)
[2019-08-15] MEDS: HEPARIN SODIUM,PORCINE 5,000 UNIT/ML 1 ML VIAL SQ SCH ×2 (07:58→20:37)
[2019-08-15] MEDS: CARBIDOPA-LEVODOPA 25-100 MG 1 EACH TAB PO SCH ×2 (07:59→20:37)
[2019-08-15] MEDS: BUDESONIDE 0.5 MG/2 ML NEBU INHALATION SCH ×2 (08:15→19:52)
--- NOTE | 2019-08-15 08:50 | P.PN ---
Subjective Progress Note Date: 08/15/19 This is an 83-year-old male one of Dr. Chavez with a previous medical history significant for Parkinson disease as an outpatient follows with Dr. Shea, history of CAD post-PCI and stent placement under the care of cardiology and regular basis, hypertension and hypertensive cardiovascular dis ease, hypothyroidism, patient was recently seen by Dr. Shea as an outpatient his Parkinson medications were adjusted and these adjustment were done on 06/14/2019 and by 06/21/2019 patient developed to have a significant confusion and he became more physically disabled not able to move extremities trying to fall backward and the patient has been having more confusion and mental status changes so he was brought to the ER at [facility] yesterday for evaluation he was found to have a mild UTI and was sent to [facility] [place] [facility] [place] for short term subacute rehab and thereafter was sent home. Patient has now been on home for approximately one month, in the care of family members including the and the daughter, was well until today, was noted to have cough, increasing weakness and confusion, and fever. Family cannot correlate as per the events, however on occasion which is rare, he would cough with fluids of solid food. He was supposed to have his levothyroxine increased to 75 g per day since the last admission, however they haven't started this as the prescription hasn't come in yet from the mail. Patient cannot provide much history today, he is very confused information comes from family members. Baseline community walking and requires a walker, no O2 requirements at home, has occasional nebulizer use,. Patient denies any nausea vomiting, no diarrhea, no skin rashes, no sick contacts In the ER there is no heart failure nor confluently pneumonic infiltrate, there is coarsening of interstitial markings, heart size is normal, findings of mild pulmonary fibrosis, no acute lung disease, no change he has a temperature of 102.5, influenza test still be done, double basic count of 11.5, creatinine of 1.26 which is worse, lactic acid normal at 1.9 urinalyses of 33 WBC,. Patient will be empirically started on IV antibiotics Rocephin, consult with Dr. Shaggy lieberman, CAT scan of the chest, high resolution for pulmonary fibrosis eval and infiltrates 08/14/19: The time of exam patient is with physical therapy assisting to transfer to wheelchair. Patient is to have difficulty utilizing walker unable to step forward with assistance from August. Patient was able to rise and wheelchair was placed behind him to sit. Patient was stiff with movements. Patient states that his breathing is better continuing to have weakness and wheezes. Patient is afebrile, hemodynamically stable. WC 8.0, hemoglobin 11.3, B UN 22, creatinine 1.19, influenza A and B were both negative. 08/15/2019: Patient is sitting up in bed in no acute distress. Patient is able to answer questions appropriately. Patient states that he is feeling better today. Patient has been up utilizing a walker without difficulties. Patient is afebrile and hemodynamically stable. W BC 11.2, hemoglobin 12.1, potassium 4.0, BUN 15 creatinine 1.10 urine culture and blood cultures were both negative. Decrease edema to lower extremities utilizing Eulalio wrap however there is noted edema to the upper portion of the lower extremities. Review Of Systems: Constitutional: No fever, no chills, no night sweats. No weight change. Reports weakness, no fatigue or lethargy. No daytime sleepiness. EENT: No headache. No blurred vision or double vision, no loss of vision. No loss of Hearing, no ringing in the ears, no dizziness. No nasal drainage or congestion. No epistaxis. No sore throat. Lungs: No shortness of breath, cough, no sputum production. Reports wheezing. Cardiovascular: No chest pain, no lower extremity edema. No palpitations. No paroxysmal nocturnal dyspnea. No orthopnea. No lightheadedness or dizziness. No syncopal episodes. Abdominal: no abdominal discomfort. No nausea, vomiting. no diarrhea. No constipation. No bloody or tarry stools. no loss of appetite. Genitourinary: No dysuria, increased frequency, urgency. No urinary retention. Musculoskeletal: No myalgias. Reports muscle weakness, reports gait dysfunction, no frequent falls. No back pain. No neck pain. Integumentary: No wounds, no lesions. No rash or pruritus. No unusual bruising. No change in hair or nails. Neurologic: No aphasia. No facial droop. No change in mentation. No head injury. No headache. No paralysis. No paresthesia. Psychiatric: No depression. No anxiety. No mood swings. Endocrine: No abnormal blood sugars. No weight change. No excessive sweating or thirst. Objective - Vital Signs Vital signs: Vital Signs Temp 97.0 F L 08/15/19 05:00 Pulse 80 08/15/19 08:24 Resp 16 08/15/19 05:00 BP 166/88 08/15/19 05:00 Pulse Ox 95 08/15/19 05:00 Intake & Output 08/14/19 08/15/19 08/15/19 18:59 06:59 18:59 Intake Total 1140 1730 Output Total 480 1300 1 Balance 660 430 -1 Intake: Intake, IV Titration 1140 1140 Amount Piperacillin-Tazobactam 3 100 .375 gm In Sodium Chloride 0.9% 100 ml @ 200 mls/hr IVPB ONCE [facility] Rx#:[id number] Piperacillin-Tazobactam 3 100 .375 gm In Sodium Chloride 0.9% 100 ml @ 25 mls/hr IVPB Q8H [facility] Rx#: [id number] Sodium Chloride 0.9% 1, 1040 1040 000 ml @ 130 mls/hr IV . Q7H42M [facility] Rx#:[id number] Oral 590 Output: Urine 480 1300 1 Other: Voiding Method Urinal Urinal Incontinent Diaper Incontinent # Voids 1 # Bowel Movements 1 - Exam General Appearance: Alert, cooperative, no distress, appears stated age. Neck HEENT: Supple, no lymphadenopathy, no thyroid enlargement, no carotid bruits. Lungs: Wheezes throughout especially in the bases, no crackles no rhonchi no deformity Chest Wall: Chest wall decrease expansion with deep inspiration no tenderness and no deformity was found on exam, no costochondral pain or discomfort. Heart: Regular rate and rhythm, S1, S2 normal, no murmur, rub or gallop. Back: Symmetric, no curvature, ROM normal, no CVA tenderness. Abdomen: Soft, non-tender, no rebound or rigidity, no hepatosplenomegaly. Extremities: Extremities normal, atraumatic, no cyanosis, edema 1+ bilaterally upper portion of lower extremities, bilateral Eulalio wraps from toes to knee. Pulses: 2+ and symmetric. Skin: Skin color, texture, tugor normal, no rashes or lesions. Neurologic: Alert oriented x3 cranial nerves II through XII intact, no motor deficit, positive abnormal balance and gait - Labs CBC & Chem 7: 08/15/19 06:44 08/15/19 06:44 Labs: Abnormal Lab Results - Last 24 Hours (Table) 08/15/19 08/15/19 Range/Units 06:44 06:44 WBC 11.2 H (3.8-10.6) k/uL RBC 3.74 L (4.30-5.90) m/uL Hgb 12.1 L (13.0-17.5) gm/dL Hct 36.1 L (39.0-53.0) % Neutrophils # 9.8 H (1.3-7.7) k/uL Chloride 110 H (98-107) mmol/L Glucose 165 H (74-99) mg/dL ALT 14 L (21-72) U/L Creatine Kinase 43 L (55-170) U/L Total Protein 6.0 L (6.3-8.2) g/dL Albumin 3.2 L (3.5-5.0) g/dL Microbiology - Last 24 Hours (Table) 08/13/19 17:10 Urine Culture - Final Urine,Voided 08/13/19 15:50 Blood Culture - Preliminary Blood No Growth after 24 hours Assessment and Plan Plan: 1. Fever, with SIRS, metabolic encephalopathy, has pyuria, and community- acquired pneumonia is suspected, cannot rule out aspiration pneumonia, however he was in subacute facility and hospital less than 3 months ago, the city facility acquired pneumonia is also a possibility, patient will be started on IV Zosyn, blood cultures, sputum cultures, urine cultures, pulmonology consult appreciated. pulmonary, O2 for supplementation, nebulized treatments, CT impression shows bilateral lower lobe pneumonia and atelectasis. Mild thoracic aortic aneurysm. 2. Acute hypoxemic respiratory failure, Solu-Medrol 40 mg every 12 hours, O2 supplementation, sputum cultures awaiting results, nebulized treatments, eval for aspiration, consult speech with modified barium swallow eval, treat underlying primary problem 3. Acute kidney injury, secondary to dehydration, IV fluids for hydration, gentle diuresing, patient has edema if not better with SCDs and compression socks 4 Bilateral leg swelling, d-dimer 0.69, 1 dose of 40 mg of IV Lasix today. Continue oral dose of Lasix 20 mg Eulalio wrap on the legs 5 Parkinson disease. Continue patient on Sinemet 25/100 milligrams twice a day per home 6 CAD post-PCI. Continue metoprolol 12.5 mg once every day, aspirin 81 mg once every day, Lipitor 20 mg orally once every day, nitro glycerin as needed, continue with Lasix and spironolactone. 7. Hypertension and hypertensive cardiovascular disease. Continue metoprolol 12.5 mg orally once every day. 5. Hyperlipidemia. Continue Lipitor 20 mg orally once every day. 6. Hypothyroidism. Continue patient on Synthroid 50 g orally once every day. 7. DVT prophylaxis. Heparin 5000 units subcutaneously every 8 hours. 8. GI prophylaxis. Protonix 40 mg orally once every day. 9. UTI with sepsis. iv zosyn emperic . Check urine culture and blood cultures. CODE STATUS: Full code Admitted to inpatient. Estimate a length of stay 2 midnights. Impression and plan of care have been directed as dictated by the signing physician. Dodie Cotto nurse practitioner acting as scribe for signing physician.
--- NOTE | 2019-08-15 10:17 | PN ---
PROGRESS NOTE DATE OF SERVICE: August 15, 2019 This is an 83-year-old gentleman who was admitted on August 13. He came in primarily because of sudden development of temperature. He was thought to have a possible urinary tract infection versus pneumonia. According to his daughter who observed him when he developed this fever, he also complained of cough, shortness of breath, became very stiff. Currently, he is doing much better. His most recent chest x-ray suggests a left lower lobe infiltrate. He himself is not a particularly good historian. We saw in consultation yesterday, most of the history came from the . Again, he is doing much better. Feeling much better. His CT scan from yesterday is reviewed. His primary is Dr. Chavez. Today he seems to be without any respiratory issues. He is currently not on any oxygen therapy. PHYSICAL EXAMINATION: VITAL SIGNS: Current vital signs are reviewed. Temperature 97, heart rate 80, respiratory rate 16, blood pressure 166/88 mean 114. 2 L saturation 95%, room air saturation 93%. Appears in no acute distress. Certainly no respiratory distress. His cough is a bit congested and wet sounding. HEENT examination is grossly unremarkable. Mucous membranes are moist. NECK: Supple. Full range of motion. No adenopathy or thyromegaly. CARDIOVASCULAR examination reveals regular rhythm and rate. Heart rate 80. S1, S2 normal. LUNGS: A few scattered coarse rhonchi. A few scattered crackles are noted. Breath sounds equal bilaterally. No distinct wheezes are noted. ABDOMEN: Soft. Bowel sounds are heard. EXTREMITIES are wrapped. There is slight edema. SKIN: Without rash. NEUROLOGIC: Examination is difficult to assess. He does suffer from Parkinson disease and also may have a component of dementia. I queried his whether or not he might have Lewy body dementia. CURRENT LABORATORY DATA: Includes a white count 11.2, hemoglobin 12.1, hematocrit 36.1, and normal platelet count. Sodium 140, potassium 4, chloride 110, CO2 24, anion gap is 7, BUN and creatinine were 19 and 1.10. Albumin 3.2. Urine is suggestive of a possible UTI. Influenza studies were negative. Chest x-ray from August [address] scan from August 13 are reviewed. Microbiology including urine and blood sampling is negative. Medications are reviewed. He is on appropriate medications including Pulmicort, DuoNeb, Levaquin, Zosyn and Solu-Medrol. ASSESSMENT: 1. Febrile illness, likely represents either pneumonia and/or urinary tract infection, culture data is still pending. 2. Possible interstitial lung disease/pulmonary fibrosis. 3. History of Parkinson's disease. 4. History of heavy tobacco use, rule out chronic obstructive pulmonary disease. 5. History of coronary artery disease. 6. History of hyperlipidemia. 7. History of hypertension. 8. Coronary artery disease with previous stent placement. 9. Hypothyroidism. 10.Parkinson disease. 11.Dementia. 12.Degenerative joint disease. PLAN: The patient's medications are reviewed. We will cut back the steroids. He is on good antibiotics. We will continue to follow. Prognosis is guarded. No additional recommendations are made. MMODL / IJN: [id number] /
[2019-08-15] MEDS ORDERED: FUROSEMIDE 10 MG/ML 4 ML VIAL IV ONE (12:00)
[2019-08-15] MEDS: ACETAMINOPHEN TAB 325 MG TAB PO PRN (12:11)
[2019-08-15] MEDS: LEVOFLOXACIN 750 MG TAB PO SCH (17:28)
[2019-08-15] MEDS ORDERED: LEVOFLOXACIN 750MG-D5W PMX 750 MG in DEXTROSE/WATER 1 150ML.BAG IVPB SCH (18:00)
[2019-08-15] MEDS: SODIUM CHLORIDE 0.9% 1,000 ML IV SCH ×2 (19:56→21:07)
[2019-08-15] MEDS: methylPREDNISolone SOD SUCCI 40 MG/ML 1 ML VIAL IV SCH (20:38)
[2019-08-16] MEDS: IPRATROPIUM-ALBUTEROL 3 ML NEB INHALATION PRN ×5 (00:53→19:42)
[2019-08-16] MEDS: PIPERACILLIN-TAZOBACTAM 3.375 GM in SODIUM CHLORIDE 0.9% 100 ML IVPB SCH ×3 (04:20→20:44)
[2019-08-16] MEDS: SODIUM CHLORIDE 0.9% 1,000 ML IV SCH ×2 (06:25)
[2019-08-16] MEDS: LEVOTHYROXINE 75 MCG TAB PO SCH (06:25)
[2019-08-16] MEDS: BUDESONIDE 0.5 MG/2 ML NEBU INHALATION SCH (07:06)
[2019-08-16 09:02] LABS: Basophils % (A) 0 %; Eosinophils % (A) 0 %; Lymphocytes % (A) 9 %; MCH 32.1 pg (25.0-35.0); MCHC 33.3 g/dL (31.0-37.0); MCV 96.5 fL (80.0-100.0); Mean Platelet Volume 6.4; Monocytes # (A) 0.6 k/uL (0-1.0); Monocytes % (A) 5 %; Neutrophils % (A) 84 %; Platelet Count 193 k/uL (150-450); RBC 3.73 m/uL (4.30-5.90); RDW 12.7 % (11.5-15.5); WBC 10.7 k/uL (3.8-10.6)
[2019-08-16] MEDS: SPIRONOLACTONE 25 MG TAB PO SCH (09:55)
[2019-08-16] MEDS: FUROSEMIDE 20 MG TAB PO SCH (09:55)
[2019-08-16] MEDS: CARBIDOPA-LEVODOPA 25-100 MG 1 EACH TAB PO SCH ×2 (09:55→20:44)
[2019-08-16] MEDS: HEPARIN SODIUM,PORCINE 5,000 UNIT/ML 1 ML VIAL SQ SCH ×2 (09:55→20:44)
[2019-08-16] MEDS: ASPIRIN 81 MG PO SCH (09:55)
[2019-08-16] MEDS: DOCUSATE 100 MG CAP PO SCH ×2 (09:55→20:44)
[2019-08-16] MEDS: PANTOPRAZOLE 40 MG TABLET PO SCH (09:55)
[2019-08-16] MEDS: methylPREDNISolone SOD SUCCI 40 MG/ML 1 ML VIAL IV SCH (09:55)
[2019-08-16] MEDS: METOPROLOL TARTRATE 12.5 MG TAB PO SCH (09:55)
--- NOTE | 2019-08-16 14:14 | FL ---
EXAMINATION TYPE: FL barium swallow w video DATE OF EXAM: 08/16/2019 COMPARISON: NONE HISTORY: Aspiration TECHNIQUE: Fluoroscopy. FINDINGS: Fluoroscopic guidance was provided for the procedure performed in conjunction with the [facility] pathology department. Please see complete report forthcoming from the Speech Pathology departmen t. Various consistencies from thin liquid to solids were administered. Fluoroscopy time 58 seconds. Number of images: 0. No aspiration or penetration was evident. No significant pooling was observed in the vallecula. There was normal propulsion of the bolus. IMPRESSION: 1. Normal modified barium swallow
--- NOTE | 2019-08-16 15:02 | P.CNNES ---
History of Present Illness Consult date: 08/16/19 Requesting physician: Teresa Mari Reason for Consult: Parkinson's disease History of Present Illness: Patient is a 83-year-old male, who currently lives with his daughter, has diagnosis of Parkinson's disease, currently on Sinemet 25/100 one tablet twice a day. Patient apparently became acutely worse after she had dinner with his family members, when he became worse, and was not able to get up. Patient does not know when was he diagnosed with Parkinson's disease or what medication he is taking. He states that he can walk with a walker for half a mile although patient's nurses are completely declining, as he is at least 3 assist. He is very stiff and weak in the lower limbs. Patient has previously been seen by Dr. Gavin on 06/23/2019 for confusion and shakiness. It was felt to be related to metabolic encephalopathy from dehydration and UTI at that time. Patient had some seizure type spell, and EEG revealed no epileptiform activity, only generalized slowing consistent with encephalopathy. He was not placed on seizure medication at that time. Patient's UA from 08/13/2019 showed large leukocyte esterase, rare bacteria negative nitrite. Urine cultures negative from 08/13/2019. Blood culture nega tive. Patient's B12 was 670 on 06/25/2019, homocystine 8.15, TSH 8.26 on 07/02/2019 with normal free T4 1 0.04. Cholesterol 160, LDL 86.8, HDL 50. Hemoglobin A1c 6.1. Liver panel normal. Patient's MRI of the brain with and without contrast on 06/30/2019 showed moderate diffuse cerebral atrophy and chronic small vessel ischemic changes with progression from 2014 study felt present. No suspicious enhancement or enhancing intraparenchymal masses noted. EKG showed normal sinus rhythm. Patient had a normal modified barium swallow on 08/16/2019. CT of chest showed bilateral lower lobe pneumonia and atelectasis. Mild thoracic aortic aneurysm. Chest x-ray showed COPD worsening left basilar pneumonia. Patient has been started on Zosyn and Levaquin 750 mg orally daily. According to patient's nurse report, patient is very sensitive to medications. Patient is also on prednisone 40 mg daily. Review of Systems Denies headache, diplopia. Past Medical History Past Medical History: Coronary Artery Disease (CAD), COPD, Hyperlipidemia, Hypertension, Neurologic Disorder, Osteoarthritis (OA), Thyroid Disorder Additional Past Medical History / Comment(s): Parkinsons History of Any Multi-Drug Resistant Organisms: None Reported Past Surgical History: Hernia Repair Additional Past Surgical History / Comment(s): heart cath with stent 2002 Past Psychological History: No Psychological Hx Reported Smoking Status: Former smoker Past Alcohol Use History: None Reported Past Drug Use History: None Reported - Past Family History Mother Family Medical History: Congestive Heart Failure (CHF) Father Family Medical History: Cancer Brother(s) Family Medical History: No Reported History Sister(s) Family Medical History: Cancer Son(s) Family Medical History: No Reported History Daughter(s) Family Medical History: Cancer Medications and Allergies Home Medications Medication Instructions Recorded Confirmed Type Ammonium Lactate Cream [Lac-Hydrin 1 applic TOPICAL BID PRN 06/23/19 08/13/19 History 12% Cream] Aspirin 81 mg PO DAILY 06/23/19 08/13/19 History Garlic 1 tab PO DAILY 06/23/19 08/13/19 History Levothyroxine Sodium [Synthroid] 75 mcg PO DAILY 06/23/19 08/13/19 History Metoprolol Tartrate 12.5 mg PO DAILY 06/23/19 08/13/19 History Multivitamins, Thera [Multivitamin 1 tab PO DAILY 06/23/19 08/13/19 History (formulary)] Nitroglycerin 0.4 mg SL Q5M PRN 06/23/19 08/13/19 History Spironolactone 12.5 mg PO DAILY 06/23/19 08/13/19 History Vitamin E (Dl,Tocopheryl Acet) 400 unit PO DAILY 06/23/19 08/13/19 History [Vitamin E] Acetaminophen Tab [Tylenol] 650 mg PO Q6HR PRN tab 06/29/19 08/13/19 Rx Carbidopa-Levodopa 25-100 mg 1 tab PO BID #0 06/29/19 08/13/19 Rx [Sinemet 25-100 mg] Furosemide [Lasix] 20 mg PO DAILY tab 06/29/19 08/13/19 Rx Ipratropium-Albuterol Nebulize 3 ml INHALATION RT-QID PRN 06/29/19 08/13/19 Rx [Duoneb 0.5 mg-3 mg/3 ml Soln] ampul.neb Docusate [Colace] 200 mg PO BID 08/13/19 08/13/19 History Lansoprazole 30 mg PO DAILY 08/13/19 08/13/19 History Allergies Allergy/AdvReac Type Severity Reaction Status Date / Time No Known Allergies Allergy Verified 08/13/19 16:01 Physical Examination - Vital Signs Vital Signs: Vital Signs Temp Pulse Pulse Pulse Resp BP Pulse Ox 08/16/19 11:42 64 08/16/19 11:29 68 08/16/19 11:21 98.3 F 62 18 151/79 94 L 08/16/19 07:21 60 08/16/19 07:07 60 08/16/19 04:21 98.7 F 74 20 140/82 94 L 08/16/19 01:18 68 08/16/19 00:54 68 08/15/19 21:00 98.8 F 68 20 138/80 95 08/15/19 20:10 68 08/15/19 19:53 67 96 08/15/19 16:45 97.8 F 74 19 130/74 93 L Intake and Output 08/15/19 08/16/19 08/16/19 22:59 06:59 14:59 Intake Total 555 1040 750 Output Total 150 Balance 555 890 750 Intake: Intake, IV Titration 555 1040 750 Amount Piperacillin-Tazobactam 3 100 100 .375 gm In Sodium Chloride 0.9% 100 ml @ 25 mls/hr IVPB Q8H [facility] Rx#: [id number] Sodium Chloride 0.9% 1, 455 1040 650 000 ml @ 130 mls/hr IV . Q7H42M [facility] Rx#:[id number] Output: Urine 150 Other: Voiding Method Bedpan Bedpan Urinal Urinal Urinal Diaper Diaper Diaper Incontinent Incontinent # Voids 3 2 # Bowel Movements 1 1 On examination patient is an 83-year-old male, who is awake, but slow mentation. He states it's August 2018 and that he is in [facility] in [facility]. He knows name of the current president. States lives with his daughter and . Patient has bilaterally positive palmomental reflex, negative visuospatial apraxia. Speech is hypophonic, but no aphasia or dysa rthria. He sometimes mumbles unintelligibility. He follows commands. On cranial nerve examination pupils are round and reacting, visual fitzgerald are full, face is symmetric and tongue protrudes to the midline. Palatal elevation and sensation normal. Hearing is mildly decreased. Patient has slow mentation. Muscle strength appears normal in the arms. His hip flexion is about 4 bilaterally. Ankle dorsiflexion appears somewhat weak, but patient did not cooperate. Tone is normal bilaterally. Patient has mild to moderate tremors for [id number] testing bilaterally, mild tremors with posture of the outstretched hands, and very mild occasional tremor noted of the right little and ring finger. Reflexes are symmetric, plantars downgoing. No clonus. I tried to have patient get up and walk, but he could not get up. Spoke to the nurse, who states patient is 3 assist for walking, which occurred almost abruptly prior to admission. Results - Laboratory Findings CBC and BMP: 08/16/19 08:45 08/15/19 06:44 Abnormal Lab Findings: Abnormal Labs 08/13/19 08/13/19 08/13/19 15:50 15:50 15:50 WBC 11.5 H RBC 4.07 L Hgb Hct Neutrophils # 9.4 H Lymphocytes # D-Dimer 0.69 H Chloride BUN 27 H Creatinine 1.26 H Glucose 126 H Calcium ALT Creatine Kinase Total Protein Albumin Urine Blood Ur Leukocyte Esterase Urine WBC Urine Mucus 08/13/19 08/14/19 08/14/19 17:10 06:17 06:17 WBC RBC 3.43 L Hgb 11.3 L Hct 33.4 L Neutrophils # Lymphocytes # 0.8 L D-Dimer Chloride 110 H BUN 22 H Creatinine Glucose Calcium 8.1 L ALT 16 L Creatine Kinase Total Protein 5.2 L Albumin 2.8 L Urine Blood Trace H Ur Leukocyte Esterase Large H Urine WBC 33 H Urine Mucus Rare H 08/15/19 08/15/19 08/16/19 06:44 06:44 08:45 WBC 11.2 H 10.7 H RBC 3.74 L 3.73 L Hgb 12.1 L 12.0 L Hct 36.1 L 36.0 L Neutrophils # 9.8 H 9.0 H Lymphocytes # D-Dimer Chloride 110 H BUN Creatinine Glucose 165 H Calcium ALT 14 L Creatine Kinase 43 L Total Protein 6.0 L Albumin 3.2 L Urine Blood Ur Leukocyte Esterase Urine WBC Urine Mucus Assessment and Plan Assessment: * 83-year-old patient with history of possible Parkinson's disease versus parkinsonism, currently on low-dose Sinemet 25/100 mg twice a day, admitted with acute generalized weakness, impaired gait, and mental confusion with some hallucination. Workup revealed evidence of pneumonia, which is likely the cause of acute deterioration. Patient probably has metabolic encephalopathy. Patient has evidence of postural and intention tremors, which is likely metabolic in nature versus enhancement due to use of corticosteroids. His Parkinson's otherwise appears somewhat stable. * Parkinson's disease versus parkinsonism. Possible underlying cognitive impairment. Lewy body dementia is also on the differential. * Pneumonia, currently on Zosyn and Levaquin. Plan: * Patient is currently on 2 different antibiotics for pneumonia. Hopefully his mentation and gait will improve with treatment of possible pneumonia. * Patient will be continued on same dose of Sinemet 25/100, one tablet twice a day. If he continues to be significantly parkinsonian, with gait impairment, then would increase dose of Sinemet to 25/100, 1 tablet 3 times a day. * PT OT evaluate gait. * Neurology will closely follow.
[2019-08-16] MEDS: ACETAMINOPHEN TAB 325 MG TAB PO PRN (15:15)
[2019-08-16] MEDS: LEVOFLOXACIN 750 MG TAB PO SCH (17:06)
--- NOTE | 2019-08-16 18:07 | P.PN ---
Subjective Progress Note Date: 08/16/19 Principal diagnosis: Bilateral lower lobe pneumonia On 08/16/2019 patient seen in follow-up on medical surgical floor. He is awake and alert, although there is reportedly periods of confusion, patient is fairly pleasant and cooperative, he is currently on 2 L of oxygen, loss of 94%, he is afebrile, hemodynamically stable, his blood sputum and urine cultures have been negative thus far, today's labs have been reviewed, including blood cell count of 10.7, hemoglobin of 12.0, urinalysis showed large amount of leuk trase and increased number of white blood cell count, and influenza screen was negative. Patient is on a combination of Levaquin and Zosyn, nebulized bronchodilators, and he is on oral Lasix. Denies any worsening dyspnea. Denies any chest pain, lung sounds reveal some bilateral crackles and a few scattered wheezes. Objective - Vital Signs Vital signs: Vital Signs Temp 98.3 F 08/16/19 11:21 Pulse 60 08/16/19 15:50 Resp 18 08/16/19 11:21 BP 151/79 08/16/19 11:21 Pulse Ox 94 L 08/16/19 11:21 Intake & Output 08/15/19 08/16/19 08/16/19 18:59 06:59 18:59 Intake Total 1140 1595 750 Output Total 1301 150 Balance -161 1445 750 Intake: Intake, IV Titration 1140 1595 750 Amount Piperacillin-Tazobactam 3 100 100 100 .375 gm In Sodium Chloride 0.9% 100 ml @ 25 mls/hr IVPB Q8H [facility] Rx#: [id number] Sodium Chloride 0.9% 1, 1040 1495 650 000 ml @ 130 mls/hr IV . Q7H42M [facility] Rx#:[id number] Output: Urine 1301 150 Other: Voiding Method Bedpan Bedpan Urinal Urinal Urinal Diaper Diaper Diaper Incontinent Incontinent # Voids 3 2 # Bowel Movements 3 1 1 - Exam GENERAL EXAM: Alert, pleasant, 83-year-old white male, 2 L of oxygen with a pulse ox of 96%, comfortable in no apparent distress. HEAD: Normocephalic/atraumatic. EYES: Normal reaction of pupils, equal size. Conjunctiva pink, sclera white. NOSE: Clear with pink turbinates. THROAT: No erythema or exudates. NECK: No masses, no JVD, no thyroid enlargement, no adenopathy. CHEST: No chest wall deformity. Symmetrical expansion. LUNGS: Equal air entry with bibasilar crackles, and a few wheezes, rhonchi or dullness. CVS: Regular rate and rhythm, normal S1 and S2, no gallops, no murmurs, no rubs ABDOMEN: Soft, nontender. No hepatosplenomegaly, normal bowel sounds, no guarding or rigidity. EXTREMITIES: No clubbing, no edema, no cyanosis, 2+ pulses and upper and lower extremities. MUSCULOSKELETAL: Muscle strength and tone normal. SPINE: No scoliosis or deformity SKIN: No rashes CENTRAL NERVOUS SYSTEM: Alert and oriented -3. No focal deficits, tone is normal in all 4 extremities. PSYCHIATRIC: Alert and oriented -3. Appropriate affect. Intact judgment and insight. - Labs CBC & Chem 7: 08/16/19 08:45 08/15/19 06:44 Labs: Abnormal Lab Results - Last 24 Hours (Table) 08/16/19 Range/Units 08:45 WBC 10.7 H (3.8-10.6) k/uL RBC 3.73 L (4.30-5.90) m/uL Hgb 12.0 L (13.0-17.5) gm/dL Hct 36.0 L (39.0-53.0) % Neutrophils # 9.0 H (1.3-7.7) k/uL Microbiology - Last 24 Hours (Table) 08/15/19 20:45 Gram Stain - Preliminary Sputum Sputum Culture - Preliminary 08/13/19 15:50 Blood Culture - Preliminary Blood No Growth after 48 hours Assessment and Plan Plan: Assessment: #1. Bilateral lower lobe pneumonia #2. Acute urinary tract infection, urine culture has shown no growth #3. Possible interstitial lung disease/pulmonary fibrosis #4. Parkinson's disease on Sinemet #5. Metabolic encephalopathy #6. Acute hypoxemic respiratory failure related to bilateral lower lobe pneumonia #7. Acute kidney injury #8. Coronary artery disease status post PCI #9. Hypertension #10. Hypothyroidism Plan: Continue current antibiotics, cultures remain negative to date, no fever or chills, patient reportedly experienced some intermittent episodes of confusion, has been evaluated by neurology, from pulmonary perspective his breathing is stable, maintain aspiration precautions, continue with nebulized bronchodilators, will follow I performed a history & physical examination of the patient and discussed their management with my nurse practitioner, Carmelina Zayas. I reviewed the nurse practitioner's note and agree with the documented findings and plan of care. Lung sounds are positive for diffuse wheezes throughout the lung fitzgerald. The findings and the impression was discussed with the patient. I attest to the documentation by the nurse practitioner. Time with Patient: Less than 30
[2019-08-16] MEDS: BUDESONIDE 1 MG/2 ML NEBU INHALATION SCH (19:42)
[2019-08-17 02:53] LABS: Glucose,Whole Blood 170 mg/dL (75-99)
[2019-08-17] MEDS: PIPERACILLIN-TAZOBACTAM 3.375 GM in SODIUM CHLORIDE 0.9% 100 ML IVPB SCH (04:10)
[2019-08-17] MEDS: LEVOTHYROXINE 75 MCG TAB PO SCH (06:04)
[2019-08-17] MEDS: SPIRONOLACTONE 25 MG TAB PO SCH (08:17)
[2019-08-17] MEDS: DOCUSATE 100 MG CAP PO SCH ×2 (08:17→20:27)
[2019-08-17] MEDS: CARBIDOPA-LEVODOPA 25-100 MG 1 EACH TAB PO SCH ×2 (08:17→20:27)
[2019-08-17] MEDS: FUROSEMIDE 20 MG TAB PO SCH (08:17)
[2019-08-17] MEDS: predniSONE 20 MG TAB PO SCH (08:17)
[2019-08-17] MEDS: HEPARIN SODIUM,PORCINE 5,000 UNIT/ML 1 ML VIAL SQ SCH ×2 (08:17→20:27)
[2019-08-17] MEDS: METOPROLOL TARTRATE 12.5 MG TAB PO SCH (08:17)
[2019-08-17] MEDS: PANTOPRAZOLE 40 MG TABLET PO SCH (08:17)
[2019-08-17] MEDS: ASPIRIN 81 MG PO SCH (08:17)
--- NOTE | 2019-08-17 09:15 | P.PN ---
Subjective Progress Note Date: 08/17/19 On today's evaluation of 08/17/2019, the patient is still having a congested cough. Unable to bring up much sputum. He is resting comfortably in bed. IV fluids running at 10 mL an hour and the patient is on a combination of Levaquin and Zosyn. He is slow to answer questions. He has a component of metabolic encephalopathy probably related to underlying infection. Lower lobe pneumonia suspected. UTI is suspected. Cultures of been all negative. Repeat chest x- ray was ordered for today. Lower extremities are wrapped for now. No signs of any fluid overload. No aspiration. He has an incentive spirometer to bedside. Objective - Vital Signs Vital signs: Vital Signs Temp 97.9 F 08/17/19 04:21 Pulse 66 08/17/19 04:21 Resp 20 08/17/19 04:21 BP 164/86 08/17/19 04:21 Pulse Ox 93 L 08/17/19 04:21 Intake & Output 08/16/19 08/17/19 08/17/19 18:59 06:59 18:59 Intake Total 750 200 Output Total 400 Balance 750 -200 Intake: Intake, IV Titration 750 200 Amount Piperacillin-Tazobactam 3 100 200 .375 gm In Sodium Chloride 0.9% 100 ml @ 25 mls/hr IVPB Q8H [facility] Rx#: [id number] Sodium Chloride 0.9% 1, 650 000 ml @ 130 mls/hr IV . Q7H42M [facility] Rx#:[id number] Output: Urine 400 Other: Voiding Method Urinal Urinal Diaper Diaper # Voids 2 1 # Bowel Movements 1 - Exam GENERAL EXAM: Alert, pleasant, 83-year-old white male, 2 L of oxygen with a pulse ox of 96%, comfortable in no apparent distress. HEAD: Normocephalic/atraumatic. EYES: Normal reaction of pupils, equal size. Conjunctiva pink, sclera white. NOSE: Clear with pink turbinates. THROAT: No erythema or exudates. NECK: No masses, no JVD, no thyroid enlargement, no adenopathy. CHEST: No chest wall deformity. Symmetrical expansion. LUNGS: Equal air entry with bibasilar crackles, and a few wheezes, rhonchi or dullness. CVS: Regular rate and rhythm, normal S1 and S2, no gallops, no murmurs, no rubs ABDOMEN: Soft, nontender. No hepatosplenomegaly, normal bowel sounds, no guarding or rigidity. EXTREMITIES: No clubbing, no edema, no cyanosis, 2+ pulses and upper and lower extremities. MUSCULOSKELETAL: Muscle strength and tone normal. SPINE: No scoliosis or deformity SKIN: No rashes CENTRAL NERVOUS SYSTEM: Alert and oriented -3. No focal deficits, tone is normal in all 4 extremities. PSYCHIATRIC: Alert and oriented -3. Appropriate affect. Intact judgment and insight. - Labs CBC & Chem 7: 08/16/19 08:45 08/15/19 06:44 Labs: Abnormal Lab Results - Last 24 Hours (Table) 08/17/19 Range/Units 02:52 POC Glucose (mg/dL) 170 H (75-99) mg/dL Microbiology - Last 24 Hours (Table) 08/13/19 15:50 Blood Culture - Preliminary Blood No Growth after 72 hours 08/15/19 20:45 Gram Stain - Preliminary Sputum Sputum Culture - Preliminary Assessment and Plan Plan: #1. Bilateral lower lobe pneumonia, currently on broad-spectrum antibiotics utilizing a combination of Zosyn and Levaquin. He remains on oxygen at 2 L per minute. A follow-up chest x-ray is pending. Cultures of all negative thus far. #2. Acute urinary tract infection, urine culture has shown no growth #3. Possible interstitial lung disease/pulmonary fibrosis #4. Parkinson's disease on Sinemet #5. Metabolic encephalopathy #6. Acute hypoxemic respiratory failure related to bilateral lower lobe pneumonia #7. Acute kidney injury #8. Coronary artery disease status post PCI #9. Hypertension #10. Hypothyroidism Plan Aspiration precautions. Continue Zosyn and Levaquin. Continue using incentive spirometer. CT chest x-ray portable. He continues to be quite stiff and weak and the rigid related to his Parkinson's disease. He does have a component of metabolic encephalopathy related to the above. We'll continue to follow.
--- NOTE | 2019-08-17 09:48 | XR ---
EXAMINATION TYPE: XR chest 1V DATE OF EXAM: 08/17/2019 COMPARISON: 08/14/2019 HISTORY: Shortness of breath. Follow-up for pneumonia. TECHNIQUE: Single frontal view of the chest is obtained. FINDINGS: There is improved aeration at the left lung base. Pulmonary hyperinflation is compatible w ith underlying COPD. Cardia mediastinal silhouette is within normal limits. Diffuse osseous demineral ization. No acute osseous process. No sizable pneumothorax or pleural effusion. IMPRESSION: Improving left basilar airspace disease, nearly completely resolved.
[2019-08-17] MEDS: BUDESONIDE 1 MG/2 ML NEBU INHALATION SCH ×2 (09:49→19:33)
[2019-08-17] MEDS: IPRATROPIUM-ALBUTEROL 3 ML NEB INHALATION PRN ×3 (10:56→19:33)
--- NOTE | 2019-08-17 14:56 | P.PN ---
Subjective Progress Note Date: 08/16/19 This is an 83-year-old male one of Dr. Chavez with a previous medical history significant for Parkinson disease as an outpatient follows with Dr. Shea, history of CAD post-PCI and stent placement under the care of cardiology and regular basis, hypertension and hypertensive cardiovascular di sease, hypothyroidism, patient was recently seen by Dr. Shea as an outpatient his Parkinson medications were adjusted and these adjustment were done on 06/14/2019 and by 06/21/2019 patient developed to have a significant confusion and he became more physically disabled not able to move extremities trying to fall backward and the patient has been having more confusion and mental status changes so he was brought to the ER at [facility] yesterday for evaluation he was found to have a mild UTI and was sent to [facility] for short term subacute rehab and thereafter was sent home. Patient has now been on home for approximately one month, in the care of family members including the and the daughter, was well until today, was noted to have cough, increasing weakness and confusion, and fever. Family cannot correlate as per the events, however on occasion which is rare, he would cough with fluids of solid food. He was supposed to have his levothyroxine increased to 75 g per day since the last admission, however they haven't started this as the prescription hasn't come in yet from the mail. Patient cannot provide much history today, he is very confused information comes from family members. Baseline community walking and requires a walker, no O2 requirements at home, has occasional nebulizer use,. Patient denies any nausea vomiting, no diarrhea, no skin rashes, no sick contacts In the ER there is no heart failure nor confluently pneumonic infiltrate, there is coarsening of interstitial markings, heart size is normal, findings of mild pulmonary fibrosis, no acute lung disease, no change he has a temperature of 102.5, influenza test still be done, double basic count of 11.5, creatinine of 1.26 which is worse, lactic acid normal at 1.9 urinalyses of 33 WBC,. Patient will be empirically started on IV antibiotics Rocephin, consult with Dr. Shaggy lieberman, CAT scan of the chest, high resolution for pulmonary fibrosis eval and infiltrates 08/14/19: The time of exam patient is with physical therapy assisting to transfer to wheelchair. Patient is to have difficulty utilizing walker unable to step forward with assistance from August. Patient was able to rise and wheelchair was placed behind him to sit. Patient was stiff with movements. Patient states that his breathing is better continuing to have weakness and wheezes. Patient is afebrile, hemodynamically stable. WC 8.0, hemoglobin 11.3, B UN 22, creatinine 1.19, influenza A and B were both negative. 08/15/2019: Patient is sitting up in bed in no acute distress. Patient is able to answer questions appropriately. Patient states that he is feeling better today. Patient has been up utilizing a walker without difficulties. Patient is afebrile and hemodynamically stable. W BC 11.2, hemoglobin 12.1, potassium 4.0, BUN 15 creatinine 1.10 urine culture and blood cultures were both negative. Decrease edema to lower extremities utilizing Eulalio wrap however there is noted edema to the upper portion of the lower extremities. 08/16: Patient will be scheduled for modified barium swallow with speech therapy and continue aspiration precautions. Consult in place with Dr. Zaragoza and neurology. Discussed discharge planning with the family and they would prefer the patient come home [facility] would be their choice for subacute if needed. The patient did have worsening confusion this morning and incontinent of urine and stool which is also new for him. He has been placed on oxygen at 2 L nasal cannula. Patient is now not assisting with rolling in bed. Family states that he is not sleeping well at nighttime. Solu-Medrol will be decreased with plan to start prednisone tomorrow. Review Of Systems: Constitutional: No fever, no chills, no night sweats. No weight change. Reports weakness, no fatigue or lethargy. No daytime sleepiness. EENT: No headache. No blurred vision or double vision, no loss of vision. No loss of Hearing, no ringing in the ears, no dizziness. No nasal drainage or congestion. No epistaxis. No sore throat. Lungs: No shortness of breath, cough, no sputum production. Reports wheezing. Cardiovascular: No chest pain, no lower extremity edema. No palpitations. No paroxysmal nocturnal dyspnea. No orthopnea. No lightheadedness or dizziness. No syncopal episodes. Abdominal: no abdominal discomfort. No nausea, vomiting. no diarrhea. No constipation. No bloody or tarry stools. no loss of appetite. Genitourinary: No dysuria, increased frequency, urgency. No urinary retention. Musculoskeletal: No myalgias. Reports muscle weakness, reports gait dysfunction, no frequent falls. No back pain. No neck pain. Integumentary: No wounds, no lesions. No rash or pruritus. No unusual bruising. No change in hair or nails. Neurologic: No aphasia. No facial droop. + change in mentation. No head injury. No headache. No paralysis. No paresthesia. Psychiatric: No depression. No anxiety. No mood swings. Endocrine: No abnormal blood sugars. No weight change. No excessive sweating or thirst. Objective - Vital Signs Vital signs: Vital Signs Temp 97.9 F 08/17/19 04:21 Pulse 72 08/17/19 11:08 Resp 20 08/17/19 04:21 BP 164/86 08/17/19 04:21 Pulse Ox 93 L 08/17/19 04:21 Intake & Output 08/16/19 08/17/19 08/17/19 18:59 06:59 18:59 Intake Total 750 200 Output Total 400 Balance 750 -200 Intake: Intake, IV Titration 750 200 Amount Piperacillin-Tazobactam 3 100 200 .375 gm In Sodium Chloride 0.9% 100 ml @ 25 mls/hr IVPB Q8H [facility] Rx#: [id number] Sodium Chloride 0.9% 1, 650 000 ml @ 130 mls/hr IV . Q7H42M [facility] Rx#:[id number] Output: Urine 400 Other: Voiding Method Urinal Urinal Urinal Diaper Diaper Diaper # Voids 2 1 # Bowel Movements 1 - Exam General Appearance: Alert, cooperative, no distress, appears stated age. Neck HEENT: Supple, no lymphadenopathy, no thyroid enlargement, no carotid bruits. Lungs: Wheezes throughout especially in the bases, no crackles no rhonchi no deformity Chest Wall: Chest wall decrease expansion with deep inspiration no tenderness and no deformity was found on exam, no costochondral pain or discomfort. Heart: Regular rate and rhythm, S1, S2 normal, no murmur, rub or gallop. Back: Symmetric, no curvature, ROM normal, no CVA tenderness. Abdomen: Soft, non-tender, no rebound or rigidity, no hepatosplenomegaly. Extremities: Extremities normal, atraumatic, no cyanosis, edema 1+ bilaterally upper portion of lower extremities, bilateral Eulalio wraps from toes to knee. Pulses: 2+ and symmetric. Skin: Skin color, texture, tugor normal, no rashes or lesions. Neurologic: Alert oriented x1-2 cranial nerves II through XII intact, no motor deficit, positive abnormal balance and gait - Labs CBC & Chem 7: 08/16/19 08:45 08/15/19 06:44 Labs: Abnormal Lab Results - Last 24 Hours (Table) 08/17/19 Range/Units 02:52 POC Glucose (mg/dL) 170 H (75-99) mg/dL Microbiology - Last 24 Hours (Table) 08/13/19 15:50 Blood Culture - Preliminary Blood No Growth after 72 hours 08/15/19 20:45 Gram Stain - Preliminary Sputum Sputum Culture - Preliminary Assessment and Plan Plan: 1. Fever, with SIRS, metabolic encephalopathy, has pyuria, and community- acquired pneumonia is suspected, cannot rule out aspiration pneumonia, however he was in subacute facility and hospital less than 3 months ago, the [facility] facility acquired pneumonia is also a possibility, discontinue Zosyn and start Levaquin, blood cultures, sputum cultures, urine cultures, pulmonology consult appreciated. pulmonary, O2 for supplementation, nebulized treatments, CT impression shows bilateral lower lobe pneumonia and atelectasis. Mild thoracic aortic aneurysm. 2. Acute hypoxemic respiratory failure, Solu-Medrol to be decreased and start prednisone tomorrow, O2 supplementation, sputum cultures awaiting results, nebulized treatments, eval for aspiration, consult speech with modified barium swallow eval, treat underlying primary problem 3. Acute kidney injury, secondary to dehydration, IV fluids for hydration, gentle diuresing, patient has edema if not better with SCDs and compression socks 4 Bilateral leg swelling, d-dimer 0.69, 1 dose of 40 mg of IV Lasix today. Continue oral dose of Lasix 20 mg Eulalio wrap on the legs 5 Parkinson disease. Continue patient on Sinemet 25/100 milligrams twice a day per home 6 CAD post-PCI. Continue metoprolol 12.5 mg once every day, aspirin 81 mg once every day, Lipitor 20 mg orally once every day, nitro glycerin as needed, continue with Lasix and spironolactone. 7. Hypertension and hypertensive cardiovascular disease. Continue metoprolol 12.5 mg orally once every day. 5. Hyperlipidemia. Continue Lipitor 20 mg orally once every day. 6. Hypothyroidism. Continue patient on Synthroid 50 g orally once every day. 7. DVT prophylaxis. Heparin 5000 units subcutaneously every 8 hours. 8. GI prophylaxis. Protonix 40 mg orally once every day. 9. UTI with sepsis. iv zosyn discontinued. Continue Levaquin. CODE STATUS: Full code Admitted to inpatient. Estimate a length of stay 2 midnights. Impression and plan of care have been directed as dictated by the signing physician. Ellie Mckeon nurse practitioner acting as scribe for signing physician.
--- NOTE | 2019-08-17 14:59 | P.PN ---
Subjective Progress Note Date: 08/17/19 This is an 83-year-old male one of Dr. Chavez with a previous medical history significant for Parkinson disease as an outpatient follows with Dr. Shea, history of CAD post-PCI and stent placement under the care of cardiology and regular basis, hypertension and hypertensive cardiovascular dis ease, hypothyroidism, patient was recently seen by Dr. Shea as an outpatient his Parkinson medications were adjusted and these adjustment were done on 06/14/2019 and by 06/21/2019 patient developed to have a significant confusion and he became more physically disabled not able to move extremities trying to fall backward and the patient has been having more confusion and mental status changes so he was brought to the ER at [facility] yesterday for evaluation he was found to have a mild UTI and was sent to [facility] in [facility] for short term subacute rehab and thereafter was sent home. Patient has now been on home for approximately one month, in the care of family members including the and the daughter, was well until today, was noted to have cough, increasing weakness and confusion, and fever. Family cannot correlate as per the events, however on occasion which is rare, he would cough with fluids of solid food. He was supposed to have his levothyroxine increased to 75 g per day since the last admission, however they haven't started this as the prescription hasn't come in yet from the mail. Patient cannot provide much history today, he is very confused information comes from family members. Baseline community walking and requires a walker, no O2 requirements at home, has occasional nebulizer use,. Patient denies any nausea vomiting, no diarrhea, no skin rashes, no sick contacts In the ER there is no heart failure nor confluently pneumonic infiltrate, there is coarsening of interstitial markings, heart size is normal, findings of mild pulmonary fibrosis, no acute lung disease, no change he has a temperature of 102.5, influenza test still be done, double basic count of 11.5, creatinine of 1.26 which is worse, lactic acid normal at 1.9 urinalyses of 33 WBC,. Patient will be empirically started on IV antibiotics Rocephin, consult with Dr. Shaggy lieberman, CAT scan of the chest, high resolution for pulmonary fibrosis eval and infiltrates 08/14/19: The time of exam patient is with physical therapy assisting to transfer to wheelchair. Patient is to have difficulty utilizing walker unable to step forward with assistance from August. Patient was able to rise and wheelchair was placed behind him to sit. Patient was stiff with movements. Patient states that his breathing is better continuing to have weakness and wheezes. Patient is afebrile, hemodynamically stable. WC 8.0, hemoglobin 11.3, B UN 22, creatinine 1.19, influenza A and B were both negative. 08/15/2019: Patient is sitting up in bed in no acute distress. Patient is able to answer questions appropriately. Patient states that he is feeling better today. Patient has been up utilizing a walker without difficulties. Patient is afebrile and hemodynamically stable. W BC 11.2, hemoglobin 12.1, potassium 4.0, BUN 15 creatinine 1.10 urine culture and blood cultures were both negative. Decrease edema to lower extremities utilizing Eulalio wrap however there is noted edema to the upper portion of the lower extremities. 08/16: Patient will be scheduled for modified barium swallow with speech therapy and continue aspiration precautions. Consult in place with Dr. Zaragoza and neurology. Discussed discharge planning with the family and they would prefer the patient come home [facility] their choice for subacute if needed. The patient did have worsening confusion this morning and incontinent of urine and stool which is also new for him. He has been placed on oxygen at 2 L nasal cannula. Patient is now not assisting with rolling in bed. Family states that he is not sleeping well at nighttime. Solu-Medrol will be decreased with plan to start prednisone tomorrow. 08/17:Patient underwent modified barium swallow which came back normal. He has an aspiration precautions. He has been seen by Dr. Zaragoza. Patient has also been seen by neurology with plan to continue Sinemet twice daily but may increase dose to 3 times daily if he continues to have significant parkinsonism. Family is hoping to wean him off this medication so we will keep at the twice a day dosing. Social work to meet with the family regarding discharge planning at subacute rehab. He has been afebrile, heart rate 73, blood pressure 123/74, pulse ox 93% on 2 L. Urine culture finalized with no growth. Sputum culture in progress. Blood culture no growth in 72 hours. Review Of Systems: Constitutional: No fever, no chills, no night sweats. Reports weakness, no fatigue or lethargy. No daytime sleepiness. EENT: No headache. No blurred vision or double vision, no loss of vision. No loss of Hearing, no ringing in the ears, no dizziness. No nasal drainage or congestion. No epistaxis. No sore throat. Lungs: No shortness of breath, cough, no sputum production. Reports wheezing. Cardiovascular: No chest pain, no lower extremity edema. No palpitations. No paroxysmal nocturnal dyspnea. No orthopnea. No lightheadedness or dizziness. No syncopal episodes. Abdominal: no abdominal discomfort. No nausea, vomiting. no diarrhea. No constipation. No bloody or tarry stools. no loss of appetite. Genitourinary: No dysuria, increased frequency, urgency. No urinary retention. Musculoskeletal: No myalgias. Reports muscle weakness, reports gait dysfunction, no frequent falls. No back pain. No neck pain. Integumentary: No wounds, no lesions. No rash or pruritus. No unusual bruising. No change in hair or nails. Neurologic: No aphasia. No facial droop. + change in mentation. No head injury. No headache. No paralysis. No paresthesia. Psychiatric: No depression. No anxiety. No mood swings. Endocrine: No abnormal blood sugars. No weight change. No excessive sweating or thirst. Objective - Vital Signs Vital signs: Vital Signs Temp 96.4 F L 08/17/19 12:08 Pulse 73 08/17/19 12:08 Resp 14 08/17/19 12:08 BP 123/74 08/17/19 12:08 Pulse Ox 93 L 08/17/19 12:08 Intake & Output 08/16/19 08/17/19 08/17/19 18:59 06:59 18:59 Intake Total 750 200 Output Total 400 Balance 750 -200 Intake: Intake, IV Titration 750 200 Amount Piperacillin-Tazobactam 3 100 200 .375 gm In Sodium Chloride 0.9% 100 ml @ 25 mls/hr IVPB Q8H [facility] Rx#: [id number] Sodium Chloride 0.9% 1, 650 000 ml @ 130 mls/hr IV . Q7H42M [facility] Rx#:[id number] Output: Urine 400 Other: Voiding Method Urinal Urinal Urinal Diaper Diaper Diaper # Voids 2 1 # Bowel Movements 1 - Exam General Appearance: Alert, cooperative, no distress, appears stated age. Patient is seen sitting up in chair Neck HEENT: Supple, no lymphadenopathy, no thyroid enlargement, no carotid bruits. Lungs: Wheezes throughout especially in the bases, no crackles no rhonchi no de formity Chest Wall: Chest wall decrease expansion with deep inspiration no tenderness and no deformity was found on exam, no costochondral pain or discomfort. Heart: Regular rate and rhythm, S1, S2 normal, no murmur, rub or gallop. Back: Symmetric, no curvature, ROM normal, no CVA tenderness. Abdomen: Soft, non-tender, no rebound or rigidity, no hepatosplenomegaly. Extremities: Extremities normal, atraumatic, no cyanosis, edema 1+ bilaterally upper portion of lower extremities Pulses: 2+ and symmetric. Skin: Skin color, texture, tugor normal, no rashes or lesions. Neurologic: Alert oriented x1-2 cranial nerves II through XII intact, no motor deficit, positive abnormal balance and gait - Labs CBC & Chem 7: 08/16/19 08:45 08/15/19 06:44 Labs: Abnormal Lab Results - Last 24 Hours (Table) 08/17/19 Range/Units 02:52 POC Glucose (mg/dL) 170 H (75-99) mg/dL Microbiology - Last 24 Hours (Table) 08/13/19 15:50 Blood Culture - Preliminary Blood No Growth after 72 hours 08/15/19 20:45 Gram Stain - Preliminary Sputum Sputum Culture - Preliminary Assessment and Plan Plan: 1. Fever, with SIRS, metabolic encephalopathy, has pyuria, and community- acquired pneumonia is suspected, cannot rule out aspiration pneumonia, however he was in subacute facility and hospital less than 3 months ago, the [facility] facility acquired pneumonia is also a possibility, continue Levaquin, blood cultures, sputum cultures, urine cultures, pulmonology consult appreciated. pulmonary, O2 for supplementation, nebulized treatments, CT impression shows bilateral lower lobe pneumonia and atelectasis. Mild thoracic aortic aneurysm. 2. Acute hypoxemic respiratory failure, continue prednisone, O2 supplementation, sputum cultures awaiting results, nebulized treatments, eval for aspiration, consult speech with modified barium swallow was normal 3. Acute kidney injury, secondary to dehydration, IV fluids for hydration, gentle diuresing, patient has edema if not better with SCDs and compression socks 4 Bilateral leg swelling, d-dimer 0.69, 1 dose of 40 mg of IV Lasix today. Continue oral dose of Lasix 20 mg Eulalio wrap on the legs 5 Parkinson disease. Continue patient on Sinemet 25/100 milligrams twice a day per home 6 CAD post-PCI. Continue metoprolol 12.5 mg once every day, aspirin 81 mg once every day, Lipitor 20 mg orally once every day, nitro glycerin as needed, continue with Lasix and spironolactone. 7. Hypertension and hypertensive cardiovascular disease. Continue metoprolol 12.5 mg orally once every day. 5. Hyperlipidemia. Continue Lipitor 20 mg orally once every day. 6. Hypothyroidism. Continue patient on Synthroid 50 g orally once every day. 7. DVT prophylaxis. Heparin 5000 units subcutaneously every 8 hours. 8. GI prophylaxis. Protonix 40 mg orally once every day. 9. UTI with sepsis. Continue Levaquin. CODE STATUS: Full code Admitted to inpatient. Estimate a length of stay 2 midnights. Discharge plan: Subacute rehab in the next 24 hours. Impression and plan of care have been directed as dictated by the signing physician. Ellie Mckeon nurse practitioner acting as scribe for signing physician.
--- NOTE | 2019-08-17 17:19 | P.PN ---
Subjective Progress Note Date: 08/17/19 Patient continues to be delirious. Confused, offers no new complaints. Somewhat restless. At times patient gets shakes, tremors. Objective - Vital Signs Vital signs: Vital Signs Temp 96.4 F L 08/17/19 12:08 Pulse 84 08/17/19 15:26 Resp 14 08/17/19 12:08 BP 123/74 08/17/19 12:08 Pulse Ox 93 L 08/17/19 12:08 Intake & Output 08/16/19 08/17/19 08/17/19 18:59 06:59 18:59 Intake Total 750 200 Output Total 400 Balance 750 -200 Intake: Intake, IV Titration 750 200 Amount Piperacillin-Tazobactam 3 100 200 .375 gm In Sodium Chloride 0.9% 100 ml @ 25 mls/hr IVPB Q8H [facility] Rx#: [id number] Sodium Chloride 0.9% 1, 650 000 ml @ 130 mls/hr IV . Q7H42M [facility] Rx#:[id number] Output: Urine 400 Other: Voiding Method Urinal Urinal Urinal Diaper Diaper Diaper # Voids 2 1 # Bowel Movements 1 - Exam Patient is being comfortably in the bed. He was almost asleep. When he woke up, he wanted to pass urine, and started shaking. Tone is normal in the upper limbs. Lower extremities still very rigid. - Labs CBC & Chem 7: 08/16/19 08:45 08/15/19 06:44 Labs: Abnormal Lab Results - Last 24 Hours (Table) 08/17/19 Range/Units 02:52 POC Glucose (mg/dL) 170 H (75-99) mg/dL Microbiology - Last 24 Hours (Table) 08/13/19 15:50 Blood Culture - Preliminary Blood No Growth after 72 hours Assessment and Plan Assessment: * 83-year-old patient with history of possible Parkinson's disease versus parkinsonism, currently on low-dose Sinemet 25/100 mg twice a day. * Delirium, likely due to pneumonia/UTI. * Generalized weakness, due to combination of of above. * Tremors, likely related to delirium, use of corticosteroids. * Parkinson's disease versus parkinsonism. Possible underlying cognitive impairment. Lewy body dementia is also on the differential. * Pneumonia, currently on Zosyn and Levaquin. Plan: * Patient is currently on 2 different antibiotics for pneumonia. Hopefully his mentation and gait will improve with treatment of possible pneumonia. * I discussed with patient's in detail about his Parkinson's/parkinsonism. Patient's does not absolutely want the dose of Sinemet to be increased. She states that patient has previously tried multiple times and each time he becomes "zombie". * Patient will be continued on same dose of Sinemet 25/100, one tablet twice a day. Patient follows up with Dr. Shea as outpatient. * PT OT evaluate gait. * Neurology will closely follow.
[2019-08-17] MEDS: LEVOFLOXACIN 750 MG TAB PO SCH (17:41)
[2019-08-17 21:19] VITALS: RESP 20
[2019-08-18] MEDS: LEVOTHYROXINE 75 MCG TAB PO SCH (07:58)
[2019-08-18] MEDS: IPRATROPIUM-ALBUTEROL 3 ML NEB INHALATION PRN ×2 (08:03→12:08)
[2019-08-18] MEDS: BUDESONIDE 1 MG/2 ML NEBU INHALATION SCH (08:03)
[2019-08-18] MEDS: ACETAMINOPHEN TAB 325 MG TAB PO PRN (08:28)
[2019-08-18] MEDS: METOPROLOL TARTRATE 12.5 MG TAB PO SCH (08:29)
[2019-08-18] MEDS: SPIRONOLACTONE 25 MG TAB PO SCH (08:29)
[2019-08-18] MEDS: CARBIDOPA-LEVODOPA 25-100 MG 1 EACH TAB PO SCH (08:29)
[2019-08-18] MEDS: HEPARIN SODIUM,PORCINE 5,000 UNIT/ML 1 ML VIAL SQ SCH (08:30)
[2019-08-18] MEDS: FUROSEMIDE 20 MG TAB PO SCH (08:30)
[2019-08-18] MEDS: DOCUSATE 100 MG CAP PO SCH (08:30)
[2019-08-18] MEDS: PANTOPRAZOLE 40 MG TABLET PO SCH (08:30)
[2019-08-18] MEDS: ASPIRIN 81 MG PO SCH (08:30)
[2019-08-18] MEDS: predniSONE 20 MG TAB PO SCH (08:30)
--- NOTE | 2019-08-18 10:46 | P.PN ---
Subjective Progress Note Date: 08/18/19 On today's evaluation of 08/17/2019, the patient is still having a congested cough. Unable to bring up much sputum. He is resting comfortably in bed. IV fluids running at 10 mL an hour and the patient is on a combination of Levaquin and Zosyn. He is slow to answer questions. He has a component of metabolic encephalopathy probably related to underlying infection. Lower lobe pneumonia suspected. UTI is suspected. Cultures of been all negative. Repeat chest x- ray was ordered for today. Lower extremities are wrapped for now. No signs of any fluid overload. No aspiration. He has an incentive spirometer to bedside. On 08/18/2019 seeing this patient for a follow-up. Clinically much more alert and awake compared to yesterday. The follow-up chest x-ray from yesterday showed improvement in left lower lobe pulmonary infiltrates and those retardation left lung base. No fever. No chills. He passed a swallow evaluation. He is on a prednisone burst taper. On a combination of Zosyn and Levaquin. Objective - Vital Signs Vital signs: Vital Signs Temp 99.3 F 08/17/19 21:00 Pulse 80 08/18/19 08:16 Resp 20 08/17/19 21:00 BP 112/63 08/17/19 21:00 Pulse Ox 91 L 08/17/19 21:00 Intake & Output 08/17/19 08/18/19 08/18/19 18:59 06:59 18:59 Intake Total 590 Balance 590 Intake: Oral 590 Other: Voiding Method Urinal Urinal Diaper Diaper # Voids 4 2 1 - Exam GENERAL EXAM: Alert, pleasant, 83-year-old white male, 2 L of oxygen with a pulse ox of 96%, comfortable in no apparent distress. HEAD: Normocephalic/atraumatic. EYES: Normal reaction of pupils, equal size. Conjunctiva pink, sclera white. NOSE: Clear with pink turbinates. THROAT: No erythema or exudates. NECK: No masses, no JVD, no thyroid enlargement, no adenopathy. CHEST: No chest wall deformity. Symmetrical expansion. LUNGS: Equal air entry with bibasilar crackles, and a few wheezes, rhonchi or dullness. CVS: Regular rate and rhythm, normal S1 and S2, no gallops, no murmurs, no rubs ABDOMEN: Soft, nontender. No hepatosplenomegaly, normal bowel sounds, no guarding or rigidity. EXTREMITIES: No clubbing, no edema, no cyanosis, 2+ pulses and upper and lower extremities. MUSCULOSKELETAL: Muscle strength and tone normal. SPINE: No scoliosis or deformity SKIN: No rashes CENTRAL NERVOUS SYSTEM: Alert and oriented -3. No focal deficits, tone is normal in all 4 extremities. PSYCHIATRIC: Alert and oriented -3. Appropriate affect. Intact judgment and insight. - Labs CBC & Chem 7: 08/16/19 08:45 08/15/19 06:44 Labs: Microbiology - Last 24 Hours (Table) 08/15/19 20:45 Gram Stain - Final Sputum Sputum Culture - Final 08/13/19 15:50 Blood Culture - Preliminary Blood No Growth after 96 hours Assessment and Plan Plan: #1. Bilateral lower lobe pneumonia, currently on broad-spectrum antibiotics utilizing a combination of Zosyn and Levaquin. He remains on oxygen at 2 L per minute. A follow-up chest x-ray today showed improvement in the left lower lobe pulmonary infiltrate. There is some infiltration of the right lung base. Clinically the patient is improving. Cultures of all negative thus far. #2. urinary tract infection, urine culture has shown no growth #3. Possible interstitial lung disease/pulmonary fibrosis #4. Parkinson's disease on Sinemet #5. Metabolic encephalopathy #6. Acute hypoxemic respiratory failure related to bilateral lower lobe pneumonia #7. Acute kidney injury recovered #8. Coronary artery disease status post PCI #9. Hypertension #10. Hypothyroidism Plan Aspiration precautions. Continue Zosyn and Levaquin. Continue using incentive spirometer. CT chest x-ray portable yesterday showed improvement. Continue the antibiotics. Continue the prednisone burst taper. Discharge planning is in progress.
--- NOTE | 2019-08-18 11:13 | P.DS ---
Providers Date of admission: 08/13/19 17:51 Expected date of discharge: 08/18/19 Attending physician: Teresa Mari Consults: 08/13/19 17:41 Consult Physician Routine Consulting Provider: Anu Zaragoza Consult Reason/Comments: pneumonia Do you want consulting provider notified?: Yes 08/16/19 10:57 Consult Physician Routine Consulting Provider: Rianna Kemp Consult Reason/Comments: parkinsons, Do you want consulting provider notified?: Yes Primary care physician: Sohail Chavez [facility] Course: This is an 83-year-old male one of Dr. Chavez with a previous medical history significant for Parkinson disease as an outpatient follows with Dr. Shea, history of CAD post-PCI and stent placement under the care of cardiology and regular basis, hypertension and hypertensive cardiovascular disease, hypothyroidism, patient was recently seen by Dr. Shea as an outpatient his Parkinson medications were adjusted and these adjustment were done on 06/14/2019 and by 06/21/2019 patient developed to have a significant confusion and he became more physically disabled not able to move extremities trying to fall backward and the patient has been having more confusion and mental status changes so he was brought to the ER at [facility] yesterday for evaluation he was found to have a mild UTI and [facility] for [facility] term subacute rehab and thereafter was sent home. Patient has now been on home for approximately one month, in the care of family members including the and the daughter, was well until today, was noted to have cough, increasing weakness and confusion, and fever. Family cannot correlate as per the events, however on occasion which is rare, he would cough with fluids of solid food. He was supposed to have his levothyroxine increased to 75 g per day since the last admission, however they haven't started this as the prescription hasn't come in yet from the mail. Patient cannot provide much history today, he is very confused information comes from family members. Baseline community walking and requires a walker, no O2 requirements at home, has occasional nebulizer use,. Patient denies any nausea vomiting, no diarrhea, no skin rashes, no sick contacts In the ER there is no heart failure nor confluently pneumonic infiltrate, there is coarsening of interstitial markings, heart size is normal, findings of mild pulmonary fibrosis, no acute lung disease, no change he has a temperature of 102.5, influenza test still be done, double basic count of 11.5, creatinine of 1.26 which is worse, lactic acid normal at 1.9 urinalyses of 33 WBC,. Patient will be empirically started on IV antibiotics Rocephin, consult with Dr. Coon pulmonary, CAT scan of the chest, high resolution for pulmonary fibrosis eval and infiltrates 08/14/19: The time of exam patient is with physical therapy assisting to transfer to wheelchair. Patient is to have difficulty utilizing walker unable to step forward with assistance from August. Patient was able to rise and wheelchair was placed behind him to sit. Patient was stiff with movements. Patient states that his breathing is better continuing to have weakness and wheezes. Patient is afebrile, hemodynamically stable. WC 8.0, hemoglobin 11.3, B UN 22, creatinine 1.19, influenza A and B were both negative. 08/15/2019: Patient is sitting up in bed in no acute distress. Patient is able to answer questions appropriately. Patient states that he is feeling better today. Patient has been up utilizing a walker without difficulties. Patient is afebrile and hemodynamically stable. W BC 11.2, hemoglobin 12.1, potassium 4.0, BUN 15 creatinine 1.10 urine culture and blood cultures were both negative. Decrease edema to lower extremities utilizing Eulalio wrap however there is noted edema to the upper portion of the lower extremities. 08/16: Patient will be scheduled for modified barium swallow with speech therapy and continue aspiration precautions. Consult in place with Dr. Zaragoza and neurology. Discussed discharge planning with the family and they would prefer the patient come home [facility] if needed. The patient did have worsening confusion this morning and incontinent of urine and stool which is also new for him. He has been placed on oxygen at 2 L nasal cannula. Patient is now not assisting with rolling in bed. Family states that he is not sleeping well at nighttime. Solu-Medrol will be decreased with plan to start prednisone tomorrow. 08/17:Patient underwent modified barium swallow which came back normal. He has an aspiration precautions. He has been seen by Dr. Zaragoza. Patient has also been seen by neurology with plan to continue Sinemet twice daily but may increase dose to 3 times daily if he continues to have significant parkinsonism. Family is hoping to wean him off this medication so we will keep at the twice a day dosing. Social work to meet with the family regarding discharge planning at subacute rehab. He has been afebrile, heart rate 73, blood pressure 123/74, pulse ox 93% on 2 L. Urine culture finalized with no growth. Sputum culture in progress. Blood culture no growth in 72 hours. 08/18: Patient has been afebrile, heart rate 80, blood pressure 112/63, pulse ox 91-93% on 3 L nasal cannula. Patient's states that his confusion is somewhat better today. Patient denies having any lightheadedness or dizziness. He is currently on oral prednisone that was started this morning. Regarding patient's Parkinson's, family is adamant they do not want to change his dose of Sinemet and are agreeable to follow-up with Dr. Batres as an outpatient. They have met and discussed this with neurology. Contacted the patient's daughter via phone and gave her update regarding plan for discharge today. Patient will be discharged to [facility] today in stable condition. Discharge diagnoses: 1. Sepsis, metabolic encephalopathy secondary to bilateral lower lobe pneumonia, possible aspiration pneumonia and possible UTI. 2. Acute hypoxemic respiratory failure 3. Acute kidney injury secondary to dehydration 4. Bilateral leg swelling 5. Parkinson disease 6. CAD post-PCI 7. Hypertension and hypertensive cardiovascular disease 8. Hyperlipidemia 9. Hypothyroidism. 10. Pulmonary fibrosis Discharge plan: [facility] under the care of Dr. Manuel. Impression and plan of care have been directed as dictated by the signing physician. Ellie Mckeon nurse practitioner acting as scribe for signing physician. Patient Condition at Discharge: Good Plan - Discharge Summary New Discharge Prescriptions: New Levofloxacin [Levaquin] 750 mg PO DAILY@1800 #5 tab predniSONE 0 mg PO DIRECTED #30 tab Budesonide [Pulmicort] 1 mg INHALATION RT-BID nebu Continue Vitamin E (Dl,Tocopheryl Acet) [Vitamin E] 400 unit PO DAILY Levothyroxine Sodium [Synthroid] 75 mcg PO DAILY Spironolactone 12.5 mg PO DAILY Nitroglycerin 0.4 mg SL Q5M PRN PRN Reason: Chest Pain Multivitamins, Thera [Multivitamin (formulary)] 1 tab PO DAILY Metoprolol Tartrate 12.5 mg PO DAILY Garlic 1 tab PO DAILY Aspirin 81 mg PO DAILY Ammonium Lactate Cream [Lac-Hydrin 12% Cream] 1 applic TOPICAL BID PRN PRN Reason: Rash Ipratropium-Albuterol Nebulize [Duoneb 0.5 mg-3 mg/3 ml Soln] 3 ml INHALATION RT-QID PRN ampul.neb PRN Reason: Shortness Of Breath Or Wheezing Acetaminophen Tab [Tylenol] 650 mg PO Q6HR PRN tab PRN Reason: Mild Pain Or Fever > 100.5 Furosemide [Lasix] 20 mg PO DAILY tab Carbidopa-Levodopa 25-100 mg [Sinemet 25-100 mg] 1 tab PO BID #0 Lansoprazole 30 mg PO DAILY Docusate [Colace] 200 mg PO BID Discharge Medication List Ammonium Lactate Cream [Lac-Hydrin 12% Cream] 1 applic TOPICAL BID PRN 06/23/19 [History] Aspirin 81 mg PO DAILY 06/23/19 [History] Garlic 1 tab PO DAILY 06/23/19 [History] Levothyroxine Sodium [Synthroid] 75 mcg PO DAILY 06/23/19 [History] Metoprolol Tartrate 12.5 mg PO DAILY 06/23/19 [History] Multivitamins, Thera [Multivitamin (formulary)] 1 tab PO DAILY 06/23/19 [History] Nitroglycerin 0.4 mg SL Q5M PRN 06/23/19 [History] Spironolactone 12.5 mg PO DAILY 06/23/19 [History] Vitamin E (Dl,Tocopheryl Acet) [Vitamin E] 400 unit PO DAILY 06/23/19 [History] Acetaminophen Tab [Tylenol] 650 mg PO Q6HR PRN tab 06/29/19 [Rx] Carbidopa-Levodopa 25-100 mg [Sinemet 25-100 mg] 1 tab PO BID #0 06/29/19 [Rx] Furosemide [Lasix] 20 mg PO DAILY tab 06/29/19 [Rx] Ipratropium-Albuterol Nebulize [Duoneb 0.5 mg-3 mg/3 ml Soln] 3 ml INHALATION RT-QID PRN ampul.neb 06/29/19 [Rx] Docusate [Colace] 200 mg PO BID 08/13/19 [History] Lansoprazole 30 mg PO DAILY 08/13/19 [History] Budesonide [Pulmicort] 1 mg INHALATION RT-BID nebu 08/18/19 [Rx] Levofloxacin [Levaquin] 750 mg PO DAILY@1800 #5 tab 08/18/19 [Rx] predniSONE 0 mg PO DIRECTED #30 tab 08/18/19 [Rx] Follow up Appointment(s)/Referral(s): [facility] [NON-STAFF] - Zuhair Shea DO [STAFF PHYSICIAN] - 1 Week Sohail Chavez DO [Primary Care Provider] - 1 Week (after discharge from [facility]) Activity/Diet/Wound Care/Special Instructions: Continue Incentive spirometry Discharge Disposition: TRANSFER TO SNF/ECF
[2019-08-18 12:25] VITALS: BP 109/73; TEMP 97.7
[2019-08-18 12:29] VITALS: PULSE 66
--- NOTE | 2019-08-18 13:17 | P.PN ---
Subjective Progress Note Date: 08/18/19 Patient much more calm, awake, sitting in the chair. Physical therapy just worked with the patient. Patient's was also present. No tremors at rest. Patient's states that his cognitive functions are intact. He has slight short-term memory issues but nothing major. Objective - Vital Signs Vital signs: Vital Signs Temp 97.7 F 08/18/19 12:14 Pulse 84 08/18/19 12:19 Resp 20 08/18/19 12:14 BP 109/73 08/18/19 12:14 Pulse Ox 98 08/18/19 12:14 Intake & Output 08/17/19 08/18/19 08/18/19 18:59 06:59 18:59 Intake Total 590 980 Balance 590 980 Intake: Oral 590 980 Other: Voiding Method Urinal Urinal Urinal Diaper Diaper Diaper # Voids 4 2 3 - Exam Patient is sitting comfortably in the chair. He is very alert and awake. Muscle strength is normal. No tremors at rest. Patient's tone is normal in the upper body but has at least moderate degree of rigidity in the lower extremities. He is bradykinetic.. - Labs CBC & Chem 7: 08/16/19 08:45 08/15/19 06:44 Labs: Microbiology - Last 24 Hours (Table) 08/15/19 20:45 Gram Stain - Final Sputum Sputum Culture - Final 08/13/19 15:50 Blood Culture - Preliminary Blood No Growth after 96 hours Assessment and Plan Assessment: * 83-year-old patient with history of possible Parkinson's disease versus parkinsonism, currently on low-dose Sinemet 25/100 mg twice a day. * Delirium, likely due to pneumonia/UTI, much improved. * Generalized weakness, due to combination of of above. * Tremors, likely related to delirium, use of corticosteroids. * Parkinson's disease versus parkinsonism. Possible underlying mild cognitive impairment. Lewy body dementia is also on the differential. * Pneumonia, currently on Zosyn and Levaquin. Plan: * Management of pneumonia/UTI as per internal medicine. * I discussed with patient's in detail about his Parkinson's/parkinsonism. Patient's does not absolutely want the dose of Sinemet to be increased. She states that patient has previously tried multiple times and each time he becomes "zombie". * Patient will be continued on same dose of Sinemet 25/100, one tablet twice a day. Patient follows up with Dr. Shea as outpatient. * PT OT evaluate gait. * Neurology patient clear for discharge.
== END 2019-08-18 14:00 | DRG 871 ==
LOC: EC 15:19 → 3NMEDONC 17:51
PROVIDERS: ADMIT Family Medicine; ATTEND Family Medicine
DX: A41.9 Sepsis, unspecified organism (principal); J96.01 Acute respiratory failure with hypoxia; G93.41 Metabolic encephalopathy; J69.0 Pneumonitis due to inhalation of food and vomit; J18.9 Pneumonia, unspecified organism; N17.9 Acute kidney failure, unspecified; F05 Delirium due to known physiological condition; N39.0 Urinary tract infection, site not specified; R44.2 Other hallucinations; E03.9 Hypothyroidism, unspecified; I11.9 Hypertensive heart disease without heart failure; F02.80 Dementia in other diseases classified elsewhere, unspecified severity, without behavioral disturbance, psychotic disturbance, mood disturbance, and anxiety; G20 Parkinson's disease; E86.0 Dehydration; I71.2 Thoracic aortic aneurysm, without rupture; G25.2 Other specified forms of tremor; T38.0X5A Adverse effect of glucocorticoids and synthetic analogues, initial encounter; M79.89 Other specified soft tissue disorders; R60.0 Localized edema; J84.10 Pulmonary fibrosis, unspecified; I25.10 Atherosclerotic heart disease of native coronary artery without angina pectoris; J44.9 Chronic obstructive pulmonary disease, unspecified; E78.5 Hyperlipidemia, unspecified; R26.89 Other abnormalities of gait and mobility; M19.90 Unspecified osteoarthritis, unspecified site; Z79.82 Long term (current) use of aspirin; Z79.890 Hormone replacement therapy; Z79.899 Other long term (current) drug therapy; Z95.5 Presence of coronary angioplasty implant and graft; Z82.49 Family history of ischemic heart disease and other diseases of the circulatory system; Z80.59 Family history of malignant neoplasm of other urinary tract organ; Z80.3 Family history of malignant neoplasm of breast; Z83.438 Family history of other disorder of lipoprotein metabolism and other lipidemia; Z84.89 Family history of other specified conditions; Z80.8 Family history of malignant neoplasm of other organs or systems; Z80.52 Family history of malignant neoplasm of bladder; Z98.890 Other specified postprocedural states; Z87.891 Personal history of nicotine dependence
CPT/HCPCS: 36415; 71045; 71046; 71250; 74230; 80053; 81001; 82550; 83605; 83880; 85025; 85379; 85610; 85730; 87040; 87070; 87086; 87205; 87502; 93005; 94640; 94760; 96365; 99291